=== PATIENT | male | born 1950 | race Caucasian/White ===

== ENCOUNTER 2018-03-05 15:12 | Emergency (ER) | payer OTHER, SELFPAY ==
[2018-03-05 15:22] VITALS: BP 171/103; PULSE 79; RESP 20; TEMP 36.2; O2SAT 98; BMI 29.4
--- NOTE | 2018-03-05 15:27 | DI.RAD.S_ITS ---
PROCEDURE: XR FINGER RT MIN 2V INDICATIONS: injury, pain TECHNIQUE: AP hand, 2 views of the fifth finger(s) acquired. COMPARISON: [facility], , HAND 3V LEFT, 06/24/2017, 11:31. FINDINGS: Bones: No fractures or dislocations. No suspicious bony lesions. Soft tissues: No suspicious soft tissue calcifications. IMPRESSION: No trauma. Dictated by: Quang Jensen M.D. on 03/05/2018 at 15:50 Approved by: Quang Jensen M.D. on 03/05/2018 at 15:51
[2018-03-05 18:36] VITALS: BP 178/109; PULSE 65; RESP 15; O2SAT 100
--- NOTE | 2018-03-05 18:38 | ED.UPPEXIN ---
HPI - Extremity Injury (Upper) <Esther Michelle PA-C - Last Filed: 03/05/18 23:19> General Chief Complaint: Extremity Injury, Upper Stated Complaint: smashed 5th digit right hand at work Time Seen by Provider: 03/05/18 18:37 Source: patient Mode of arrival: ambulatory Limitations: no limitations History of Present Illness HPI narrative: This 67-year-old right-handed gentleman was bringing down a heavy safe from a high shelf at work and his right pinky finger got caught between the safe and a metal beam. He states that this was painful and started bleeding right away. He applied pressure. He denies any other injury. He states that bleeding has improved with pressure. He denies weakness or paresthesia in the finger. He had a tetanus vaccine last summer Related Data Home Medications Medication Instructions Recorded Confirmed ibuprofen [Advil Liqui-Gel] 200 mg PO Q DAY #0 05/03/16 lisinopril 20 mg PO QPM #0 05/17/16 aspirin 81 mg PO QDAY #0 11/09/16 bupropion HCl [Wellbutrin XL] 300 mg PO QAM 08/01/17 08/01/17 Allergies Allergy/AdvReac Type Severity Reaction Status Date / Time penicillin G Allergy Severe ANAPHALATIC Unverified 06/19/17 12:19 SHOCK codeine Allergy Unknown REALLY Unverified 06/19/17 12:19 SICK WITH NAUSEA. Review of Systems <Esther Michelle PA-C - Last Filed: 03/05/18 23:19> Review of Systems All systems reviewed & are unremarkable except as noted in HPI and below Exam <Esther Michelle PA-C - Last Filed: 03/05/18 23:19> Narrative Exam Narrative: GENERAL APPEARANCE: Patient sitting comfortably, in no distress. LUNGS: Clear to auscultation bilaterally. HEART: Rate and rhythm regular without murmur, normal S1 and S2, no S3 or S4. DERMATOLOGIC: Right 5th finger on the lateral border there is a 3 cm partial avulsion angular laceration that is frayed at the edges, not actively bleeding but bleeds freely when manipulated, no foreign body visible. No bone visible. Appears to be 5mm maximal depth Initial Vital Signs Initial Vital Signs: Vital Signs Temperature 97.1 F L 03/05/18 15:22 Pulse Rate 79 03/05/18 15:22 Respiratory Rate 20 03/05/18 15:22 Blood Pressure 171/103 H 03/05/18 15:22 Pulse Oximetry 98 03/05/18 15:22 <DO Nichole Martinez Last Filed: 03/06/18 03:28> Initial Vital Signs Initial Vital Signs: Vital Signs Temperature 97.1 F L 03/05/18 15:22 Pulse Rate 79 03/05/18 15:22 Respiratory Rate 20 03/05/18 15:22 Blood Pressure 171/103 H 03/05/18 15:22 Pulse Oximetry 98 03/05/18 15:22 Procedures <JARRET Viveros Last Filed: 03/05/18 23:19> Laceration Repair Laceration 1: Site: hand (5th finger) Side (If applicable): right Size (cm): 3 Description: linear, flap and clean Depth: simple, single layer Local Anesthetic: lidocaine 1% (digital block) Amount of anesthesia used (mL): 6 Pre-repair: wound explored, irrigated extensively and deep structures intact (bleeding blood vessel cautery attempted, surgifoam and pressure applied with resolution, no deeper structures visible) Size (cm): 5-0 [facility] [place] Procedure Name of Procedure: Finger was dressed and splinted with a foam/metal splint Course <JARRET Viveros Last Filed: 03/05/18 23:19> Orders Ordered: Discontinued Medications Ibuprofen (Advil) 800 mg PO NOW ONE Stop: 03/05/18 19:17 Last Admin: 03/05/18 19:24 Dose: 800 mg Vital Signs - 8 hr 03/05/18 21:11 Pulse Rate 61 Respiratory Rate 20 Blood Pressure 165/97 H Pulse Oximetry 97 <DO Nichole Martinez Last Filed: 03/06/18 03:28> Orders Ordered: Discontinued Medications Ibuprofen (Advil) 800 mg PO NOW ONE Stop: 03/05/18 19:17 Last Admin: 03/05/18 19:24 Dose: 800 mg Vital Signs - 8 hr 03/05/18 21:11 Pulse Rate 61 Respiratory Rate 20 Blood Pressure 165/97 H Pulse Oximetry 97 MDM - Extremity Injury (Upper) <JARRET Viveros Last Filed: 03/05/18 23:19> Imaging Data finger: Radiologist's impression: View Report History Print [address] [address] XRay Report Signed Patient: Jesus Lezama MR#: [id number] : 1950 Acct:[id number] Age/Sex: 67 / M Date of Service: 03/05/18 Loc: ED Accession Number: [id number] Procedure: XR finger RT min 2V Ordering Provider: Myra Barone D.O. PROCEDURE: XR FINGER RT MIN 2V INDICATIONS: injury, pain TECHNIQUE: AP hand, 2 views of the fifth finger(s) acquired. COMPARISON: [facility], CR, HAND 3V LEFT, 06/24/2017, 11:31. FINDINGS: Bones: No fractures or dislocations. No suspicious bony lesions. Soft tissues: No suspicious soft tissue calcifications. IMPRESSION: No trauma. Dictated by: Quang Jensen M.D. on 03/05/2018 at 15:50 Approved by: Quang Jensen M.D. on 03/05/2018 at 15:51 Discharge Plan Departure Patient Disposition: Home Clinical Impression: Laceration of finger Discharge Date/Time: 03/05/18 21:12 Interventions: ED Discharge Assessment Last Done: 03/05/18 21:11 Instructions: DI for Laceration Repair Activity Restrictions/Additional Instructions: Please return or see your PCP right away if you have any signs of infection as we talked about. Your strength seems to be intact on exam today. You did have a lot of bleeding and I could see a blood vessel that was cut in your finger. Since the bleeding has stopped now, please be sure to keep the finger in the splint at all times and avoid pressure on the area so it can heal. The suture should be ready to remove in about 1 week. You can follow up with your PCP or here for this. Prescriptions: No Action ibuprofen [Advil Liqui-Gel] 200 MG capsule 200 mg PO Q DAY Qty: 0 RF: 0 lisinopril 20 MG tablet 20 mg PO QPM Qty: 0 RF: 0 aspirin 81 MG tablet,delayed release (DR/EC) 81 mg PO QDAY Qty: 0 RF: 0 bupropion HCl [Wellbutrin XL] 300 mg Tablet Extended Release 24 Hr 300 mg PO QAM RF: 0 Referrals: Yulissa Woods DO [Primary Care Provider] - <Hardeep Whiting DO - Last Filed: 03/06/18 03:28> Cosign ED Attending Keriature Attestation: I was immediately available in the department for consultation. Documentation has been reviewed. I agree with assessment and plan.
[2018-03-05] MEDS: IBUPROFEN 400 MG TABLET 800 MG PO (19:24)
--- NOTE | 2018-03-05 19:42 | PC.NURSE ---
provider at bedside sutureing pts laceration. pt tolerating provedure.
[2018-03-05 21:11] VITALS: BP 165/97; PULSE 61; RESP 20; O2SAT 97
== END 2018-03-05 21:12 | disposition home or self-care (01) ==
PROVIDERS: Emergency Provider Internal Medicine; Family Provider Family Medicine; PCP Family Medicine
DX: S61.216A Laceration without foreign body of right little finger without damage to nail, initial encounter (principal); W23.0XXA Caught, crushed, jammed, or pinched between moving objects, initial encounter; Y99.0 Civilian activity done for income or pay
CPT/HCPCS: 12002; 29130; 73140; 99282; 99283

== ENCOUNTER 2019-01-28 15:10 | Emergency (ER) | payer MEDICARE, SELFPAY ==
[2019-01-28 15:33] VITALS: BP 159/107; PULSE 90; RESP 20; TEMP 37.1; O2SAT 100; BMI 29.4
[2019-01-28 15:47] LABS: Alanine Aminotransferase 18 IU/L (<50); Albumin 4.4 g/dL (3.5-5.0); Albumin Globulin Ratio 1.5 (1.0-2.8); Alkaline Phosphatase 128 U/L (38-126); Aspartate Aminotransferase 34 IU/L (17-59); Bilirubin Total 0.7 mg/dL (0.2-1.3); Blood Urea Nitrogen 21 mg/dL (9-20); Calcium 9.2 mg/dL (8.4-10.2); Carbon Dioxide 28 mmol/L (22-32); Chloride 103 mmol/L (98-107); Estimated Glomerular Filt Rate 50.5 mL/min (>60); Globulin 2.9 g/dL (1.7-4.1); Glucose 178 mg/dL (80-110); HEMOLYSIS 16 (0-50); Lipase 72 U/L (23-300); Potassium 4.2 mmol/L (3.4-5.1); Sodium 140 mmol/L (137-145); Total Protein 7.3 g/dL (6.3-8.2)
--- NOTE | 2019-01-28 15:48 | ED.ABDPAIN ---
HPI - Abdominal Pain <BEST Reeder - Last Filed: 01/28/19 21:20> General Chief Complaint: Abdominal Pain Stated Complaint: lower abd pain, radiating to back and groin Time Seen by Provider: 01/28/19 15:24 Source: patient Mode of arrival: Ambulatory Limitations: no limitations History of Present Illness HPI narrative: 68-year-old male with a history of prostatitis due few years ago and renal calculi, presents emergency department today complaining of right-sided pain that started today. He states he woke up and noticed a dull aching 8/10 that is worse with movement better with rest. He states the pain radiates down to his right testicle and to his right flank. He states he notes increasing urinary frequency over the past week. He denies any dysuria, fevers, penile discharge, chills nausea, vomiting, diarrhea, or other concerns. Related Data Home Medications Medication Instructions Recorded Confirmed ibuprofen [Advil Liqui-Gel] 200 mg PO Q DAY #0 05/03/16 04/23/18 lisinopril 20 mg PO QPM #0 05/17/16 04/23/18 aspirin 81 mg PO QDAY #0 11/09/16 04/23/18 bupropion HCl [Wellbutrin XL] 300 mg PO QAM 08/01/17 04/23/18 Previous Rx's Medication Instructions Recorded ciprofloxacin HCl 500 mg PO BID 14 Days #28 tab 01/28/19 Allergies Allergy/AdvReac Type Severity Reaction Status Date / Time penicillin G Allergy Severe ANAPHALATIC Verified 01/28/19 15:33 SHOCK codeine Allergy Unknown REALLY Verified 01/28/19 15:33 SICK WITH NAUSEA. Review of Systems <BEST Reeder - Last Filed: 01/28/19 21:20> Review of Systems Narrative: REVIEW OF SYSTEMS: GENERAL: Denies fever, chills, malaise, or wt. loss. HENT: No head trauma, sore throat, or dysphagia. EYES: No loss of vision, double vision, eye pain, or irritation. CARDIOVASCULAR: No chest pain, palpitations, or orthopnea. RESPIRATORY: No shortness of breath or cough. GASTROINTESTINAL: Complains of right lower quadrant pain, see HPI GENITOURINARY: No flank pain, urinary incontinence, hesitancy, frequency, or dysuria. No penile discharge. MUSCULOSKELETAL: No pain, weakness, or trauma. INTEGUMENTARY: No rash, lesions, or pruritus. NEURO: No numbness, tingling, memory loss, confusion, or headaches. PSYCH: No behavior or mood changes. Patient History <BEST Reeder - Last Filed: 01/28/19 21:20> Medical History CLL (chronic lymphocytic leukemia) (Chronic) HTN (hypertension) (Chronic) Social History Smoking Status: Never smoker alcohol intake frequency: a few times a month Substance Use Type: does not use Exam <BEST Reeder - Last Filed: 01/28/19 21:20> Initial Vital Signs Initial Vital Signs: Vital Signs Temperature 98.7 F 01/28/19 15:33 Pulse Rate 90 01/28/19 15:33 Respiratory Rate 20 01/28/19 15:33 Blood Pressure 159/107 H 01/28/19 15:33 Pulse Oximetry 100 01/28/19 15:33 PHYSICAL EXAMINATION: GENERAL: Well groomed, alert, and cooperative. Answers questions promptly and appropriately. Vital signs noted. HENT: Normocephalic, atraumatic. Hearing intact. Oral mucosa is pink and moist. EYES: Conjunctiva pink, sclera white, no periorbital swelling. CARDIOVASCULAR: S1 and S2 sounds normal. Regular rate and rhythm, no murmurs, clicks, or bruits. No pedal edema. RESPIRATORY: Normal respiratory rate, trachea midline, airway patent. No stridor, nasal flaring or accessory muscle use. Lungs are clear in all alba without wheeze, rhonchi, or crackles. GASTROINTESTINAL: Bowel sounds normoactive. Abdomen is soft and mid lower abdominal tenderness. No organomegaly, no palpable masses. Bladder scan shows < 10ml post void. GENITALURINARY/ RECTAL : No flank tenderness. No testicle swelling, tenderness, or redness. Significant tenderness to prostate with digital exam, bogginess with palpation noted. No penile discharge. Nurse present during prostate examination. MUSCULOSKELETAL: Normal gait and coordination. Equal tone and mass bilaterally. EXTREMITIES: CMS intact, no pedal edema. SKIN: Warm, dry, soft, appropriate color for ethnicity. No lesions, rashes, or wounds. NEURO: Alert and Oriented X 3. Good coordination. No ataxia, or sensory deficits, or cognitive issues. PSYCH: Appropriate affect and mood. <Glenroy Joyce DO - Last Filed: 01/29/19 19:42> Initial Vital Signs Initial Vital Signs: Vital Signs Temperature 98.7 F 01/28/19 15:33 Pulse Rate 90 01/28/19 15:33 Respiratory Rate 20 01/28/19 15:33 Blood Pressure 159/107 H 01/28/19 15:33 Pulse Oximetry 100 01/28/19 15:33 Course <BEST Reeder - Last Filed: 01/28/19 21:20> Orders Ordered: ED Orders 01/28/19 15:29 Complete Blood Count AUTO DIFF Stat Comprehensive Metabolic Panel Stat Lipase Stat Consultations Consultation #1: Patient staffed with Dr. Joyce Vital Signs Vital signs: Vital Signs - 8 hr 01/28/19 15:33 01/28/19 16:00 01/28/19 16:47 Temperature 98.7 F Pulse Rate 90 Respiratory Rate 20 Blood Pressure 159/107 H 165/100 H Blood Pressure [Left Arm] 174/95 H Pulse Oximetry 100 <Glenroy Joyce DO - Last Filed: 01/29/19 19:42> Orders Ordered: ED Orders 01/28/19 15:29 Complete Blood Count AUTO DIFF Stat Comprehensive Metabolic Panel Stat Lipase Stat Vital Signs Vital signs: Vital Signs - 8 hr 01/28/19 15:33 01/28/19 16:00 01/28/19 16:47 Temperature 98.7 F Pulse Rate 90 Respiratory Rate 20 Blood Pressure 159/107 H 165/100 H Blood Pressure [Left Arm] 174/95 H Pulse Oximetry 100 MDM - Abdominal Pain <BEST Reeder - Last Filed: 01/28/19 21:20> Medical Records Attestation: I reviewed the patient's medical records. Lab Data Attestation: I reviewed the patient's lab results. Result diagrams: 01/28/19 15:29 01/28/19 15:29 Labs: Lab Results 01/28/19 01/28/19 Range/Units 15:29 15:29 WBC 61.2 H* (4.5-11.0) X10^3/uL RBC 4.86 (4.5-5.9) X10^6/uL Hgb 15.4 (13.5-17.5) g/dL Hct 45.2 (41-53) % MCV 92.9 (80-100) fL MCH 31.6 (26-34) PG MCHC 34.0 (30-36) % RDW 13.7 (11.6-14.8) % Plt Count 233 (150-400) X10^3/uL Neut % (Auto) Not Reportable Lymph % (Auto) Not Reportable [place] % (Auto) Not Reportable Eos % (Auto) Not Reportable Baso % (Auto) Not Reportable Lymph # (Auto) Not Reportable [place] # (Auto) Not Reportable Baso # (Auto) Not Reportable Seg Neutrophils % 15.6 L (38-70) % Band Neutrophils % 1.0 L (3-7) % Lymphocytes % (Manual) 56.0 H (25-45) % Atypical Lymphs % 22.0 H ( - 0) % Monocytes % (Manual) 2.0 (2-11) % Differential Comment Normal morphology Smudge Cells 3+ H RBC Morphology Normal morphology Sodium 140 (137-145) mmol/L Potassium 4.2 (3.4-5.1) mmol/L Chloride 103 (98-107) mmol/L Carbon Dioxide 28 (22-32) mmol/L BUN 21 H (9-20) mg/dL Creatinine 1.40 H (0.66-1.25) mg/dL Estimated GFR 50.5 L (>60) mL/min BUN/Creatinine Ratio 15.0 (6-22) Glucose 178 H (80-110) mg/dL Calcium 9.2 (8.4-10.2) mg/dL Total Bilirubin 0.7 (0.2-1.3) mg/dL AST 34 (17-59) IU/L ALT 18 (<50) IU/L Alkaline Phosphatase 128 H (38-126) U/L Total Protein 7.3 (6.3-8.2) g/dL Albumin 4.4 (3.5-5.0) g/dL Globulin 2.9 (1.7-4.1) g/dL Albumin/Globulin Ratio 1.5 (1.0-2.8) Lipase 72 (23-300) U/L Point of care testing: Urine Dip Bedside Urine Glucose Negative Bedside Urine Bilirubin - Negative Bedside Urine Ketone - Negative Urine Specific [place] 1.015 Bedside Urine Occult Blood - Negative Bedside Urine pH 6.0 Bedside Urine Protein +/- 15 Bedside Urine Urobilinogen - Negative Bedside Urine Nitrite - Negative Bedside Urine Leukocytes - Negative Esterase MDM Narrative Medical decision making narrative: 88-year-old male complaining of right sided abdominal, flank, and groin pain with with a history of prostatitis and renal calculi. Differential includes prostatitis (most likely due to significant pain with prostate examination, description of pain, history of prostatitis), BPH (less likely as patient's bladder scan was negative for urinary tension), less likely epididymitis or testicle torsion (due to lack of pain intensity on palpation or swelling or erythema). Less likely renal calculi due to lack of CVA tenderness and lack of blood in urine. 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 Patient was prescribed ciprofloxacin for prostatitis. He was encouraged to follow up with his primary care provider in the next week for re-evaluation. Extensive counseling was given for new or worsening symptoms and when to return emergency department. Patient understood and agreed with plan of care. <Glenroy Joyce, DO - Last Filed: 01/29/19 19:42> Lab Data Labs: Lab Results 01/28/19 01/28/19 Range/Units 15:29 15:29 WBC 61.2 H* (4.5-11.0) X10^3/uL RBC 4.86 (4.5-5.9) X10^6/uL Hgb 15.4 (13.5-17.5) g/dL Hct 45.2 (41-53) % MCV 92.9 (80-100) fL MCH 31.6 (26-34) PG MCHC 34.0 (30-36) % RDW 13.7 (11.6-14.8) % Plt Count 233 (150-400) X10^3/uL Neut % (Auto) Not Reportable Lymph % (Auto) Not Reportable [place] % (Auto) Not Reportable Eos % (Auto) Not Reportable Baso % (Auto) Not Reportable Lymph # (Auto) Not Reportable [place] # (Auto) Not Reportable Baso # (Auto) Not Reportable Seg Neutrophils % 15.6 L (38-70) % Band Neutrophils % 1.0 L (3-7) % Lymphocytes % (Manual) 56.0 H (25-45) % Atypical Lymphs % 22.0 H ( - 0) % Monocytes % (Manual) 2.0 (2-11) % Differential Comment Normal morphology Smudge Cells 3+ H RBC Morphology Normal morphology Sodium 140 (137-145) mmol/L Potassium 4.2 (3.4-5.1) mmol/L Chloride 103 (98-107) mmol/L Carbon Dioxide 28 (22-32) mmol/L BUN 21 H (9-20) mg/dL Creatinine 1.40 H (0.66-1.25) mg/dL Estimated GFR 50.5 L (>60) mL/min BUN/Creatinine Ratio 15.0 (6-22) Glucose 178 H (80-110) mg/dL Calcium 9.2 (8.4-10.2) mg/dL Total Bilirubin 0.7 (0.2-1.3) mg/dL AST 34 (17-59) IU/L ALT 18 (<50) IU/L Alkaline Phosphatase 128 H (38-126) U/L Total Protein 7.3 (6.3-8.2) g/dL Albumin 4.4 (3.5-5.0) g/dL Globulin 2.9 (1.7-4.1) g/dL Albumin/Globulin Ratio 1.5 (1.0-2.8) Lipase 72 (23-300) U/L Point of care testing: Urine Dip Bedside Urine Glucose Negative Bedside Urine Bilirubin - Negative Bedside Urine Ketone - Negative Urine Specific [place] 1.015 Bedside Urine Occult Blood - Negative Bedside Urine pH 6.0 Bedside Urine Protein +/- 15 Bedside Urine Urobilinogen - Negative Bedside Urine Nitrite - Negative Bedside Urine Leukocytes - Negative Esterase Discharge Plan Departure Patient Disposition: Home Clinical Impression: Acute prostatitis Discharge Date/Time: 01/28/19 16:47 Instructions: DI for Acute Prostatitis Activity Restrictions/Additional Instructions: Thank you for entrusting me with your care today. As discussed, your white count is elevated from last lab dry at 61.2, your renal function is slightly lower creatinine at 1.4 and GFR at 50.5, this may be related to CLL. However, your examination was concerning for prostatitis. I prescribed an antibiotic (sent to [facility] in [place]), please take this as directed. I recommend following up with your primary care provider in the next week for re-evaluation and further discussion of further testing needed. Return emergency department for worsening symptoms such as fevers, difficulty urinating, vomiting, severe abdominal pain, chest pain, shortness of breath, or other concerns. Prescriptions: New ciprofloxacin HCl 500 mg tablet 500 mg PO BID 14 Days Qty: 28 RF: 0 No Action ibuprofen [Advil Liqui-Gel] 200 MG capsule 200 mg PO Q DAY Qty: 0 RF: 0 lisinopril 20 MG tablet 20 mg PO QPM Qty: 0 RF: 0 aspirin 81 MG tablet,delayed release (DR/EC) 81 mg PO QDAY Qty: 0 RF: 0 bupropion HCl [Wellbutrin XL] 300 mg Tablet Extended Release 24 Hr 300 mg PO QAM RF: 0 Referrals: Yulissa Woods DO [Primary Care Provider] - <Glenroy Joyce DO - Last Filed: 01/29/19 19:42> Sign Out Provider Sign Out Attestation: Dr Joyce Co-Sign Statement: I was available for consultation during this patient's emergency department visit. This chart is signed by myself for administrative purposes only. I did not have direct contact with this patient during this visit. They were seen independently by the APC.
[2019-01-28 15:55] LABS: Hematocrit 45.2 % (41-53); Hemoglobin 15.4 g/dL (13.5-17.5); Mean Corpuscular Hemoglobin 31.6 PG (26-34); Mean Corpuscular Volume 92.9 fL (80-100); Platelet Count 233 X10^3/uL (150-400); Red Blood Cell Count 4.86 X10^6/uL (4.5-5.9); Red Cell Distribution Width 13.7 % (11.6-14.8)
[2019-01-28 15:58] LABS: Add Manual Diff / Slide Review YES; White Blood Cell Count 61.2 X10^3/uL (4.5-11.0)
[2019-01-28 16:00] VITALS: BP 174/95
[2019-01-28 16:27] LABS: Morphology Comment Normal Morphology; Segmented Neutrophils Percent 15.6 % (38-70); Smudge Cells 3+
[2019-01-28 16:30] LABS: RBC Morphology Normal Morphology
[2019-01-28 16:47] VITALS: BP 165/100
== END 2019-01-28 16:47 | disposition home or self-care (01) ==
PROVIDERS: Emergency Provider Nurse Practitioner; Family Provider Family Medicine; PCP Family Medicine
DX: R10.31 Right lower quadrant pain (principal); R35.0 Frequency of micturition; D72.829 Elevated white blood cell count, unspecified
CPT/HCPCS: 36415; 51798; 80053; 81003; 83690; 85025; 99283

== ENCOUNTER → 2019-09-17 16:44 | Outpatient (CLI) | payer MEDICARE, SELFPAY ==
[2019-09-17 17:23] LABS: Hematocrit 40.8 % (41-53); Hemoglobin 13.2 g/dL (13.5-17.5); Mean Corpuscular HGB Conc 32.3 % (30-36); Mean Corpuscular Hemoglobin 31.4 PG (26-34); Platelet Count 185 X10^3/uL (150-400)
[2019-09-17 17:26] LABS: Alanine Aminotransferase 30 IU/L (<50); Albumin 4.4 g/dL (3.5-5.0); Albumin Globulin Ratio 1.8 (1.0-2.8); Alkaline Phosphatase 103 U/L (38-126); Aspartate Aminotransferase 44 IU/L (17-59); BUN Creatinine Ratio 16.1 (6-22); Bilirubin Total 0.5 mg/dL (0.2-1.3); Blood Urea Nitrogen 28 mg/dL (9-20); Calcium 9.5 mg/dL (8.4-10.2); Carbon Dioxide 26 mmol/L (22-32); Chloride 107 mmol/L (98-107); Estimated Glomerular Filt Rate 39.2 mL/min (>60); Globulin 2.4 g/dL (1.7-4.1); Glucose 91 mg/dL (80-110); HEMOLYSIS < 15 (0-50); Lactate Dehydrogenase 476 U/L (313-618); Sodium 138 mmol/L (137-145); Total Protein 6.8 g/dL (6.3-8.2)
[2019-09-17 17:39] LABS: Potassium 5.4 mmol/L (3.4-5.1)
[2019-09-17 17:46] LABS: Add Manual Diff / Slide Review YES
[2019-09-17 17:50] LABS: Neutrophils Absolute Manual 3132 /uL (3000-5900); Total Cells Counted 100
[2019-09-17 17:51] LABS: Anisocytosis 1+; Smudge Cells 4+
[2019-09-17 18:04] LABS: White Blood Cell Count 78.3 X10^3/uL (4.5-11.0)
== END ==
PROVIDERS: Family Provider Family Medicine; PCP Family Medicine
DX: C91.90 Lymphoid leukemia, unspecified not having achieved remission (principal)
CPT/HCPCS: 36415; 80053; 83615; 85025

== ENCOUNTER 2020-07-11 17:02 | Observation (INO) | payer MEDICARE, SELFPAY ==
[2020-07-11] VITALS (9 sets, daily range): BP systolic 136–158; BP diastolic 77–93; PULSE 62–72; RESP 18–20; TEMP 36.2–37.4; O2SAT 94–97; BMI 27.9
--- NOTE | 2020-07-11 17:26 | ED.GENADULT ---
HPI - General Adult General Chief complaint: Abdominal Pain Stated complaint: ABD PAIN DIARRHEA Time Seen by Provider: 07/11/20 17:22 Source: patient Mode of arrival: Ambulatory Limitations: no limitations History of Present Illness HPI narrative: Patient is a 70-year-old male. History of CLL. He is followed by oncology but is not currently undergoing any treatment. Here for evaluation approximately 24 hours of suprapubic abdominal discomfort. He states that the night before he did have some episodes of diarrhea so has not had a bowel movement since the episode started. Has been urinating without any problems and he states this has not changed his discomfort. Has had some nausea but no vomiting. No fevers. Has not tried anything for symptoms prior to arrival. Related Data Home Medications Medication Instructions Recorded Confirmed ibuprofen [Advil Liqui-Gel] 200 mg PO Q DAY #0 05/03/16 09/22/19 aspirin 81 mg PO QDAY #0 11/09/16 09/22/19 bupropion HCl [Wellbutrin XL] 300 mg PO QAM 08/01/17 09/22/19 allopurinol 100 mg PO DAILY 04/05/20 04/05/20 Allergies Allergy/AdvReac Type Severity Reaction Status Date / Time penicillin G Allergy Severe ANAPHALATIC Verified 01/28/19 15:33 SHOCK codeine Allergy Unknown REALLY Verified 01/28/19 15:33 SICK WITH NAUSEA. Review of Systems Constitutional Constitutional: Denies chills, Denies fatigue and Denies headache(s) Eyes Eyes: Denies change in vision ENT Ears, Nose, Mouth, and Throat: Denies headache(s) and Denies sore throat Cardiovascular Cardiovascular: Denies chest pain and Denies dyspnea Respiratory Respiratory: Denies dyspnea Gastrointestinal Gastrointestinal: Reports abdominal pain, Denies change in bowel habits, Reports nausea and Denies vomiting Genitourinary Genitourinary: Denies dysuria and Denies testicular pain Genitourinary: Denies dysuria Musculoskeletal Musculoskeletal: Denies arthralgias and Denies myalgias Integumentary/Breasts Skin/Breast: Denies rash Neurologic Neurologic: Denies behavioral changes and Denies headache(s) Psychiatric Psychiatric: Denies behavioral changes Endocrine Endocrine: Denies fatigue Hematologic/Lymphatic On Anticoagulants: No Patient History Medical History CLL (chronic lymphocytic leukemia) HTN (hypertension) Social History Smoking Status: Never smoker Smoking Status: Never smoker alcohol intake frequency: a few times a month Substance Use Type: does not use Exam Initial Vital Signs Initial Vital Signs: Vital Signs Temperature 99.3 F 07/11/20 17:08 Pulse Rate 72 07/11/20 17:08 Respiratory Rate 20 07/11/20 17:08 Blood Pressure 146/84 H 07/11/20 17:08 Pulse Oximetry 97 07/11/20 17:08 Const General: cooperative and comfortable Limitations: mental status not altered HENMT Head: normal to inspection and normocephalic Resp Effort & Inspection: normal respiratory effort Auscultation: clear to auscultation bilaterally Cardio Rate: regular rate Rhythm: regular rhythm GI Inspection: non-distended Palpation: soft and tender (Suprapubic region) Skin Lesions: no lesions Rashes: no rashes Neuro General: patient alert, patient awake and patient oriented x3 Cognition: normal cognition Speech: speech normal Extrem General: normal to inspection and capillary refill normal Psych Appearance: grossly normal and well kempt Course Orders Ordered: ED Orders 07/11/20 17:28 CT abdomen pelvis w con Stat 07/11/20 17:33 Blood Culture Stat Complete Blood Count AUTO DIFF Stat Comprehensive Metabolic Panel Stat Lactate (Lactic Acid) Stat Lipase Stat Partial Thromboplastin Time Stat Procalcitonin Stat Prothrombin Time INR Stat 07/11/20 17:41 EKG-12 Lead Stat 07/11/20 19:15 COVID19 - ADMIT ([employer]ESSOR swab/PCR) Stat 07/11/20 19:26 Consult to General Surgery Stat 07/11/20 19:27 Blood Culture Stat Ciprofloxacin (Cipro) 400 mg in 200 mls @ 200 mls/hr IV NOW BIANCA Metronidazole (Flagyl) 500 mg in 100 mls @ 100 mls/hr IV NOW ONE Stop: 07/11/20 20:07 Last Admin: 07/11/20 19:25 Dose: 100 mls/hr Documented by: EDDY Sodium Chloride (Normal Saline 0.9%) 1,000 mls @ 125 mls/hr IV CONT BIANCA Last Admin: 07/11/20 19:24 Dose: 125 mls/hr Documented by: EDDY Discontinued Medications Sodium Chloride (Normal Saline 0.9%) 1,000 mls @ 1,000 mls/hr IV BOLUS ONE Stop: 07/11/20 18:21 Last Admin: 07/11/20 17:38 Dose: 1,000 mls/hr Documented by: DAVID Vital Signs Vital signs: Vital Signs - 8 hr 07/11/20 17:08 07/11/20 17:23 07/11/20 17:30 Temperature 99.3 F Pulse Rate 72 69 67 Respiratory Rate 20 Blood Pressure 146/84 H 149/93 H Pulse Oximetry 97 96 94 07/11/20 18:00 07/11/20 18:24 07/11/20 18:30 Temperature Pulse Rate 68 65 64 Respiratory Rate 18 Blood Pressure 148/83 H 158/90 H 156/85 H Pulse Oximetry 97 95 94 Medical Decision Making Lab Data Lab results reviewed: Yes I reviewed the patient's lab results. Result diagrams: 07/11/20 17:33 07/11/20 17:33 Labs: Lab Results 07/11/20 07/11/20 07/11/20 Range/Units 17:33 17:33 17:33 WBC 176.0 H* (4.5-11.0) X10^3/uL RBC 4.03 L (4.5-5.9) X10^6/uL Hgb 13.4 L (13.5-17.5) g/dL Hct 39.7 L (41-53) % MCV 98.7 (80-100) fL MCH 33.3 (26-34) PG MCHC 33.8 (30-36) % RDW 14.6 (11.6-14.8) % Plt Count 195 (150-400) X10^3/uL Neut % (Auto) Not Reportable Lymph % (Auto) Not Reportable [place] % (Auto) Not Reportable Eos % (Auto) Not Reportable Baso % (Auto) Not Reportable Lymph # (Auto) Not Reportable [place] # (Auto) Not Reportable Baso # (Auto) Not Reportable Total Counted 100 Seg Neutrophils % 5.0 L (38-70) % Lymphocytes % (Manual) 82.0 H (25-45) % Atypical Lymphs % 11.0 H ( - 0) % Monocytes % (Manual) 2.0 (2-11) % Neutrophils # (Manual) 8800 H (6932-3973) /uL Smudge Cells 3+ H Platelet Estimate Adequate on smear RBC Morphology Normal morphology PT 12.8 H (10.1-12.7) SECONDS INR 1.1 (0.9-1.3) APTT 43 H (26.4-36.2) SECONDS Sodium 136 L (137-145) mmol/L Potassium 4.3 (3.4-5.1) mmol/L Chloride 105 (98-107) mmol/L Carbon Dioxide 23 (22-32) mmol/L BUN 19 (9-20) mg/dL Creatinine 1.51 H (0.66-1.25) mg/dL Estimated GFR 46.0 L (>60) mL/min BUN/Creatinine Ratio 12.6 (6-22) Glucose 98 (80-110) mg/dL Lactate (0.7-2.1) mmol/L Calcium 8.9 (8.4-10.2) mg/dL Total Bilirubin 1.0 (0.2-1.3) mg/dL AST 29 (17-59) IU/L ALT 16 (<50) IU/L Alkaline Phosphatase 129 H (38-126) U/L Total Protein 6.8 (6.3-8.2) g/dL Albumin 4.1 (3.5-5.0) g/dL Globulin 2.7 (1.7-4.1) g/dL Albumin/Globulin Ratio 1.5 (1.0-2.8) Lipase 29 (23-300) U/L Procalcitonin (<0.5) ng/mL 07/11/20 07/11/20 Range/Units 17:33 17:33 WBC (4.5-11.0) X10^3/uL RBC (4.5-5.9) X10^6/uL Hgb (13.5-17.5) g/dL Hct (41-53) % MCV (80-100) fL MCH (26-34) PG MCHC (30-36) % RDW (11.6-14.8) % Plt Count (150-400) X10^3/uL Neut % (Auto) Lymph % (Auto) [place] % (Auto) Eos % (Auto) Baso % (Auto) Lymph # (Auto) [place] # (Auto) Baso # (Auto) Total Counted Seg Neutrophils % (38-70) % Lymphocytes % (Manual) (25-45) % Atypical Lymphs % ( - 0) % Monocytes % (Manual) (2-11) % Neutrophils # (Manual) (7149-8234) /uL Smudge Cells Platelet Estimate RBC Morphology PT (10.1-12.7) SECONDS INR (0.9-1.3) APTT (26.4-36.2) SECONDS Sodium (137-145) mmol/L Potassium (3.4-5.1) mmol/L Chloride (98-107) mmol/L Carbon Dioxide (22-32) mmol/L BUN (9-20) mg/dL Creatinine (0.66-1.25) mg/dL Estimated GFR (>60) mL/min BUN/Creatinine Ratio (6-22) Glucose (80-110) mg/dL Lactate 0.7 (0.7-2.1) mmol/L Calcium (8.4-10.2) mg/dL Total Bilirubin (0.2-1.3) mg/dL AST (17-59) IU/L ALT (<50) IU/L Alkaline Phosphatase (38-126) U/L Total Protein (6.3-8.2) g/dL Albumin (3.5-5.0) g/dL Globulin (1.7-4.1) g/dL Albumin/Globulin Ratio (1.0-2.8) Lipase (23-300) U/L Procalcitonin 0.18 (<0.5) ng/mL Urine Dip Bedside Urine Glucose Negative Bedside Urine Bilirubin - Negative Bedside Urine Ketone - Negative Urine Specific [place] 1.020 Bedside Urine Occult Blood - Negative Bedside Urine pH 6.0 Bedside Urine Protein +/- 15 Bedside Urine Urobilinogen - Negative Bedside Urine Nitrite - Negative Bedside Urine Leukocytes - Negative Esterase Point of care testing: Urine Dip Bedside Urine Glucose Negative Bedside Urine Bilirubin - Negative Bedside Urine Ketone - Negative Urine Specific [place] 1.020 Bedside Urine Occult Blood - Negative Bedside Urine pH 6.0 Bedside Urine Protein +/- 15 Bedside Urine Urobilinogen - Negative Bedside Urine Nitrite - Negative Bedside Urine Leukocytes - Negative Esterase Imaging Data CT scan - abdomen/pelvis: Radiologist's Impression: [address] [id number] Scan ReportSigned Patient: Jesus Lezama DMR#: [id number]: 2Acct:[id number]/Sex: 70 / MDate of Service: 07/11/20Loc: EDAccession Number: [id number] Procedure: CT abdomen pelvis w con Ordering Provider: Glenroy Joyce D.O. PROCEDURE: CT ABDOMEN PELVIS W CON INDICATIONS: Suprapubic, left lower quadrant abdominal pain TECHNIQUE: After the administration of intravenous contrast, 5 mm thick sections acquired from the diaphragm to the symphysis. 5 mm coronal and sagittal reformats were acquired. For radiation dose reduction, the following was used: automated exposure control, adjustment of mA and/or kV according to patient size. COMPARISON: [facility], CT, ABDOMEN/PELVIS WITH CONTRAST, 05/24/2016, 16:54. FINDINGS: Image quality: Excellent. ABDOMEN: Lung bases: Dependent changes are present within the lung bases bilaterally. Heart size is mildly enlarged. Solid organs: Liver is mildly prominent with steatosis. Gallbladder is unremarkable. Biliary system is non dilated. Pancreas enhances normally. Spleen is enlarged. No adrenal nodules. Kidneys demonstrate normal size and enhancement, without hydronephrosis. Peritoneum and bowel: Bowel loops are nonobstructive. There is significant thickening with pericolonic inflammatory change within the sigmoid colon. Colonic diverticula are present. There are several areas of heterogeneous low attenuation with in the colon wall the largest measuring 6 mm. Multiple mesenteric soft tissue densities are noted Nodes and vessels: There are multiple enlarged lymph nodes within the mesentery in the pericolonic region adjacent to the inflammation, as well as screw extending superiorly into the peripancreatic, periportal, aortic caval and periaortic regions. Lymph nodes are also noted extending to the presacral region. They range in size from 2 mm to 20 mm. Aorta and inferior vena cava are normal in size. Miscellaneous: No ventral hernias. PELVIS: Genitourinary: Bladder wall thickness is normal. Miscellaneous: No inguinal hernias or adenopathy. Bones: No suspicious bony lesions. No vertebral body compression fractures. IMPRESSION: 1. Significant sigmoid inflammatory change and wall thickening with diverticula. Overall appearance is suggestive of colitis secondary to diverticulitis. Areas of low attenuation identified within the wall may represent areas of self contained abscess. In addition, there are numerous enlarged lymph nodes within the mesenteric fat and retroperitoneal region as described above. While these could be reactive in nature secondary to colitis, they can also be seen with neoplasm. It is recommended given numerous lymph nodes, there is interval imaging follow-up and/or colonoscopy to document complete resolution of colitis and exclude presence of underlying mass lesion which could represent malignancy. 2. Hepatosplenomegaly with steatosis. Dictated by: Andie Mishra M.D. on 07/11/2020 at 18:43 Approved by: Andie Mishra M.D. on 07/11/2020 at 18:49 [facility] Narrative Medical decision making narrative: Has a significant leukocytosis today but I suspect that this is secondary to diverticulitis on top of his CLL. He does have a relatively benign abdominal exam however CT scan does show colitis concerning for diverticulitis and also areas of small abscesses. I did discuss the case with Dr. Plasencia on-call for General surgery who recommended the patient be admitted for observation and IV antibiotics. He is allergic to penicillin so he was given Cipro and Flagyl. She has that the medicine team admit the patient because of his history of CLL. I did discuss the case with PAOLA Sweeney the [facility] provider who will admit for further evaluation. I did discuss the admission with the patient and he expressed understanding and agreement. Discharge Plan Departure Patient Disposition: Admitted as Observation Clinical Impression: Diverticulitis, Chronic lymphocytic leukemia Admit Date/Time: 07/11/20 19:27 Admit Provider: Charo Sweeney
[2020-07-11] MEDS: SODIUM CHLORIDE 0.9% 1,000 ML 1000 ML IV (17:38)
[2020-07-11 17:51] LABS: INR 1.1 (0.9-1.3); Prothrombin Time 12.8 SECONDS (10.1-12.7)
[2020-07-11 17:54] LABS: PTT Partial Thromboplastin Tim 43 SECONDS (26.4-36.2)
[2020-07-11 17:57] LABS: Hematocrit 39.7 % (41-53); Hemoglobin 13.4 g/dL (13.5-17.5); Mean Corpuscular HGB Conc 33.8 % (30-36); Mean Corpuscular Hemoglobin 33.3 PG (26-34); Mean Corpuscular Volume 98.7 fL (80-100); Platelet Count 195 X10^3/uL (150-400); Red Blood Cell Count 4.03 X10^6/uL (4.5-5.9); Red Cell Distribution Width 14.6 % (11.6-14.8)
[2020-07-11 17:59] LABS: Add Manual Diff / Slide Review YES
[2020-07-11 18:01] LABS: Lactate (Lactic Acid) 0.7 mmol/L (0.7-2.1)
[2020-07-11 18:02] LABS: Alanine Aminotransferase 16 IU/L (<50); Albumin 4.1 g/dL (3.5-5.0); Albumin Globulin Ratio 1.5 (1.0-2.8); Alkaline Phosphatase 129 U/L (38-126); Aspartate Aminotransferase 29 IU/L (17-59); BUN Creatinine Ratio 12.6 (6-22); Blood Urea Nitrogen 19 mg/dL (9-20); Calcium 8.9 mg/dL (8.4-10.2); Carbon Dioxide 23 mmol/L (22-32); Chloride 105 mmol/L (98-107); Globulin 2.7 g/dL (1.7-4.1); Glucose 98 mg/dL (80-110); HEMOLYSIS < 15 (0-50); Lipase 29 U/L (23-300); Potassium 4.3 mmol/L (3.4-5.1); Sodium 136 mmol/L (137-145); Total Protein 6.8 g/dL (6.3-8.2)
[2020-07-11 18:20] LABS: Procalcitonin 0.18 ng/mL (<0.5)
[2020-07-11 18:52] LABS: Neutrophils Absolute Manual 8800 /uL (3000-5900); Smudge Cells 3+; Total Cells Counted 100
[2020-07-11 18:53] LABS: Platelet Estimate Adequate on smear; RBC Morphology Normal Morphology
[2020-07-11] MEDS: SODIUM CHLORIDE 0.9% 1,000 ML 125 ML IV (19:24)
[2020-07-11] MEDS: metroNIDAZOLE 500 MG/100 ML PIGGYBACK 100 MG IV (19:25)
--- NOTE | 2020-07-11 19:25 | PC.NURSE ---
pt noted to be hypertensive. Denies headache, neuro changes, visual changes, chest pain, shortness of breath. States it's always high discussed hypertensive s/s and return precautions. states she feels well.
--- NOTE | 2020-07-11 19:56 | PM.HP.1 ---
History of Present Illness History of Present Illness Date Patient Seen: 07/11/20 Time Patient Seen: 21:23 Chief complaint: ABD PAIN DIARRHEA Narrative: Jesus Lezama is a 70-year-old male with a history of chronic lymphocytic leukemia currently under monitoring, gout, essential hypertension, and anxiety presented with suprapubic abdominal pain. Patient has a history of having kidney stones removed as early as in his late teens but has not had any episodes for a number of years. He did spike a fever of 102 yesterday but stated it it broke on its own. He denies headaches, difficulty swallowing, shortness of breath, chest pain, nausea or vomiting, dysuria, diarrhea or constipation. He states he uses both ibuprofen for any kind of pain that he has. CT scan ordered by the ED indicated ?1) Significant sigmoid inflammatory change and wall thickening with diverticula. Overall appearance is suggestive of colitis secondary to diverticulitis. Areas of low attenuation identified within the wall may represent areas of self contained abscess. In addition, there are numerous enlarged lymph nodes within the mesenteric fat and retroperitoneal region as described above. While these could be reactive in nature secondary to colitis, they can also be seen with neoplasm. It is recommended given numerous lymph nodes, there is interval imaging follow-up and/or colonoscopy to document complete resolution of colitis and exclude presence of underlying mass lesion which could represent malignancy and 2) Hepatosplenomegaly with steatosis.Patient has a low-grade fever of 99.3, blood pressure 145/77, his heart rate is 66, respiratory rate 18, oxygen saturation 94% on room air, he weighs 88.4 kg with a BMI of 28. His WBC is 176, an increase of almost 25,000 over his WBC drawn a month ago. RBC is 4.03, hemoglobin 13.4, hematocrit 39.7 and a platelet count of a 195. His INR is 1.1 and PT is 12.8. Sodium 136, potassium 4.3, chloride 105, bicarb 23, BUN 19, creatinine is 1.51 with a GFR 46, lactate and procalcitonin are negative, and COVID-19 PCR is negative. Patient History Medical History (Updated 07/11/20 @ 21:41 by BEST Hernandez) CKD (chronic kidney disease) stage 3, GFR 30-59 ml/min CLL (chronic lymphocytic leukemia) Gout History of kidney stones HTN (hypertension) Surgical History History of appendectomy History of colonoscopy History of extraction of renal calculus History of inguinal hernia repair History of umbilical hernia repair Family & Social History Family History Mother Myocardial infarct Son Myocardial infarct Father Dementia Tobacco & Substance use: Smoking Status Never smoker alcohol intake frequency a few times a month Substance Use Type does not use Meds Home Medications and Allergies Home Medications Medication Instructions Recorded Confirmed Type ibuprofen [Advil Liqui-Gel] 200 mg PO Q DAY PRN #0 05/03/16 07/11/20 History aspirin 81 mg PO QDAY #0 11/09/16 07/11/20 History bupropion HCl [Wellbutrin XL] 300 mg PO QPM 08/01/17 07/11/20 History allopurinol 100 mg PO DAILY 04/05/20 07/11/20 History Allergies Allergy/AdvReac Type Severity Reaction Status Date / Time penicillin G Allergy Severe ANAPHALATIC Verified 01/28/19 15:33 SHOCK codeine Allergy Unknown REALLY Verified 01/28/19 15:33 SICK WITH NAUSEA. Review of Systems Review of Systems ROS: Yes All systems reviewed with the patient and are negative except as otherwise documented Exam Vital Signs (past 8 hours): - 07/11/20 17:08 07/11/20 17:23 07/11/20 17:30 Temperature 99.3 F Pulse Rate 72 69 67 Respiratory Rate 20 Blood Pressure 146/84 H 149/93 H Pulse Oximetry 97 96 94 07/11/20 18:00 07/11/20 18:24 07/11/20 18:30 Temperature Pulse Rate 68 65 64 Respiratory Rate 18 Blood Pressure 148/83 H 158/90 H 156/85 H Pulse Oximetry 97 95 94 07/11/20 19:00 Temperature Pulse Rate 66 Respiratory Rate 18 Blood Pressure 145/77 H Pulse Oximetry 94 Oxygen Delivery Method Room Air Narrative Exam Narrative: Gen: Alert, oriented, well-developed 70 y.o. male, NAD HEENT: normocephalic, atraumatic, conjunctiva clear, sclera non-icteric, oral mucosa pink and moist Neck: supple, full ROM, no JVD, trachea is midline Resp: Lungs CTA, non-labored breathing CV: RRR, no murmur or rubs Abd: soft, non-tender, normoactive BTs Skin: no lesions or rashes, dry and intact Neuro: Alert and oriented X 4 w/no focal deficits. Speech clear and coherent. Extremities: moves all 4 extremities, is ambulatory, negative Krystian?s sign Psyche: normal mood and affect. Objective Labs Result Diagrams: 07/11/20 17:33 07/11/20 17:33 Labs: Laboratory Results - last 24 hr 07/11/20 07/11/20 07/11/20 17:33 17:33 17:33 WBC 176.0 H* RBC 4.03 L Hgb 13.4 L Hct 39.7 L MCV 98.7 MCH 33.3 MCHC 33.8 RDW 14.6 Plt Count 195 Neut % (Auto) Not Reportable Lymph % (Auto) Not Reportable [place] % (Auto) Not Reportable Eos % (Auto) Not Reportable Baso % (Auto) Not Reportable Lymph # (Auto) Not Reportable [place] # (Auto) Not Reportable Baso # (Auto) Not Reportable Total Counted 100 Seg Neutrophils % 5.0 L Lymphocytes % (Manual) 82.0 H Atypical Lymphs % 11.0 H Monocytes % (Manual) 2.0 Neutrophils # (Manual) 8800 H Smudge Cells 3+ H Platelet Estimate Adequate on smear RBC Morphology Normal morphology PT 12.8 H INR 1.1 APTT 43 H Sodium 136 L Potassium 4.3 Chloride 105 Carbon Dioxide 23 BUN 19 Creatinine 1.51 H Estimated GFR 46.0 L BUN/Creatinine Ratio 12.6 Glucose 98 Lactate Calcium 8.9 Total Bilirubin 1.0 AST 29 ALT 16 Alkaline Phosphatase 129 H Total Protein 6.8 Albumin 4.1 Globulin 2.7 Albumin/Globulin Ratio 1.5 Lipase 29 Procalcitonin 07/11/20 07/11/20 17:33 17:33 WBC RBC Hgb Hct MCV MCH MCHC RDW Plt Count Neut % (Auto) Lymph % (Auto) [place] % (Auto) Eos % (Auto) Baso % (Auto) Lymph # (Auto) [place] # (Auto) Baso # (Auto) Total Counted Seg Neutrophils % Lymphocytes % (Manual) Atypical Lymphs % Monocytes % (Manual) Neutrophils # (Manual) Smudge Cells Platelet Estimate RBC Morphology PT INR APTT Sodium Potassium Chloride Carbon Dioxide BUN Creatinine Estimated GFR BUN/Creatinine Ratio Glucose Lactate 0.7 Calcium Total Bilirubin AST ALT Alkaline Phosphatase Total Protein Albumin Globulin Albumin/Globulin Ratio Lipase Procalcitonin 0.18 Assessment & Plan Assessment & Plan narrative: Jesus Lezama will be observed overnight for further evaluation and treatment for a suspected diverticulitis flareup. General Surgery was consulted by the ED provider who will see the patient in the am. Suspected acute diverticulitis flareup, present on admission - Indicated by abdomen/pelvic CT - He was given a dose of IV Cipro 400 mg and metronidiazole 500 mg. This will be continued BID and QID respectively - Clears tonight and tomorrow with intention to progress diet - Will likely need follow-up colonoscopy outpatient Chronic kidney disease stage 2, likely not an exacerbation - Creatinine is 1.51 with GFR of 46, appears to be at baseline - U/A is negative for a UTI. Chronic lymphocytic leukemia, with a WBC of 176k - His previous WBC was 154 in mid-June of this year - Unknown if rise is due to bacterial infection or worsening course of CLL - He is followed by Dr. 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 Due to current renal impairment, am holding VTE prophylaxis: Wells risk score: 1 Enoxaparin 40 mg subQ daily Consults: Dr. Zuñiga consult and involvement is appreciated. Patient is observation status as stay is not likely to exceed 2 midnights. FEN: IV ns at 100 ml/hour, clears, BMP and magnesium in the am. Dispo: Probable discharge to home on oral antibiotics when he can tolerate an oral diet Code Status: Full code as discussed with patient Scores Wells' Criteria for PE Clinical signs and symptoms of DVT: No PE is #1 Dx or equally likely: No Heart rate > 100: No Immobilization at least 3 days or surg in previous 4 weeks: No History of PE or DVT: No Hemoptysis: No Malignancy w/Treatment within 6 months or palliative: Yes Wells' PE Score total: 1 Quality VTE Deep Vein Thrombosis/Pulmonary Embolism Present on Admission: No MIPS - Admit I confirm the patient?s Advance Care Plan is present, Code status is documented, Surrogate decision maker is in patient?s record [If Yes, STOP here]: Yes
[2020-07-11 20:25] LABS: COVID19 - ADMIT (NP swab/PCR) Negative (Negative)
[2020-07-11 20:47] LABS: Magnesium 2.2 mg/dL (1.6-2.3)
[2020-07-11] MEDS: SODIUM CHLORIDE 0.9% 1,000 ML 100 ML IV (21:56)
[2020-07-11] MEDS: ASPIRIN EC 81 MG TABLET PO (21:57)
[2020-07-11] MEDS: buPROPion XL 150 MG TAB 300 MG PO (22:00)
--- NOTE | 2020-07-11 22:22 | PC.ADMIT ---
[id number] [facility] [address] Admission Note: The patient,Jesus Lezama,70 y/o, was given written information regarding hospital policies, unit procedures and contact persons. Patient's smoking status: Never smoker. Vital Signs - 8 hr 07/11/20 17:08 07/11/20 17:23 07/11/20 17:30 Temperature 99.3 F Pulse Rate 72 69 67 Respiratory Rate 20 Blood Pressure 146/84 H 149/93 H Pulse Oximetry 97 96 94 07/11/20 18:00 07/11/20 18:24 07/11/20 18:30 Temperature Pulse Rate 68 65 64 Respiratory Rate 18 Blood Pressure 148/83 H 158/90 H 156/85 H Pulse Oximetry 97 95 94 07/11/20 19:00 07/11/20 20:20 Temperature 99.0 F Pulse Rate 66 66 Respiratory Rate 18 20 Blood Pressure 145/77 H 141/87 H Pulse Oximetry 94 95 Patient admitted from ER to under hospitalist care at 2049. Patient A/Ox4, on RA, ambulatory. Patient says he's had abdominal pain and some diarrhea. Current pain was tolerable and only when moving. Patient had NS and Flagyl running from ED. Patient was oriented to room and call light system, able to make needs known.
[2020-07-12] MEDS: metroNIDAZOLE 500 MG/100 ML PIGGYBACK 100 MG IV ×2 (02:07→08:27)
[2020-07-12 03:13] LABS: RBC Urine None Seen (0-5/HPF); WBC Urine None Seen (0-5/HPF)
[2020-07-12 03:26] LABS: Squamous Epithelial Cell Urine 0-1 /HPF (0-5/HPF)
[2020-07-12 03:27] LABS: Bacteria Urine Few (2-10); Culture Indicated Urine Cult Not Indicated
[2020-07-12 05:54] LABS: BUN Creatinine Ratio 12.7 (6-22); Blood Urea Nitrogen 17 mg/dL (9-20); Calcium 8.2 mg/dL (8.4-10.2); Carbon Dioxide 23 mmol/L (22-32); Chloride 108 mmol/L (98-107); Estimated Glomerular Filt Rate 52.9 mL/min (>60); Glucose 83 mg/dL (80-110); HEMOLYSIS < 15 (0-50); Magnesium 2.3 mg/dL (1.6-2.3); Sodium 136 mmol/L (137-145)
[2020-07-12 05:55] LABS: Hematocrit 38.4 % (41-53); Hemoglobin 12.1 g/dL (13.5-17.5); Mean Corpuscular HGB Conc 31.7 % (30-36); Mean Corpuscular Hemoglobin 31.9 PG (26-34); Mean Corpuscular Volume 100.6 fL (80-100); Platelet Count 173 X10^3/uL (150-400); Red Blood Cell Count 3.81 X10^6/uL (4.5-5.9); Red Cell Distribution Width 14.4 % (11.6-14.8)
[2020-07-12 06:00] LABS: Add Manual Diff / Slide Review YES
[2020-07-12 06:01] LABS: White Blood Cell Count 135.7 X10^3/uL (4.5-11.0)
[2020-07-12 06:02] LABS: Potassium 5.1 mmol/L (3.4-5.1)
[2020-07-12 06:37] LABS: Neutrophils Absolute Manual 9499 /uL (3000-5900); Total Cells Counted 100
[2020-07-12 06:38] LABS: Platelet Estimate Adequate on smear; Smudge Cells 3+
[2020-07-12 06:40] LABS: Macrocytosis 1+
[2020-07-12] MEDS: CIPROFLOXACIN 400 MG/200 ML PIGGYBACK 200 MG IV (06:41)
[2020-07-12 07:15] VITALS: BP 141/92; PULSE 63; RESP 17; TEMP 36.6; O2SAT 94
[2020-07-12] MEDS: ENOXAPARIN 40 MG/0.4 ML SYRINGE SUBCUT (08:28)
[2020-07-12 08:37] VITALS: O2SAT 97
[2020-07-12] MEDS: SODIUM CHLORIDE 0.9% 1,000 ML 100 ML IV (09:09)
--- NOTE | 2020-07-12 09:45 | PM.CN ---
History of Present Illness Consult details Date Patient Seen: 07/12/20 Time Patient Seen: 09:45 Chief complaint: ABD PAIN DIARRHEA Reason for consult: Diverticulitis Requesting provider: Charo Sweeney Narrative: This is a 70 yo man with history of CLL (WBC>150,000) not on active treatment, h/o multiple abdominal surgeries for hernia repairs, diverticulosis, and last colonoscopy 2-3 years ago. The patient came into the ER last evening with c/o suprapubic pain. CT scan showed colitis/diverticulitis with possible small abscesses. His WBC was 176 in the ER last night, and this morning was 135. He says his pain is slightly better today. He is passing gas but no stool. He had some diarrhea yesterday, but has not passed any stool since then. He denies any melena, hematochezia, nausea, vomiting. ROS: Constitutional: Denies chills, Denies fatigue and Denies headache(s) Eyes: Denies change in vision Ears, Nose, Mouth, and Throat: Denies headache(s) and Denies sore throat Cardiovascular: Denies chest pain and Denies dyspnea Respiratory: Denies dyspnea Gastrointestinal: As per HPI Genitourinary: Denies dysuria and Denies testicular pain Musculoskeletal: Denies arthralgias and Denies myalgias Skin/Breast: Denies rash Neurologic: Denies behavioral changes and Denies headache(s) Endocrine: Denies fatigue PE: GENERAL: Alert, comfortable. In no distress. Well groomed and cooperative. Appears stated age. Answers questions promptly and appropriately. Vital signs noted. HENT: Normocephalic, atraumatic. Hearing intact. EYES: Conjunctiva pink, sclera white, no periorbital swelling. CARDIOVASCULAR: Regular rate. No pedal edema. RESPIRATORY: Non-tachypneic, breathing comfortably on room air. GASTROINTESTINAL: Abdomen soft and non-distended, no generalized peritonitis. Focal tenderness to palpation in the lower abdomen, right greater than left. Area of greatest tenderness is centralized over the suprapubic region. GENITALURINARY: No flank tenderness. MUSCULOSKELETAL: Equal tone and mass bilaterally. SKIN: Warm, dry, soft, appropriate color for ethnicity. No other lesions, rashes, or wounds. NEURO: Alert and Oriented X 3. No gross sensory deficits, or cognitive issues. PSYCH: Appropriate affect and mood. Meds Home Medications and Allergies Home Medications Medication Instructions Recorded Confirmed Type ibuprofen [Advil Liqui-Gel] 200 mg PO Q DAY PRN #0 05/03/16 07/11/20 History aspirin 81 mg PO QDAY #0 11/09/16 07/11/20 History bupropion HCl [Wellbutrin XL] 300 mg PO QPM 08/01/17 07/11/20 History allopurinol 100 mg PO DAILY 04/05/20 07/11/20 History ciprofloxacin HCl [Cipro] 500 mg PO BID #26 tab 07/12/20 Rx metronidazole [Flagyl] 500 mg PO TID 13 Days #39 tab 07/12/20 Rx Allergies Allergy/AdvReac Type Severity Reaction Status Date / Time penicillin G Allergy Severe ANAPHALATIC Verified 01/28/19 15:33 SHOCK codeine Allergy Unknown REALLY Verified 01/28/19 15:33 SICK WITH NAUSEA. Exam Vital Signs (past 8 hours): - 07/12/20 07:15 07/12/20 08:37 Temperature 97.9 F Pulse Rate 63 Respiratory Rate 17 Blood Pressure 141/92 H Pulse Oximetry 94 97 Oxygen Delivery Method Room Air Oxygen Flow Rate [address] scan - abdomen: Radiologist's impression: [address] [id number] Scan ReportSigned Patient: Jesus Lezama [facility]#: [id number]: 2Acct:[id number]/Sex: 70 / MDate of Service: 07/11/20Loc: EDAccession Number: [id number] Procedure: CT abdomen pelvis w con Ordering Provider: Glenroy Joyce D.O. PROCEDURE: CT ABDOMEN PELVIS W CON INDICATIONS: Suprapubic, left lower quadrant abdominal pain TECHNIQUE: After the administration of intravenous contrast, 5 mm thick sections acquired from the diaphragm to the symphysis. 5 mm coronal and sagittal reformats were acquired. For radiation dose reduction, the following was used: automated exposure control, adjustment of mA and/or kV according to patient size. COMPARISON: [facility], CT, ABDOMEN/PELVIS WITH CONTRAST, 05/24/2016, 16:54. FINDINGS: Image quality: Excellent. ABDOMEN: Lung bases: Dependent changes are present within the lung bases bilaterally. Heart size is mildly enlarged. Solid organs: Liver is mildly prominent with steatosis. Gallbladder is unremarkable. Biliary system is non dilated. Pancreas enhances normally. Spleen is enlarged. No adrenal nodules. Kidneys demonstrate normal size and enhancement, without hydronephrosis. Peritoneum and bowel: Bowel loops are nonobstructive. There is significant thickening with pericolonic inflammatory change within the sigmoid colon. Colonic diverticula are present. There are several areas of heterogeneous low attenuation with in the colon wall the largest measuring 6 mm. Multiple mesenteric soft tissue densities are noted Nodes and vessels: There are multiple enlarged lymph nodes within the mesentery in the pericolonic region adjacent to the inflammation, as well as screw extending superiorly into the peripancreatic, periportal, aortic caval and periaortic regions. Lymph nodes are also noted extending to the presacral region. They range in size from 2 mm to 20 mm. Aorta and inferior vena cava are normal in size. Miscellaneous: No ventral hernias. PELVIS: Genitourinary: Bladder wall thickness is normal. Miscellaneous: No inguinal hernias or adenopathy. Bones: No suspicious bony lesions. No vertebral body compression fractures. IMPRESSION: 1. Significant sigmoid inflammatory change and wall thickening with diverticula. Overall appearance is suggestive of colitis secondary to diverticulitis. Areas of low attenuation identified within the wall may represent areas of self contained abscess. In addition, there are numerous enlarged lymph nodes within the mesenteric fat and retroperitoneal region as described above. While these could be reactive in nature secondary to colitis, they can also be seen with neoplasm. It is recommended given numerous lymph nodes, there is interval imaging follow-up and/or colonoscopy to document complete resolution of colitis and exclude presence of underlying mass lesion which could represent malignancy. 2. Hepatosplenomegaly with steatosis. Dictated by: Andie Mishra M.D. on 07/11/2020 at 18:43 Labs Result Diagrams: 07/12/20 05:10 07/12/20 05:10 Labs: Laboratory Results - last 24 hr 07/11/20 07/11/20 07/11/20 17:33 17:33 17:33 WBC 176.0 H* RBC 4.03 L Hgb 13.4 L Hct 39.7 L MCV 98.7 MCH 33.3 MCHC 33.8 RDW 14.6 Plt Count 195 Neut % (Auto) Not Reportable Lymph % (Auto) Not Reportable [place] % (Auto) Not Reportable Eos % (Auto) Not Reportable Baso % (Auto) Not Reportable Lymph # (Auto) Not Reportable [place] # (Auto) Not Reportable Baso # (Auto) Not Reportable Total Counted 100 Seg Neutrophils % 5.0 L Lymphocytes % (Manual) 82.0 H Atypical Lymphs % 11.0 H Monocytes % (Manual) 2.0 Neutrophils # (Manual) 8800 H Smudge Cells 3+ H Platelet Estimate Adequate on smear RBC Morphology Normal morphology Macrocytosis PT 12.8 H INR 1.1 APTT 43 H Sodium 136 L Potassium 4.3 Chloride 105 Carbon Dioxide 23 BUN 19 Creatinine 1.51 H Estimated GFR 46.0 L BUN/Creatinine Ratio 12.6 Glucose 98 Lactate Calcium 8.9 Magnesium Total Bilirubin 1.0 AST 29 ALT 16 Alkaline Phosphatase 129 H Total Protein 6.8 Albumin 4.1 Globulin 2.7 Albumin/Globulin Ratio 1.5 Lipase 29 Procalcitonin Urine RBC Urine WBC Ur Squamous Epith Cells Urine Bacteria Ur Culture Indicated? SARS-CoV-2 (PCR) 07/11/20 07/11/20 07/11/20 17:33 17:33 17:33 WBC RBC Hgb Hct MCV MCH MCHC RDW Plt Count Neut % (Auto) Lymph % (Auto) [place] % (Auto) Eos % (Auto) Baso % (Auto) Lymph # (Auto) [place] # (Auto) Baso # (Auto) Total Counted Seg Neutrophils % Lymphocytes % (Manual) Atypical Lymphs % Monocytes % (Manual) Neutrophils # (Manual) Smudge Cells Platelet Estimate RBC Morphology Macrocytosis PT INR APTT Sodium Potassium Chloride Carbon Dioxide BUN Creatinine Estimated GFR BUN/Creatinine Ratio Glucose Lactate 0.7 Calcium Magnesium 2.2 Total Bilirubin AST ALT Alkaline Phosphatase Total Protein Albumin Globulin Albumin/Globulin Ratio Lipase Procalcitonin 0.18 Urine RBC Urine WBC Ur Squamous Epith Cells Urine Bacteria Ur Culture Indicated? SARS-CoV-2 (PCR) 07/11/20 07/11/20 07/12/20 17:33 19:25 01:15 WBC RBC Hgb Hct MCV MCH MCHC RDW Plt Count Neut % (Auto) Lymph % (Auto) [place] % (Auto) Eos % (Auto) Baso % (Auto) Lymph # (Auto) [place] # (Auto) Baso # (Auto) Total Counted Seg Neutrophils % Lymphocytes % (Manual) Atypical Lymphs % Monocytes % (Manual) Neutrophils # (Manual) Smudge Cells Platelet Estimate RBC Morphology Macrocytosis PT INR APTT Sodium Potassium Chloride Carbon Dioxide BUN Creatinine Estimated GFR BUN/Creatinine Ratio Glucose Lactate Calcium Magnesium Total Bilirubin AST ALT Alkaline Phosphatase Total Protein Albumin Globulin Albumin/Globulin Ratio Lipase Procalcitonin 0.20 Urine RBC None seen Urine WBC None seen Ur Squamous Epith Cells 0-1 /hpf Urine Bacteria Few (2-10) H Ur Culture Indicated? Cult not indicated SARS-CoV-2 (PCR) Negative 07/12/20 07/12/20 05:10 05:10 WBC 135.7 H* RBC 3.81 L Hgb 12.1 L Hct 38.4 L MCV 100.6 H MCH 31.9 MCHC 31.7 RDW 14.4 Plt Count 173 Neut % (Auto) Not Reportable Lymph % (Auto) Not Reportable [place] % (Auto) Not Reportable Eos % (Auto) Not Reportable Baso % (Auto) Not Reportable Lymph # (Auto) Not Reportable [place] # (Auto) Not Reportable Baso # (Auto) Not Reportable Total Counted 100 Seg Neutrophils % 7.0 L Lymphocytes % (Manual) 86.0 H Atypical Lymphs % 7.0 H Monocytes % (Manual) Neutrophils # (Manual) 9499 H Smudge Cells 3+ H Platelet Estimate Adequate on smear RBC Morphology See below Macrocytosis 1+ H PT INR APTT Sodium 136 L Potassium 5.1 Chloride 108 H Carbon Dioxide 23 BUN 17 Creatinine 1.34 H Estimated GFR 52.9 L BUN/Creatinine Ratio 12.7 Glucose 83 Lactate Calcium 8.2 L Magnesium 2.3 Total Bilirubin AST ALT Alkaline Phosphatase Total Protein Albumin Globulin Albumin/Globulin Ratio Lipase Procalcitonin Urine RBC Urine WBC Ur Squamous Epith Cells Urine Bacteria Ur Culture Indicated? SARS-CoV-2 (PCR) Assessment & Plan Assessment and plan (1) Diverticulitis: Status: Acute (2) CKD (chronic kidney disease) stage 3, GFR 30-59 ml/min: Status: Suspected (3) Chronic lymphocytic leukemia: Status: Acute (4) Gout: Status: Chronic (5) History of hernia repair: Status: Acute (6) History of abdominal surgery: Status: Acute Assessment & Plan narrative: This is a 70-year-old man with acute diverticulitis in the setting of CLL with an extremely high white count. His white count is down a bit this morning, and he feels his pain is improving somewhat. On review of his CT scan I do not find he has any significant evidence of complicated diverticulitis. Given his overall picture, I think he is likely safe to go home on oral antibiotics. I spoke with Dr. Alexander of the hospitalist service this morning, and she plans to speak with Dr. Rendon, which I think is a good idea before letting the patient go home. When he does go home, I would recommend that he take 2 weeks of oral antibiotics, along with a probiotic, and follow-up with his primary care doctor. He is not completely sure when his last colonoscopy was, but I recommended that he have a repeat colonoscopy if it has been more than 5 years. He thinks it may have been 2-3 years, and that the colonoscopy was normal other than diverticulosis. I told him is welcome to follow up with me in my office if he has any further episodes of diverticulitis, or like to consider surgery for removing that part of the colon. Given that this is the 1st episode of diverticulitis, and is relatively mild, I do not think surgery is indicated at this time. If his colonoscopy has been greater than 5 years, or he continues to have symptoms, I will be happy to schedule him for colonoscopy with myself or 1 of my partners. He will need about 6-8 weeks to recover from this diverticulitis episode before we would scope him. COVID-19 COVID-19 status: Negative Result date/Date tested (Pos, Neg/Pending): 07/11/20 Time Spent With Patient Time with patient: Greater than 35 minutes
--- NOTE | 2020-07-12 10:46 | CM.DANOTE ---
DCP: Case received, EMR reviewed and met with patient. Introduced self and role. Was able to obtain information from patient regarding his baseline activity status prior to hospitalization, as well as his current living situation. DCP assessment completed with information currently available. Patient is a 70 year old male who admitted yesterday evening to the care of the hospitalist team. PCP: Dr. Woods. Payer: confirmed: [employer] Medicare. Patient came to the hospital via private vehicle secondary to having abdominal discomfort and diarrhea. Patient holds current diagnosis of colitis secondary to diverticulitis. He is currently getting IV antibiotics. Patient has history of chronic lymphocytic leukemia, and is under treatment. Met with patient in his room, as well as during bedside rounds. Patient was sitting up in his chair, alert and oriented, pleasant. Patient resides in [place] with his spouse, Sanjuana. He is independent at his baseline, and is employed at [employer] in [place]. P: DCP to continue to follow. Plan is for home, could potentially discharge this pm as long as he is able to tolerate diet. Tina Naik RN/[employer] Cutting Machine Operator
[2020-07-12] MEDS: metroNIDAZOLE 500 MG TABLET PO (12:13)
--- NOTE | 2020-07-12 14:02 | PC.NURSE ---
Day shift: Paperwork singed and all questions answered. Pt has all personal belongings. MD scripts sent to Pt's pharmacy by MD willy. Taken to car driven by his spouse by student RN in . Encouraged to contact his PCP for f/u soon. Also encouraged to contact his oncology MD about this hospital admit. Pt happy to be going home today.
--- NOTE | 2020-07-12 17:45 | P.DS_ITS ---
History of Present Illness History of Present Illness Date Patient Seen: 07/12/20 Chief complaint: ABD PAIN DIARRHEA Narrative: Jesus Lezama is a 70-year-old male with a history of chronic l ymphocytic leukemia currently under monitoring, gout, essential hypertension, and anxiety presented with suprapubic abdominal pain. Patient has a history of having kidney stones removed as early as in his late teens but has not had any episodes for a number of years. He did spike a fever of 102 yesterday but stated it it broke on its own. He denies headaches, difficulty swallowing, shortness of breath, chest pain, nausea or vomiting, dysuria, diarrhea or constipation. He states he uses both ibuprofen for any kind of pain that he has. CT scan ordered by the ED indicated ?1) Significant sigmoid inflammatory change and wall thickening with diverticula. Overall appearance is suggestive of colitis secondary to diverticulitis. Areas of low attenuation identified within the wall may represent areas of self contained abscess. In addition, there are numerous enlarged lymph nodes within the mesenteric fat and retroperitoneal region as described above. While these could be reactive in nature secondary to colitis, they can also be seen with neoplasm. It is recommended given numerous lymph nodes, there is interval imaging follow-up and/or colonoscopy to document complete resolution of colitis and exclude presence of underlying mass lesion which could represent malignancy and 2) Hepatosplenomegaly with steatosis.Patient has a low-grade fever of 99.3, blood pressure 145/77, his hea rt rate is 66, respiratory rate 18, oxygen saturation 94% on room air, he weighs 88.4 kg with a BMI of 28. His WBC is 176, an increase of almost 25,000 over his WBC drawn a month ago. RBC is 4.03, hemoglobin 13.4, hematocrit 39.7 and a platelet count of a 195. His INR is 1.1 and PT is 12.8. Sodium 136, potassium 4.3, chloride 105, bicarb 23, BUN 19, creatinine is 1.51 with a GFR 46, lactate and procalcitonin are negative, and COVID-19 PCR is negative. Discharge Providers Provider Date of admission: 07/11/20 19:27 Discharge Date: 07/12/20 Primary care physician: Yulissa Woods DO Consults: 07/11/20 19:26 Consult to General Surgery Stat Comment: Consulting Provider: Alix Zuñiga Reason for consultation: Diverticulitis with abscess Has provider been notified: Yes 07/11/20 19:54 Consult to Physician Routine Comment: Consulting Provider: Alix Zuñiga Reason for consultation: Acute diverticulitis Has provider been notified: Yes Discharge provider: Saida Alexander MD Summary Hospital Course Discharge Diagnosis: Acute diverticulitis Chronic lymphocytic leukemia Gout Hypertension Chronic kidney disease stage 3 Hospital Course: Patient was admitted to the hospital for abdominal pain. CT scan confirmed acute diverticulitis. The patient does have known CLL. His initial white count was [id number]. It subsequently improved to 130,000 hundred and thirty thousand. Patient had improvement of his abdominal pain. His diet was advanced from clear to full liquid which he tolerated. He was deemed appropriate for discharge and arrangements were made for him to discharge home. The patient will be prescribed 2 weeks of antibiotics. He will follow-up with his PCP Dr. Christianson in 1-2 weeks. He will follow-up with Dr. Rendon as previously scheduled. Status at Discharge Cognitive/behavioral status at discharge: oriented Functional status at discharge: independent ambulation Overall status at discharge: patient is back to baseline Time Spent with Patient Time spent: Less than 30 minutes Exam Vital Signs (past 8 hours): Oxygen Delivery Method Room Air Oxygen Flow Rate 0 Narrative Exam Narrative: Pleasant gentleman in no acute distress Lungs: Clear to auscultation Cardiac exam: Regular rate and rhythm normal S1-S2 Abdomen: Mild tenderness in the right lower quadrant, no rebound tenderness, no board-like rigidity Extremities: No edema Objective Labs Result Diagrams: 07/12/20 05:10 07/12/20 05:10 Labs: Laboratory Results - last 24 hr 07/11/20 07/11/20 07/11/20 17:33 17:33 17:33 WBC 176.0 H* RBC 4.03 L Hgb 13.4 L Hct 39.7 L MCV 98.7 MCH 33.3 MCHC 33.8 RDW 14.6 Plt Count 195 Neut % (Auto) Not Reportable Lymph % (Auto) Not Reportable [place] % (Auto) Not Reportable Eos % (Auto) Not Reportable Baso % (Auto) Not Reportable Lymph # (Auto) Not Reportable [place] # (Auto) Not Reportable Baso # (Auto) Not Reportable Total Counted 100 Seg Neutrophils % 5.0 L Lymphocytes % (Manual) 82.0 H Atypical Lymphs % 11.0 H Monocytes % (Manual) 2.0 Neutrophils # (Manual) 8800 H Smudge Cells 3+ H Platelet Estimate Adequate on smear RBC Morphology Normal morphology Macrocytosis PT 12.8 H INR 1.1 APTT 43 H Sodium 136 L Potassium 4.3 Chloride 105 Carbon Dioxide 23 BUN 19 Creatinine 1.51 H Estimated GFR 46.0 L BUN/Creatinine Ratio 12.6 Glucose 98 Lactate Calcium 8.9 Magnesium Total Bilirubin 1.0 AST 29 ALT 16 Alkaline Phosphatase 129 H Total Protein 6.8 Albumin 4.1 Globulin 2.7 Albumin/Globulin Ratio 1.5 Lipase 29 Procalcitonin Urine RBC Urine WBC Ur Squamous Epith Cells Urine Bacteria Ur Culture Indicated? SARS-CoV-2 (PCR) 07/11/20 07/11/20 07/11/20 17:33 17:33 17:33 WBC RBC Hgb Hct MCV MCH MCHC RDW Plt Count Neut % (Auto) Lymph % (Auto) [place] % (Auto) Eos % (Auto) Baso % (Auto) Lymph # (Auto) [place] # (Auto) Baso # (Auto) Total Counted Seg Neutrophils % Lymphocytes % (Manual) Atypical Lymphs % Monocytes % (Manual) Neutrophils # (Manual) Smudge Cells Platelet Estimate RBC Morphology Macrocytosis PT INR APTT Sodium Potassium Chloride Carbon Dioxide BUN Creatinine Estimated GFR BUN/Creatinine Ratio Glucose Lactate 0.7 Calcium Magnesium 2.2 Total Bilirubin AST ALT Alkaline Phosphatase Total Protein Albumin Globulin Albumin/Globulin Ratio Lipase Procalcitonin 0.18 Urine RBC Urine WBC Ur Squamous Epith Cells Urine Bacteria Ur Culture Indicated? SARS-CoV-2 (PCR) 07/11/20 07/11/20 07/12/20 17:33 19:25 01:15 WBC RBC Hgb Hct MCV MCH MCHC RDW Plt Count Neut % (Auto) Lymph % (Auto) [place] % (Auto) Eos % (Auto) Baso % (Auto) Lymph # (Auto) [place] # (Auto) Baso # (Auto) Total Counted Seg Neutrophils % Lymphocytes % (Manual) Atypical Lymphs % Monocytes % (Manual) Neutrophils # (Manual) Smudge Cells Platelet Estimate RBC Morphology Macrocytosis PT INR APTT Sodium Potassium Chloride Carbon Dioxide BUN Creatinine Estimated GFR BUN/Creatinine Ratio Glucose Lactate Calcium Magnesium Total Bilirubin AST ALT Alkaline Phosphatase Total Protein Albumin Globulin Albumin/Globulin Ratio Lipase Procalcitonin 0.20 Urine RBC None seen Urine WBC None seen Ur Squamous Epith Cells 0-1 /hpf Urine Bacteria Few (2-10) H Ur Culture Indicated? Cult not indicated SARS-CoV-2 (PCR) Negative 07/12/20 07/12/20 05:10 05:10 WBC 135.7 H* RBC 3.81 L Hgb 12.1 L Hct 38.4 L MCV 100.6 H MCH 31.9 MCHC 31.7 RDW 14.4 Plt Count 173 Neut % (Auto) Not Reportable Lymph % (Auto) Not Reportable [place] % (Auto) Not Reportable Eos % (Auto) Not Reportable Baso % (Auto) Not Reportable Lymph # (Auto) Not Reportable [place] # (Auto) Not Reportable Baso # (Auto) Not Reportable Total Counted 100 Seg Neutrophils % 7.0 L Lymphocytes % (Manual) 86.0 H Atypical Lymphs % 7.0 H Monocytes % (Manual) Neutrophils # (Manual) 9499 H Smudge Cells 3+ H Platelet Estimate Adequate on smear RBC Morphology See below Macrocytosis 1+ H PT INR APTT Sodium 136 L Potassium 5.1 Chloride 108 H Carbon Dioxide 23 BUN 17 Creatinine 1.34 H Estimated GFR 52.9 L BUN/Creatinine Ratio 12.7 Glucose 83 Lactate Calcium 8.2 L Magnesium 2.3 Total Bilirubin AST ALT Alkaline Phosphatase Total Protein Albumin Globulin Albumin/Globulin Ratio Lipase Procalcitonin Urine RBC Urine WBC Ur Squamous Epith Cells Urine Bacteria Ur Culture Indicated? SARS-CoV-2 (PCR) [facility] Medical History CKD (chronic kidney disease) stage 3, GFR 30-59 ml/min CLL (chronic lymphocytic leukemia) Gout History of kidney stones HTN (hypertension) Surgical History History of appendectomy History of colonoscopy History of extraction of renal calculus History of inguinal hernia repair History of umbilical hernia repair Family History Mother Myocardial infarct Son Myocardial infarct Father Dementia Social History household members: spouse Smoking Status: Never smoker Discharge Assessment & Plan Assessment and Plan Assessment: 1. Acute diverticulitis 2. CLL 3. Hypertension 4. Chronic kidney disease stage 3 Plan of Treatment: Antibiotics as prescribed Follow-up with Dr. Painting in 1-2 weeks Follow-up with Dr. Rendon as scheduled Discharge Plan Discharge Plan Patient Disposition: Home Discharge orders & Medications Prescriptions: New ciprofloxacin HCl [Cipro] 500 mg tablet 500 mg PO BID Qty: 26 RF: 0 metronidazole [Flagyl] 500 mg tablet 500 mg PO TID 13 Days Qty: 39 RF: 0 Continued ibuprofen [Advil Liqui-Gel] 200 MG capsule 200 mg PO Q DAY PRN (Reason: Pain (Scale Score 1-3)) Qty: 0 RF: 0 aspirin 81 MG tablet,delayed release (DR/EC) 81 mg PO QDAY Qty: 0 RF: 0 bupropion HCl [Wellbutrin XL] 300 mg Tablet Extended Release 24 Hr 300 mg PO QPM RF: 0 allopurinol 100 mg Tablet 100 mg PO DAILY RF: 0 Follow up/Referrals: Yulissa Woods DO [Primary Care Provider] - Discharge Health Status Multidrug resistant organism: No MDRO Diet/Activity/Treatments Diet: Diet as Tolerated Skin/Wound/Dressing Care Report to your healthcare provider any signs of infection, such as:: chills, fever Visit Report/Discharge Packet Instructions: Diverticulitis, DI for Diverticulitis, How to Prevent Falls, Ciprofloxacin, Metronidazole Discharge Data Primary Care Provider: Yulissa Woods Attending Provider: Charo Sweeney VTE Deep Vein Thrombosis/Pulmonary Embolism Present on Admission: No
[2020-07-14 01:34] LABS: Acinetobacter baumannii Not Detected (Not Detect); Candida albicans Not Detected (Not Detect); Candida glabrata Not Detected (Not Detect); Candida krusei Not Detected (Not Detect); Candida parapsilosis Not Detected (Not Detect); Candida tropicalis Not Detected (Not Detect); E. coli Not Detected (Not Detect); Enterobacter cloacae complex Not Detected (Not Detect); Enterobacteriaceae species Not Detected (Not Detect); Enterococcus species Not Detected (Not Detect); Haemophilus influenzae Not Detected (Not Detect); KPC (carbapenem-resist gene) Not Detected (Not Detect); Listeria monocytogenes Not Detected (Not Detect); Methicillin-resistant gene Not Detected (Not Detect); Neisseria meningitidis Not Detected (Not Detect); Proteus species Not Detected (Not Detect); Pseudomonas aeruginosa Not Detected (Not Detect); Serratia marcescens Not Detected (Not Detect); Staphylococcus species Not Detected (Not Detect); Streptococcus agalactiae (Gr B Not Detected (Not Detect); Streptococcus pneumonia Not Detected (Not Detect); Streptococcus pyogenes (Gr A) Not Detected (Not Detect); Streptococcus species Not Detected (Not Detect); Vancomycin-rest genes A/B Not Detected (Not Detect)
== END 2020-07-12 14:05 | disposition home or self-care (01) ==
LOC: ED 19:15 → AC 19:28
PROVIDERS: Admitting Provider Nurse Practitioner Family; Emergency Provider Emergency Medicine; Family Provider Family Medicine; PCP Family Medicine; Visit Provider Nurse Practitioner Family
DX: K57.92 Diverticulitis of intestine, part unspecified, without perforation or abscess without bleeding (principal); N18.30 Chronic kidney disease, stage 3 unspecified; C91.90 Lymphoid leukemia, unspecified not having achieved remission; M10.9 Gout, unspecified; I10 Essential (primary) hypertension; F41.9 Anxiety disorder, unspecified; Z20.822 Contact with and (suspected) exposure to COVID-19
CPT/HCPCS: 36415; 74177; 80048; 80053; 81003; 81015; 83605; 83690; 83735; 84145; 85007; 85025; 85610; 85730; 87040; 87150; 87205; 87635; 93005; 96361; 96365; 96366; 96367; 96372; 99225; 99285; C9803; G0378; J0744; J1650

== ENCOUNTER 2021-01-25 14:26 | Emergency (ER) | payer MEDICARE, SELFPAY ==
[2020-07-11 21:31] VITALS: BMI 27.9
[2021-01-25 14:58] VITALS: BP 152/80; PULSE 86; RESP 16; TEMP 37.2; O2SAT 97; BMI 27.2
--- NOTE | 2021-01-25 15:11 | DI.US.S_ITS ---
PROCEDURE: US PERIPH VENOUS LOW EXTREM RT INDICATIONS: RLL swelling, painful, red TECHNIQUE: Real-time imaging, as well as color and pulse Doppler interrogation, were performed of the lower extremity deep veins from the inguinal ligament to the popliteal fossa. COMPARISON: None. FINDINGS: Within the popliteal vein and continuing into the posterior tibial/peroneal trunk, there is occlusive thrombus seen. This continues into 1 posterior tibial vein and both peroneal veins. No more proximal thrombus can be seen. IMPRESSION: Distal deep venous thrombosis can be seen involving the popliteal vein as well as portions of the calf veins. Note: Concordant preliminary findings given by the general supervisor upon the completion of the examination to Dr. Joyce at 4:30 p.m. on January 25, 2021. Dictated by: Christopher Nick M.D. on 01/25/2021 at 15:36 Approved by: Christopher Nick M.D. on 01/25/2021 at 15:38
--- NOTE | 2021-01-25 15:23 | ED.EXTPRO ---
HPI - Extremity Problem <Elliot Donald PA-C - Last Filed: 01/25/21 19:43> General Chief complaint: Extremity Problem,Nontraumatic Stated complaint: calf is hurting swollen t-5 Time Seen by Provider: 01/25/21 14:47 Source: patient and family Mode of arrival: Wheelchair Limitations: no limitations History of Present Illness HPI Narrative: Patient is a 70-year-old male presenting to the emergency department today for evaluation right calf swelling that began 2 days ago. Patient states that he 1st felt an intermittent ?tight knot? in his right calf approximately week and half ago. He said that swelling began 2 days ago with associated chills, and he notes that he experienced increased warmth in the right lower extremity yesterday. Additionally, patient has experienced redness and swelling at the base of the left great toe the last 2 days. Patient notes that he has a history of pseudogout for which he takes allopurinol daily. Patient reports that he completed courses of ciprofloxacin and Flagyl Saturday for a flare of diverticulitis. Patient denies fever, chest pain, shortness of breath, cough, abdominal pain, nausea, vomiting, diarrhea, dysuria, hematuria, numbness, tingling. No other concerns voiced at this time. Related Data Home Medications Medication Instructions Recorded Confirmed ibuprofen 200 mg capsule (Advil 200 mg PO Q DAY PRN #0 05/03/16 07/11/20 Liqui-Gel) aspirin 81 mg tablet,delayed 81 mg PO QDAY #0 11/09/16 07/11/20 release bupropion HCl 300 mg 24 hr tablet, 300 mg PO QPM 08/01/17 07/11/20 extended release (Wellbutrin XL) allopurinol 100 mg tablet 100 mg PO DAILY 04/05/20 07/11/20 Previous Rx's Medication Instructions Recorded ciprofloxacin HCl 500 mg tablet 500 mg PO BID #26 tab 07/12/20 (Cipro) apixaban 5 mg tablet (Eliquis) 5 mg PO BID #60 tab 01/25/21 Allergies Allergy/AdvReac Type Severity Reaction Status Date / Time penicillin G Allergy Severe ANAPHALATIC Verified 01/28/19 15:33 SHOCK codeine Allergy Unknown REALLY Verified 01/28/19 15:33 SICK WITH NAUSEA. Review of Systems <Elliot Donald PA-C - Last Filed: 01/25/21 19:43> Constitutional Constitutional: Denies chills, Denies fatigue, Denies fever(s), Denies frequent falls, Denies lethargy and Denies weakness Eyes Eyes: Denies loss of vision ENT Ears, Nose, Mouth, and Throat: Denies dizziness and Denies neck pain Cardiovascular Cardiovascular: Denies chest pain, Denies irregular heart rhythm, Denies lightheadedness, Denies palpitations, Denies dyspnea, Denies dyspnea on exertion and Denies orthopnea Respiratory Respiratory: Denies cough, Denies dyspnea, Denies dyspnea on exertion and Denies wheezing Gastrointestinal Gastrointestinal: Denies abdominal pain, Denies change in bowel habits, Denies diarrhea, Denies nausea and Denies vomiting Genitourinary Genitourinary: Denies hematuria, Denies flank pain, Denies urinary incontinence and Denies urinary urgency Musculoskeletal Musculoskeletal: Denies back pain, Reports arthralgias (Base of left great toe), Denies muscle weakness, Denies neck pain, Denies numbness, Denies tingling and Reports other (Right calf pain, warmth, swelling) Neurologic Neurologic: Denies behavioral changes, Denies confusion, Denies dizziness, Denies frequent falls, Denies loss of vision, Denies numbness, Denies tingling and Denies weakness Psychiatric Psychiatric: Denies behavioral changes and Denies confusion Endocrine Endocrine: Denies fatigue and Denies palpitations Allergic/Immunologic Allergic/Immunologic: Denies wheezing Patient History <Elliot Donald PA-C - Last Filed: 01/25/21 19:43> Medical History CKD (chronic kidney disease) stage 3, GFR 30-59 ml/min CLL (chronic lymphocytic leukemia) Gout History of kidney stones HTN (hypertension) Surgical History History of appendectomy History of colonoscopy History of extraction of renal calculus History of inguinal hernia repair History of umbilical hernia repair Family History Mother Myocardial infarct Son Myocardial infarct Father Dementia Social History household members: spouse Smoking Status: Never smoker Smoking Status: Never smoker alcohol intake frequency: a few times a month Substance Use Type: does not use Exam <JARRET Menard Last Filed: 01/25/21 19:43> Narrative Exam Narrative: GENERAL: 70 year old patient appears stated age. Well-developed patient, in no acute distress. HEAD: Atraumatic. Normocephalic. EYES: Pupils equal round and reactive. Extraocular motions intact. No scleral icterus. No injection or drainage. ENT: Nose without bleeding, purulent drainage. Throat without erythema, tonsillar hypertrophy or exudate. Airway patent. NECK: Trachea midline. Non tender CARDIOVASCULAR: Regular rate and rhythm without murmurs, gallops, or rubs. RESPIRATORY: Clear to auscultation. Breath sounds equal bilaterally. No wheezes, rales, or rhonchi. GASTROINTESTINAL: Abdomen soft, non-tender, nondistended. EXTREMITIES: Erythema, swelling, and tenderness to palpation at the base the left great toe. Pitting edema noted over the calf right lower extremity without noticeable erythema. Mild tenderness to palpation appreciated along the medial aspect of the right leg. BACK: Nontender without deformity or crepitance. No flank tenderness. NEURO: AOx3. SKIN: No rash or erythema of visible areas Initial Vital Signs Initial Vital Signs: Vital Signs Temperature 99 F 01/25/21 14:58 Pulse Rate 86 01/25/21 14:58 Respiratory Rate 16 01/25/21 14:58 Blood Pressure 152/80 H 01/25/21 14:58 Pulse Oximetry 97 01/25/21 14:58 Cardio Pulses: dorsalis pedis present bilaterally <Glenroy Joyce DO - Last Filed: 01/29/21 07:08> Initial Vital Signs Initial Vital Signs: Vital Signs Temperature 99 F 01/25/21 14:58 Pulse Rate 86 01/25/21 14:58 Respiratory Rate 16 01/25/21 14:58 Blood Pressure 152/80 H 01/25/21 14:58 Pulse Oximetry 97 01/25/21 14:58 Course <JARRET Menard Last Filed: 01/25/21 19:43> Course Course Narrative: Ultrasound of the right lower extremity ordered. Orders Ordered: Discontinued Medications Apixaban (Apixaban 5 Mg Tablet) 5 mg PO NOW ONE Stop: 01/25/21 18:03 Last Admin: 01/25/21 18:20 Dose: 5 mg Documented by: FARHAT Vital Signs Vital signs: Vital Signs - 8 hr 01/25/21 14:58 Temperature 99 F Pulse Rate 86 Respiratory Rate 16 Blood Pressure 152/80 H Pulse Oximetry 97 <Glenroy Joyce DO - Last Filed: 01/29/21 07:08> Orders Ordered: Discontinued Medications Apixaban (Apixaban 5 Mg Tablet) 5 mg PO NOW ONE Stop: 01/25/21 18:03 Last Admin: 01/25/21 18:20 Dose: 5 mg Documented by: FARHAT Vital Signs Vital signs: Vital Signs - 8 hr 01/25/21 14:58 Temperature 99 F Pulse Rate 86 Respiratory Rate 16 Blood Pressure 152/80 H Pulse Oximetry 97 MDM - Extremity (Nontraumatic) <Elliot Donald PA-C - Last Filed: 01/25/21 19:43> Lab Data Result diagrams: 01/25/21 17:19 01/25/21 17:19 Labs: Lab Results 01/25/21 01/25/21 01/25/21 Range/Units 17:19 17:19 17:19 WBC 181.3 H* (4.5-11.0) X10^3/uL RBC 3.40 L (4.5-5.9) X10^6/uL Hgb 11.0 L (13.5-17.5) g/dL Hct 33.4 L (41-53) % MCV 98.3 (80-100) fL MCH 32.5 (26-34) PG MCHC 33.0 (30-36) % RDW 15.0 H (11.6-14.8) % Plt Count 192 (150-400) X10^3/uL Neut % (Auto) Not Reportable Lymph % (Auto) Not Reportable Door % (Auto) Not Reportable Eos % (Auto) Not Reportable Baso % (Auto) Not Reportable Lymph # (Auto) Not Reportable Door # (Auto) Not Reportable Baso # (Auto) Not Reportable Total Counted 100 Seg Neutrophils % 4.0 L (38-70) % Lymphocytes % (Manual) 19.0 L (25-45) % Atypical Lymphs % 75.0 H ( - 0) % Monocytes % (Manual) 2.0 (2-11) % Neutrophils # (Manual) 7252 H (9664-7156) /uL Smudge Cells 4+ H RBC Morphology See below Anisocytosis 1+ H PT 11.9 (10.1-12.7) SECONDS INR 1.1 (0.9-1.3) APTT 38 H (26.4-36.2) SECONDS Sodium 142 (137-145) mmol/L Potassium 4.8 (3.4-5.1) mmol/L Chloride 111 H (98-107) mmol/L Carbon Dioxide 26 (22-32) mmol/L BUN 26 H (9-20) mg/dL Creatinine 1.77 H (0.66-1.25) mg/dL Estimated GFR 38.3 L (>60) mL/min BUN/Creatinine Ratio 14.7 (6-22) Glucose 93 (80-110) mg/dL Calcium 9.0 (8.4-10.2) mg/dL Total Bilirubin 0.3 (0.2-1.3) mg/dL AST 33 (17-59) IU/L ALT 13 (<50) IU/L Alkaline Phosphatase 99 (38-126) U/L Total Protein 6.4 (6.3-8.2) g/dL Albumin 3.7 (3.5-5.0) g/dL Globulin 2.7 (1.7-4.1) g/dL Albumin/Globulin Ratio 1.4 (1.0-2.8) Imaging Data US - DVT: Radiologist's Impression: PROCEDURE:? US PERIPH VENOUS LOW EXTREM RT ? INDICATIONS:? RLL swelling, painful, red ? TECHNIQUE:? Real-time imaging, as well as color and pulse Doppler interrogation, were performed of the lower extremity deep veins from the inguinal ligament to the popliteal fossa.? ? COMPARISON:? None. ? FINDINGS:? Within the popliteal vein and continuing into the posterior tibial/peroneal trunk, there is occlusive thrombus seen.? This continues into 1 posterior tibial vein and both peroneal veins. ? No more proximal thrombus can be seen. ? ? ? IMPRESSION:? Distal deep venous thrombosis can be seen involving the popliteal vein as well as portions of the calf veins. ? Note: Concordant preliminary findings given by the electronic typesetting machine operator upon the completion of the examination to Dr. Joyce at 4:30 p.m. on January 25, 2021. ? ? ? Dictated by: Christopher Nick M.D. on 01/25/2021 at 15:36 ? ? Approved by: Christopher Nick M.D. on 01/25/2021 at 15:38 ? MDM Narrative Medical decision making narrative: Patient is a 70-year-old male presenting to the emergency department today for evaluation right calf swelling that began 2 days ago. To consider DVT versus cellulitis versus CHF versus calf strain. Ultrasound did confirm a distal deep vein thrombosis seen involving the popliteal vein as well as portions of the calf veins. Discussed with the patient the findings of the ultrasound and begin the patient on Eliquis in the emergency department today. Discussed strict return precautions with the patient prior to discharge. At this time he had his feel comfortable being discharged home. <Glenroy Joyce, - Last Filed: 01/29/21 07:08> Lab Data Labs: Lab Results 01/25/21 01/25/21 01/25/21 Range/Units 17:19 17:19 17:19 WBC 181.3 H* (4.5-11.0) X10^3/uL RBC 3.40 L (4.5-5.9) X10^6/uL Hgb 11.0 L (13.5-17.5) g/dL Hct 33.4 L (41-53) % MCV 98.3 (80-100) fL MCH 32.5 (26-34) PG MCHC 33.0 (30-36) % RDW 15.0 H (11.6-14.8) % Plt Count 192 (150-400) X10^3/uL Neut % (Auto) Not Reportable Lymph % (Auto) Not Reportable Door % (Auto) Not Reportable Eos % (Auto) Not Reportable Baso % (Auto) Not Reportable Lymph # (Auto) Not Reportable Door # (Auto) Not Reportable Baso # (Auto) Not Reportable Total Counted 100 Seg Neutrophils % 4.0 L (38-70) % Lymphocytes % (Manual) 19.0 L (25-45) % Atypical Lymphs % 75.0 H ( - 0) % Monocytes % (Manual) 2.0 (2-11) % Neutrophils # (Manual) 7252 H (6732-9113) /uL Smudge Cells 4+ H RBC Morphology See below Anisocytosis 1+ H PT 11.9 (10.1-12.7) SECONDS INR 1.1 (0.9-1.3) APTT 38 H (26.4-36.2) SECONDS Sodium 142 (137-145) mmol/L Potassium 4.8 (3.4-5.1) mmol/L Chloride 111 H (98-107) mmol/L Carbon Dioxide 26 (22-32) mmol/L BUN 26 H (9-20) mg/dL Creatinine 1.77 H (0.66-1.25) mg/dL Estimated GFR 38.3 L (>60) mL/min BUN/Creatinine Ratio 14.7 (6-22) Glucose 93 (80-110) mg/dL Calcium 9.0 (8.4-10.2) mg/dL Total Bilirubin 0.3 (0.2-1.3) mg/dL AST 33 (17-59) IU/L ALT 13 (<50) IU/L Alkaline Phosphatase 99 (38-126) U/L Total Protein 6.4 (6.3-8.2) g/dL Albumin 3.7 (3.5-5.0) g/dL Globulin 2.7 (1.7-4.1) g/dL Albumin/Globulin Ratio 1.4 (1.0-2.8) Discharge Plan Departure Patient Disposition: Home Clinical Impression: Deep vein thrombophlebitis of right leg, Chronic lymphocytic leukemia Instructions: Chronic Lymphocytic Leukemia, DI for Deep Vein Thrombosis Activity Restrictions/Additional Instructions: *You have been diagnosed with deep vein thrombosis of right lower extremity, chronic lymphocytic leukemia *What to do: *Please continue to take your regular medications as directed. [X] New medication prescriptions sent to your pharmacy: [facility] N[facility] [ ] New medication written as a paper prescription [ ] No new medications given *Please follow up with your primary care provider in the next 24-48 hours call for an appointment. Let them know you were seen in the Emergency Department and that we ask that you be seen in follow up. We will electronically transmit a record of today's note if your PCP is in our system. Have repeat labs drawn. *If you do not have a primary care provider please contact the [facility] Resource line at [phone]. They will ask some questions about your medical history and help get you set up with a doctor in the community. *Return to Emergency Department if you should have any new, worsening or concerning symptoms, such as fever greater than 101 F, shaking chills, shortness of breath, pain with deep inspiration, chest pain, persistent vomiting or other bothersome symptoms. Prescriptions: New Eliquis 5 mg tablet 5 mg PO BID Qty: 60 0RF No Action ibuprofen [Advil Liqui-Gel] 200 MG capsule 200 mg PO Q DAY PRN (Reason: Pain (Scale Score 1-3)) Qty: 0 0RF aspirin 81 MG tablet,delayed release (DR/EC) 81 mg PO QDAY Qty: 0 0RF bupropion HCl [Wellbutrin XL] 300 mg Tablet Extended Release 24 Hr 300 mg PO QPM 0RF allopurinol 100 mg Tablet 100 mg PO DAILY 0RF ciprofloxacin HCl [Cipro] 500 mg tablet 500 mg PO BID Qty: 26 0RF Referrals: Yulissa Woods DO [Primary Care Provider] - <Glenroy Joyce DO - Last Filed: 01/29/21 07:08> Cosign ED Attending Cosignature Attestation: Dr Joyce Co-Sign Statement: I was available for consultation during this patient's emergency department visit. This chart is signed by myself for administrative purposes only. I did not have direct contact with this patient during this visit. They were seen independently by the APC.
--- NOTE | 2021-01-25 17:31 | PC.NURSE ---
pt refused iv access.
[2021-01-25 17:36] LABS: Hematocrit 33.4 % (41-53); INR 1.1 (0.9-1.3); Mean Corpuscular Hemoglobin 32.5 PG (26-34); Mean Corpuscular Volume 98.3 fL (80-100); Platelet Count 192 X10^3/uL (150-400); Prothrombin Time 11.9 SECONDS (10.1-12.7)
[2021-01-25 17:38] LABS: PTT Partial Thromboplastin Tim 38 SECONDS (26.4-36.2)
[2021-01-25 17:39] LABS: Add Manual Diff / Slide Review YES
[2021-01-25 17:40] LABS: Alanine Aminotransferase 13 IU/L (<50); Albumin 3.7 g/dL (3.5-5.0); Albumin Globulin Ratio 1.4 (1.0-2.8); Alkaline Phosphatase 99 U/L (38-126); Aspartate Aminotransferase 33 IU/L (17-59); BUN Creatinine Ratio 14.7 (6-22); Bilirubin Total 0.3 mg/dL (0.2-1.3); Blood Urea Nitrogen 26 mg/dL (9-20); Carbon Dioxide 26 mmol/L (22-32); Chloride 111 mmol/L (98-107); Estimated Glomerular Filt Rate 38.3 mL/min (>60); Globulin 2.7 g/dL (1.7-4.1); Glucose 93 mg/dL (80-110); HEMOLYSIS < 15 (0-50); Potassium 4.8 mmol/L (3.4-5.1); Sodium 142 mmol/L (137-145); Total Protein 6.4 g/dL (6.3-8.2); White Blood Cell Count 181.3 X10^3/uL (4.5-11.0)
[2021-01-25 17:56] LABS: Neutrophils Absolute Manual 7252 /uL (3000-5900); Total Cells Counted 100
[2021-01-25 17:57] LABS: Anisocytosis 1+; Smudge Cells 4+
[2021-01-25] MEDS: APIXABAN 5 MG TABLET PO (18:20)
== END 2021-01-25 18:28 | disposition home or self-care (01) ==
PROVIDERS: Emergency Provider Physician Assistant; Family Provider Family Medicine; PCP Family Medicine
DX: I82.431 Acute embolism and thrombosis of right popliteal vein (principal); C91.10 Chronic lymphocytic leukemia of B-cell type not having achieved remission
CPT/HCPCS: 36415; 80053; 85007; 85025; 85610; 85730; 93971; 99283; 99284

== ENCOUNTER → 2021-05-15 15:30 | Outpatient (CLI) | payer MEDICARE, SELFPAY ==
[2020-07-11 21:31] VITALS: BMI 27.9
[2021-05-15 17:33] LABS: COVID19 -Nasal RAPID Negative (Negative)
== END ==
PROVIDERS: Family Provider Family Medicine; PCP Family Medicine; Visit Provider Surgery
DX: Z20.822 Contact with and (suspected) exposure to COVID-19 (principal)
CPT/HCPCS: 87635

== ENCOUNTER 2021-05-16 06:39 | Day surgery (SDC) | payer MEDICARE, SELFPAY ==
[2020-07-11 21:31] VITALS: BMI 27.9
[2021-05-16] VITALS (9 sets, daily range): BP systolic 124–160; BP diastolic 76–101; PULSE 61–70; RESP 11–20; TEMP 36.2–36.8; O2SAT 92–97; BMI 27.2
--- NOTE | 2021-05-16 | PATH_ITS ---
[facility] Accession Number: [id number] . 01 Material submitted: . rectum - RECTAL BIOPSY . 02 Diagnosis: Rectal Biopsy: Mildly hyperplastic rectal mucosa with mild active inflammation. Negative for dysplasia. Please see comment. Extravasated red cells within the lamina propria, suggestive of procedural effect. MRV 05/18/2021 1506 Local . 02 Comment: There is a scattering of small, mature lymphocytes within the colorectal wall; this patient's previous history of CLL/SLL is noted. . . . . 02 Electronically signed: . Maryann Ross MD, Pathologist NPI- [id number] . 01 Gross description: . RECTAL BIOPSY: Received in formalin is 1 fragment(s) of rivera, soft tissue measuring 0.4 x 0.3 x 0.3 cm submitted entirely in 1 cassette(s) /SONALI 05/17/20212010 Local . 02 Pathologist provided ICD-10: Z87.19 . 02 CPT . 355231 Specimen Comment: A courtesy copy of this report has been sent to [phone] Performed at: 01 [facility] Cyt[facility] [address], [place], [place] [id number] MD Luiz Restrepo MD Phone: [phone] Performed at: 02 [facility] [address] [place], [place] [id number] MD Delmi Isaac MD Phone: [phone]
[2021-05-16] MEDS: LACTATED RINGERS 1,000 ML 200 ML IV (07:00)
[2021-05-16] MEDS: MIDAZOLAM 5 MG/5 ML VIAL IV (07:38)
[2021-05-16] MEDS: fentaNYL 250 MCG/5 ML INJ IV (07:39)
--- NOTE | 2021-05-16 07:42 | PM.HP.1 ---
History of Present Illness History of Present Illness Date Patient Seen: 05/16/21 Time Patient Seen: 07:42 Chief complaint: SDC Narrative: The patient presents for colorectal screening secondary to a recent history diverticulitis. No personal or family history of colon cancer. On further history denies any recent gastrointestinal symptoms. Patient History Medical History CKD (chronic kidney disease) stage 3, GFR 30-59 ml/min CLL (chronic lymphocytic leukemia) Gout History of kidney stones HTN (hypertension) Surgical History History of appendectomy History of colonoscopy History of extraction of renal calculus History of inguinal hernia repair History of umbilical hernia repair Family & Social History Family History Mother Myocardial infarct Son Myocardial infarct Father Dementia Social History: household members spouse Tobacco & Substance use: Smoking Status Never smoker alcohol intake frequency a few times a month Substance Use Type does not use Meds Home Medications and Allergies Home Medications Medication Instructions Recorded Confirmed Type ibuprofen 200 mg capsule (Advil 200 mg PO Q DAY PRN #0 05/03/16 05/16/21 History Liqui-Gel) bupropion HCl 300 mg 24 hr tablet, 300 mg PO QPM 08/01/17 05/16/21 History extended release (Wellbutrin XL) allopurinol 100 mg tablet 100 mg PO DAILY 04/05/20 05/16/21 History sodium sul 1.479 gram-potas ch See Rx Instructions PO PER PKG DIR 03/15/21 05/16/21 Rx 0.188 gram-magnes sul 0.225 gram #24 tab tablet (Sutab) apixaban 5 mg tablet (Eliquis) 5 mg PO DAILY 05/16/21 05/16/21 History Allergies Allergy/AdvReac Type Severity Reaction Status Date / Time penicillin G Allergy Severe ANAPHALATIC Verified 02/15/21 15:37 SHOCK codeine Allergy Unknown REALLY Verified 02/15/21 15:37 SICK WITH NAUSEA. Exam Vital Signs (past 8 hours): - 05/16/21 07:20 Temperature 98.2 F Pulse Rate 70 Respiratory Rate 18 Blood Pressure 140/93 H Pulse Oximetry 97 Oxygen Delivery Method Room Air Narrative Exam Narrative: GENERAL: Obese male in no apparent distress HEENT: No scleral icterus CV: Regular rate, no peripheral edema LUNGS: No increased work of breathing. Patient speaks in full sentences without oxygen support. ABDOMEN: Soft, non-tender, non-distended NEURO: Nonfocal, normal strength throughout SKIN: Warm and dry Assessment & Plan Assessment & Plan narrative: The patient requires colorectal screening and colonoscopy is recommended secondary to recent diverticulitis. Technical details were discussed. Risks, benefits, alternatives explained. Risks including but not limited to myocardial infarction, aspiration, bleeding, pain, missed lesion, incomplete examination, need for further radiographic studies, colonic perforation, and need for major abdominal surgery were discussed. All questions were answered to their satisfaction, and they are in agreement with this plan. Time Spent With Patient Critical Care time: I spent a total of [] minutes of critical care time on this patient's care today; this time is exclusive of procedural time.
--- NOTE | 2021-05-16 08:04 | PM.OP.COLON ---
Operative Date/Time/Diagnoses Date of procedure: 05/16/21 Time of procedure: 08:04 Pre-op diagnosis: History of diverticulitis Post-op diagnosis: same Procedure & Clinicians Study performed: Colonoscopy Same procedure as scheduled: Yes Indications: Recent diverticulitis Surgeon: Burak Arambula Procedure Notes Procedure in detail: Medications: Conscious sedation using 5mg IV midazolam and 150mcg IV of fentanyl The history and physical was performed/updated and the patient is ASA class is 2. The procedure was discussed in detail with the patient. Potential risks complications including infection, bleeding, missed diagnosis, perforation, need for surgery, and were explained. Their questions were answered and informed consent was obtained. Patient was brought to the procedure room and placed standard monitoring equipment. The patient's vital signs were monitored continuously throughout the entire procedure. Prior to starting time-out was performed. The patient was placed in the left lateral recumbent position. Procedural sedation was administered. Examination began with a thorough inspection of the perianal area there was no evidence of fissures, fistulae, external hemorrhoids or cutaneous malignancy. The colonoscopy scope was then placed into the anal canal and was advanced to the cecum, which was identified by the ileocecal valve, the appendiceal orifice and the confluence of the taenia. The scope was then slowly withdrawn examining colon thoroughly in all directions, irrigating it of any residual stool. FINDINGS 1. No masses or polyps 2. Proctitis without ulceration. Biopsy performed with Jumbo forceps 3. Grade 2 internal hemorrhoids 4. Sigmoid diverticulosis The patient tolerated the procedure well. They will be discharged once criteria are met. The prep was of good/excellent quality. The withdrawl time was 6 minutes. The sedation time was 16 minutes. Specimen(s): other (Rectal biopsy) Complications: none Impression: Diverticulosis Post-procedure Recommendations: Colonoscopy in 10 years Disposition: same day surgery
--- NOTE | 2021-05-16 08:48 | SUR.PHASEII ---
Addendum entered by Rea Mejias R.N. 05/16/21 08:52: blood sugar 108; notified of status and call will her when patient is ready to be discharged. V/U. Patient states that the nausea is better lying down. Original Note: Patient diaphoretic and nauseated after sitting up and getting dressed; denies any pain at this time. VSS. Placed patient back in stretcher supine; cool cloth given; Blood sugat 1
== END 2021-05-16 09:20 | disposition home or self-care (01) ==
PROVIDERS: Family Provider Family Medicine; PCP Family Medicine; Referring Provider Surgery; Visit Provider Surgery
PROC: 0DJD8ZZ Inspection of Lower Intestinal Tract, Via Natural or Artificial Opening Endoscopic (ICD-10-PCS; CPT 45378; principal; 2021-05-16 07:45)
DX: K62.89 Other specified diseases of anus and rectum (principal); Z87.19 Personal history of other diseases of the digestive system; I12.9 Hypertensive chronic kidney disease with stage 1 through stage 4 chronic kidney disease, or unspecified chronic kidney disease; N18.30 Chronic kidney disease, stage 3 unspecified; K64.1 Second degree hemorrhoids; K57.30 Diverticulosis of large intestine without perforation or abscess without bleeding
CPT/HCPCS: 45380; 99152; J2250; J3010

== ENCOUNTER 2022-04-18 10:05 | Emergency (ER) | payer MEDICARE, SELFPAY ==
[2020-07-11 21:31] VITALS: BMI 27.9
[2022-04-18 10:08] VITALS: BP 165/98; PULSE 88; RESP 16; TEMP 36.7; O2SAT 98; BMI 29.4
[2022-04-18 10:10] VITALS: BP 165/98; PULSE 83; O2SAT 97
[2022-04-18 10:23] LABS: Hematocrit 40.4 % (41-53); Mean Corpuscular HGB Conc 32.2 % (30-36); Mean Corpuscular Hemoglobin 32.1 PG (26-34); Mean Corpuscular Volume 99.7 fL (80-100); Platelet Count 216 X10^3/uL (150-400); Red Blood Cell Count 4.05 X10^6/uL (4.5-5.9); Red Cell Distribution Width 15.1 % (11.6-14.8)
[2022-04-18 10:24] LABS: Add Manual Diff / Slide Review YES; White Blood Cell Count 170.5 X10^3/uL (4.5-11.0)
--- NOTE | 2022-04-18 10:26 | DI.CT.S_ITS ---
PROCEDURE: CT ABDOMEN PELVIS W CON INDICATIONS: eval diverticulitis TECHNIQUE: After the administration of intravenous contrast, axial sections acquired from the lung bases to the pubic symphysis. Coronal and sagittal reformats were performed. For radiation dose reduction, the following was used: automated exposure control, adjustment of mA and/or kV according to patient size. COMPARISON: [facility], CT, CT ABDOMEN PELVIS W CON, 07/11/2020, 18:10. FINDINGS: Image quality: Excellent. Lung bases: Unremarkable. Heart: No significant findings. ABDOMEN: Liver: Unremarkable. Gallbladder: Unremarkable. Biliary ducts: Unremarkable. Pancreas: Unremarkable. Spleen: Continued moderate to marked splenomegaly. The craniocaudal dimension of the spleen is currently 18.4 cm. Previously, it measured approximately 17.3 cm. . Adrenal Glands: Unremarkable. Kidneys and Ureters: Unremarkable. Stomach and Bowel: There is acute diverticulitis involving the proximal sigmoid with inflammatory change in the adjacent fat. No free air or abscess cavity. Peritoneum: No abnormal intraperitoneal fluid. No free air. Ventral Wall: No hernias. Abdominal Nodes: Multiple enlarged lymph nodes are again noted. The largest single lymph node is at the junction between the left common femoral and left external iliac, not significantly changed in size, measuring approximately 3.2 x 2.6 cm. There are innumerable prominent lymph nodes in the mesenteric fat, which are much greater in number and more prominent than typically seen. There is shotty periaortic adenopathy. Prominent peripancreatic and periportal adenopathy, greater than reactive adenopathy is again noted. Findings are consistent with a chronic lymphoproliferative disorder of some type. Vessels: Aorta and inferior vena cava are normal in size. PELVIS: Pelvic Organs: Unremarkable. Bladder: Unremarkable. Pelvic Nodes: No enlarged lymph nodes. Miscellaneous: No hernias are seen. Bones: Interval development of an L4 compression fracture. It has a chronic appearance. It is moderate. No lytic or blastic bony lesions identified. IMPRESSION: 1. Acute non complicated diverticulitis of the proximal sigmoid. 2. Splenomegaly and extensive adenopathy as described above. Findings are highly suspicious for some sort of chronic lymphoma or lymphoproliferative disorder. 3. Interval development of a moderate L4 compression fracture, now old period in the setting of splenomegaly and lymphadenopathy, cannot exclude a pathologic compression. Consider lumbar spine MRI with without contrast on a nonemergent basis. Dictated by: Pasha Glaser M.D. on 04/18/2022 at 10:43 Approved by: Pasha Glaser M.D. on 04/18/2022 at 10:52
[2022-04-18 10:27] LABS: RBC Morphology Normal Morphology
[2022-04-18 10:28] LABS: Smudge Cells 2+
[2022-04-18 10:29] LABS: Neutrophils Absolute Manual 6820 /uL (3000-5900); Total Cells Counted 100
[2022-04-18 10:33] LABS: Alanine Aminotransferase 18 IU/L (<50); Albumin 4.2 g/dL (3.5-5.0); Albumin Globulin Ratio 1.5 (1.0-2.8); Alkaline Phosphatase 141 U/L (38-126); Aspartate Aminotransferase 30 IU/L (17-59); BUN Creatinine Ratio 12.2 (6-22); Bilirubin Total 0.4 mg/dL (0.2-1.3); Blood Urea Nitrogen 23 mg/dL (9-20); Calcium 8.7 mg/dL (8.4-10.2); Carbon Dioxide 25 mmol/L (22-32); Chloride 106 mmol/L (98-107); Estimated Glomerular Filt Rate 38 mL/min (>60); Globulin 2.8 g/dL (1.7-4.1); Glucose 70 mg/dL (80-110); HEMOLYSIS 17 (0-50); Lipase 72 U/L (23-300); Potassium 4.9 mmol/L (3.4-5.1); Sodium 143 mmol/L (137-145)
[2022-04-18 10:36] VITALS: PULSE 88
[2022-04-18 10:37] VITALS: BP 163/96; PULSE 78; O2SAT 98
[2022-04-18 11:00] VITALS: BP 148/86; PULSE 72; O2SAT 96
[2022-04-18 11:20] LABS: Bacteria Urine None Seen; Hyaline Casts Urine 5-10/LPF; RBC Urine None Seen (0-5/HPF); Squamous Epithelial Cell Urine 1-5 /HPF (0-5/HPF); WBC Urine None Seen (0-5/HPF)
[2022-04-18 11:21] LABS: Culture Indicated Urine Cult Not Indicated; Mucus Urine 2+ (Negative)
[2022-04-18] MEDS: metroNIDAZOLE 500 MG TABLET 250 MG PO (11:24)
[2022-04-18] MEDS: CIPROFLOXACIN 250 MG TABLET 500 MG PO (11:24)
--- NOTE | 2022-04-18 22:02 | ED_ITS ---
HPI - Abdominal Pain General Chief Complaint: Abdominal Pain Stated Complaint: lower abd pain x 3 days Time Seen by Provider: 04/18/22 10:14 Source: patient Mode of arrival: Ambulatory History of Present Illness HPI narrative: 71-year-old male presenting with 3 days of left lower quadrant abdominal pain worsening over the last 24 hours. Patient does have a history of prior diverticulitis. Concern for recurrence. No measured fevers. No changes in bowel movements. Patient continues to be ambulatory without difficulty. Related Data Home Medications Medication Instructions Recorded Confirmed ibuprofen 200 mg capsule (Advil 200 mg PO Q DAY PRN Pain (Scale 05/03/16 05/24/21 Liqui-Gel) Score 1-3) ##0 bupropion HCl 300 mg 24 hr tablet, 300 mg PO QPM 08/01/17 05/24/21 extended release (Wellbutrin XL) allopurinol 100 mg tablet 100 mg PO DAILY 04/05/20 05/24/21 apixaban 5 mg tablet (Eliquis) 5 mg PO DAILY 05/16/21 05/24/21 Previous Rx's Medication Instructions Recorded sodium sul 1.479 gram-potas ch See Rx Instructions PO PER PKG DIR 03/15/21 0.188 gram-magnes sul 0.225 gram #24 tabs tablet (Sutab) ciprofloxacin HCl 500 mg tablet 500 mg PO BID #14 tabs 04/18/22 ciprofloxacin HCl 500 mg tablet 500 mg PO Q12H #14 tabs 04/18/22 metronidazole 500 mg tablet 500 mg PO Q12H #14 tabs 04/18/22 metronidazole 500 mg tablet 500 mg PO Q12H #14 tabs 04/18/22 Allergies Allergy/AdvReac Type Severity Reaction Status Date / Time penicillin G Allergy Severe ANAPHALATIC Verified 04/18/22 10:12 SHOCK codeine Allergy Unknown REALLY Verified 04/18/22 10:12 SICK WITH NAUSEA. Patient History Medical History CKD (chronic kidney disease) stage 3, GFR 30-59 ml/min CLL (chronic lymphocytic leukemia) Gout History of kidney stones HTN (hypertension) Surgical History History of appendectomy History of colonoscopy History of extraction of renal calculus History of inguinal hernia repair History of umbilical hernia repair Family History Mother Myocardial infarct Son Myocardial infarct Father Dementia Social History household members: spouse Smoking Status: Never smoker Smoking Status: Never smoker alcohol intake frequency: holidays/special occasions only Substance Use Type: does not use Exam Narrative Exam Narrative: Vitals reviewed. Nursing note reviewed Constitutional: interactive HENT: Moist mucous membranes EYES: No scleral icterus NECK: no masses CV: Well perfused peripherally, no cyanosis present PULM: Unlabored respirations, symmetric chest rise ABD: Non-distended, tender over the left lower quadrant MS: No gross deformities, no asymmetric edema noted SKIN: Warm and dry. PSYCH: Appropriate affect NEURO: Follows simple commands, moves extremities, interactive with exam Initial Vital Signs Initial Vital Signs: Vital Signs Temperature 98.1 F 04/18/22 10:08 Pulse Rate 88 04/18/22 10:08 Respiratory Rate 16 04/18/22 10:08 Blood Pressure 165/98 H 04/18/22 10:08 Pulse Oximetry 98 04/18/22 10:08 Oxygen Delivery Method 04/18/22 10:08 Course Orders Ordered: Discontinued Medications Ciprofloxacin (Ciprofloxacin 250 Mg Tablet) 500 mg PO NOW ONE Stop: 04/18/22 11:12 Last Admin: 04/18/22 11:24 Dose: 500 mg Documented By: JOAN Metronidazole (Metronidazole 500 Mg Tablet) 250 mg PO NOW ONE Stop: 04/18/22 11:12 Last Admin: 04/18/22 11:24 Dose: 250 mg Documented By: JOAN MDM - Abdominal Pain Lab Data 04/18/22 10:15 04/18/22 10:15 Labs: Lab Results 04/18/22 04/18/22 04/18/22 Range/Units 10:15 10:15 10:37 WBC 170.5 H* (4.5-11.0) X10^3/uL RBC 4.05 L (4.5-5.9) X10^6/uL Hgb 13.0 L (13.5-17.5) g/dL Hct 40.4 L (41-53) % MCV 99.7 (80-100) fL MCH 32.1 (26-34) PG MCHC 32.2 (30-36) % RDW 15.1 H (11.6-14.8) % Plt Count 216 (150-400) X10^3/uL Neut % (Auto) Not Reportable Lymph % (Auto) Not Reportable [place] % (Auto) Not Reportable Eos % (Auto) Not Reportable Baso % (Auto) Not Reportable Lymph # (Auto) Not Reportable [place] # (Auto) Not Reportable Baso # (Auto) Not Reportable Total Counted 100 Seg Neutrophils % 3.0 L (38-70) % Band Neutrophils % 1.0 L (3-7) % Lymphocytes % (Manual) 50.0 H (25-45) % Atypical Lymphs % 46.0 H ( - 0) % Neutrophils # (Manual) 6820 H (1296-5870) /uL [place] Cells 2+ H RBC Morphology Normal morphology Sodium 143 (137-145) mmol/L Potassium 4.9 (3.4-5.1) mmol/L Chloride 106 (98-107) mmol/L Carbon Dioxide 25 (22-32) mmol/L BUN 23 H (9-20) mg/dL Creatinine 1.89 H (0.66-1.25) mg/dL Estimated GFR 38 L (>60) mL/min BUN/Creatinine Ratio 12.2 (6-22) Glucose 70 L (80-110) mg/dL Calcium 8.7 (8.4-10.2) mg/dL Total Bilirubin 0.4 (0.2-1.3) mg/dL AST 30 (17-59) IU/L ALT 18 (<50) IU/L Alkaline Phosphatase 141 H (38-126) U/L Total Protein 7.0 (6.3-8.2) g/dL Albumin 4.2 (3.5-5.0) g/dL Globulin 2.8 (1.7-4.1) g/dL Albumin/Globulin Ratio 1.5 (1.0-2.8) Lipase 72 (23-300) U/L Urine RBC None seen (0-5/HPF) Urine WBC None seen (0-5/HPF) Ur Squamous Epith Cells 1-5 /hpf (0-5/HPF) Urine Bacteria None seen (None) Hyaline Casts 5-10/lpf (None) Urine Mucus 2+ H (Negative) Ur Culture Indicated? Cult not indicated Point of care testing: Urine Dip Bedside Urine Glucose Negative Bedside Urine Bilirubin - Negative Bedside Urine Ketone - Negative Urine Specific [place] 1.025 Bedside Urine Occult Blood - Negative Bedside Urine pH 6.0 Bedside Urine Protein + 30 Bedside Urine Urobilinogen - Negative Bedside Urine Nitrite - Negative Bedside Urine Leukocytes - Negative Esterase MDM Narrative Medical decision making narrative: 71-year-old male presenting with left lower quadrant abdominal pain. On presentation, vital signs notable for hypertension otherwise reassuring. Physical exam notable for interactive 71-year-old male who is in no acute distress, reassuring cardiopulmonary exam, focal left lower quadrant abdominal pain. Initial concern for recurrent diverticulitis, complicated diverticulitis with abscess, colitis, vascular pathology, hernia, obstruction. Broad screening labs obtained and notable for leukocytosis to 170,000, this is consistent with the patient's CLL, however, this is elevated above his recent baseline. CMP reassuring as above. Discussed findings with the patient including plan for close outpatient follow up with the patient's primary oncologist. CT imaging obtained and notable for acute uncomplicated diverticulitis as above. Discussed findings with the patient. Patient was administered antibiotics in the emergency department and prescribed antibiotics with outpatient setting. Return precautions were discussed. Discharge Plan Departure Patient Disposition: Home Clinical Impression: Diverticulitis Instructions: DI for Diverticulitis Prescriptions: New ciprofloxacin HCl 500 mg tablet 500 mg PO BID Qty: 14 0RF metronidazole 500 mg tablet 500 mg PO Q12H Qty: 14 0RF ciprofloxacin HCl 500 mg tablet 500 mg PO Q12H Qty: 14 0RF metronidazole 500 mg tablet 500 mg PO Q12H Qty: 14 0RF No Action ibuprofen [Advil Liqui-Gel] 200 MG capsule 200 mg PO Q DAY PRN (Reason: Pain (Scale Score 1-3)) Qty: 0 Sutab 1.479-0.188- 0.225 gram tablet See Rx Instructions PO PER PKG DIR Qty: 24 0RF Rx Instructions: Per Dr. Arambula's instructions bupropion HCl [Wellbutrin XL] 300 mg Tablet Extended Release 24 Hr 300 mg PO QPM allopurinol 100 mg Tablet 100 mg PO DAILY Eliquis 5 mg tablet 5 mg PO DAILY Label Comments: take 1 tablet by mouth twice a day Referrals: Yulissa Woods DO [Primary Care Provider] - Stand Alone Forms: Patient Portal/API
== END 2022-04-18 11:37 | disposition home or self-care (01) ==
PROVIDERS: Emergency Provider Emergency Medicine; Family Provider Family Medicine; PCP Family Medicine
DX: K57.92 Diverticulitis of intestine, part unspecified, without perforation or abscess without bleeding (principal); R10.32 Left lower quadrant pain; Z79.01 Long term (current) use of anticoagulants; Z79.899 Other long term (current) drug therapy; C91.10 Chronic lymphocytic leukemia of B-cell type not having achieved remission
CPT/HCPCS: 36415; 74177; 80053; 81003; 81015; 83615; 83690; 85007; 85025; 93005; 93010; 99284

== ENCOUNTER 2022-06-04 16:03 | Emergency (ER) | payer MEDICARE, SELFPAY ==
[2020-07-11 21:31] VITALS: BMI 27.9
[2022-06-04] VITALS (9 sets, daily range): BP systolic 145–161; BP diastolic 78–82; PULSE 50–84; RESP 16–29; TEMP 37.1; O2SAT 95–99; BMI 28.7
--- NOTE | 2022-06-04 16:09 | DI.RAD.S_ITS ---
PROCEDURE: XR CHEST 1V INDICATIONS: chest pain TECHNIQUE: One view of the chest was acquired. COMPARISON: [facility], , CHEST 1 VIEW, 01/24/2017, 10:45. FINDINGS: Surgical changes and devices: None. Lungs and pleura: Patchy left basilar airspace opacity. Mediastinum: Mediastinal contours appear normal. Heart size is normal. Bones and chest wall: No suspicious bony lesions. Overlying soft tissues appear unremarkable. IMPRESSION: Patchy left basilar airspace opacity, either atelectasis or infection. Dictated by: Andres Fay M.D. on 06/04/2022 at 16:47 Approved by: Andres Fay M.D. on 06/04/2022 at 16:48
[2022-06-04] MEDS: ASPIRIN 81 MG CHEW TAB 324 MG PO (17:08)
[2022-06-04 17:09] LABS: Hematocrit 35.3 % (41-53); Hemoglobin 11.8 g/dL (13.5-17.5); Mean Corpuscular HGB Conc 33.4 % (30-36); Mean Corpuscular Hemoglobin 32.7 PG (26-34); Mean Corpuscular Volume 97.9 fL (80-100); Platelet Count 203 X10^3/uL (150-400); Red Blood Cell Count 3.61 X10^6/uL (4.5-5.9); Red Cell Distribution Width 14.9 % (11.6-14.8)
[2022-06-04 17:14] LABS: Add Manual Diff / Slide Review YES; White Blood Cell Count 273.7 X10^3/uL (4.5-11.0)
[2022-06-04 17:26] LABS: Prothrombin Time 11.7 SECONDS (10.1-12.7)
[2022-06-04 17:28] LABS: Alanine Aminotransferase 21 IU/L (<50); Albumin Globulin Ratio 1.6 (1.0-2.8); Alkaline Phosphatase 95 U/L (38-126); Aspartate Aminotransferase 58 IU/L (17-59); BUN Creatinine Ratio 20.2 (6-22); Bilirubin Total 0.3 mg/dL (0.2-1.3); Blood Urea Nitrogen 35 mg/dL (9-20); Carbon Dioxide 19 mmol/L (22-32); Chloride 114 mmol/L (98-107); Creatine Kinase 53 U/L (55-170); Estimated Glomerular Filt Rate 42 mL/min (>60); Globulin 2.5 g/dL (1.7-4.1); Glucose 93 mg/dL (80-110); HEMOLYSIS 25 (0-50); Lipase 85 U/L (23-300); Magnesium 2.2 mg/dL (1.6-2.3); Sodium 138 mmol/L (137-145); Total Protein 6.5 g/dL (6.3-8.2)
[2022-06-04 17:29] LABS: PTT Partial Thromboplastin Tim 35 SECONDS (26-36)
[2022-06-04 17:30] LABS: COVID19 -Nasal RAPID Negative (Negative)
[2022-06-04 17:32] LABS: Potassium 5.6 mmol/L (3.4-5.1)
[2022-06-04 17:40] LABS: Troponin I < 0.012 ng/mL (0.01-0.034)
[2022-06-04 17:46] LABS: Neutrophils Absolute Manual 8211 /uL (3000-5900); RBC Morphology Normal Morphology; Total Cells Counted 100
--- NOTE | 2022-06-04 18:18 | DI.CT.S_ITS ---
PROCEDURE: CT ANGIO CHEST PE PROTOCOL INDICATIONS: hx of CLL and DVT with chest pain TECHNIQUE: After the administration of intravenous contrast, 2 mm thick sections acquired from the pulmonary apices to the posterior costophrenic angles. 3-dimensional maximum intensity projection (MIP) coronal and sagittal reformats were then acquired through the thorax. For radiation dose reduction, the following was used: automated exposure control, adjustment of mA and/or kV according to patient size. COMPARISON: None. FINDINGS: Image quality: Excellent. Pulmonary arteries: Pulmonary arteries are normal in size, and demonstrate no intraluminal filling defects to suggest central pulmonary embolism. Lungs and pleura: Minor atelectatic changes are present at both lung bases. Lungs are otherwise clear. There is a prominent juxta fissural lymph node associated with the right minor fissure. No pleural effusions or pneumothorax. Central and peripheral airways are patent. Mediastinum: Heart size is normal, without pericardial effusion. Mild bilateral hilar adenopathy. Moderate mediastinal adenopathy. Thoracic aorta is normal in caliber and enhancement. Esophagus is normal in caliber, without hiatal hernia. Bones and chest wall: Prominent bilateral axillary adenopathy, left more so than right. There are few bilateral supraclavicular lymph nodes. The thyroid gland is normal. Chest wall and osseous structures are without suspicious bone lesion. There is a healed transverse sternal fracture. Abdomen: The visible upper abdomen demonstrates mildly prominent epigastric retroperitoneal and shan hepatis lymph nodes. Spleen is partially imaged and probably enlarged. IMPRESSION: 1. No pulmonary embolus. 2. No acute cardiopulmonary disease. 3. Diffuse adenopathy consistent with known CLL, most evident in the axillary regions. Splenomegaly is also consistent with this history. Dictated by: Deanna Zaidi M.D. on 06/04/2022 at 20:24 Approved by: Deanna Zaidi M.D. on 06/04/2022 at 20:38
--- NOTE | 2022-06-04 18:18 | ED.CHESTPAIN ---
HPI - Chest Pain General Chief Complaint: Chest Pain Stated Complaint: CHEST PAIN Time Seen by Provider: 06/04/22 16:45 Source: patient and family Mode of arrival: Wheelchair Limitations: no limitations History of Present Illness HPI narrative: Patient is a 71-year-old male. Does have a history of CLL. Is currently being followed by Oncology for this. Does have a history of a left lower extremity DVT. No history of pulmonary embolisms. Is not on anticoagulation. No cardiac history. Did have a stress test many years ago but nothing recent. Is here for evaluation of left-sided chest discomfort. He states that it started earlier this morning. Has been consistent since the onset but there have been times when his worsen others. Not worse with palpation or movement. Does get somewhat worse with taking a deep breath. He states that now his symptoms have greatly improved after taking the aspirin. Been no skin changes over the area. Has never had anything like this before. Related Data Home Medications Medication Instructions Recorded Confirmed ibuprofen 200 mg capsule (Advil 200 mg PO Q DAY PRN Pain (Scale 05/03/16 05/23/22 Liqui-Gel) Score 1-3) ##0 bupropion HCl 300 mg 24 hr tablet, 300 mg PO QPM 08/01/17 05/23/22 extended release (Wellbutrin XL) allopurinol 100 mg tablet 100 mg PO DAILY 04/05/20 05/23/22 losartan 100 mg tablet 100 mg PO DAILY 05/23/22 05/23/22 tamsulosin 0.4 mg capsule (Flomax) 0.4 mg PO DAILY 05/23/22 05/23/22 Previous Rx's Medication Instructions Recorded zanubrutinib 80 mg capsule 160 mg PO BID #120 caps 05/23/22 zanubrutinib 80 mg capsule 160 mg PO BID #60 caps 05/23/22 (Brukinsa) zanubrutinib 80 mg capsule 160 mg PO BID #60 caps 05/23/22 (Brukinsa) Allergies Allergy/AdvReac Type Severity Reaction Status Date / Time penicillin G Allergy Severe ANAPHALATIC Verified 06/04/22 16:08 SHOCK codeine Allergy Unknown REALLY Verified 06/04/22 16:08 SICK WITH NAUSEA. Review of Systems Review of Systems ROS Unobtainable: All systems reviewed & are unremarkable except as noted in HPI and below Patient History Medical History CKD (chronic kidney disease) stage 3, GFR 30-59 ml/min CLL (chronic lymphocytic leukemia) Gout History of kidney stones HTN (hypertension) Surgical History History of appendectomy History of colonoscopy History of extraction of renal calculus History of inguinal hernia repair History of umbilical hernia repair Family History Mother Myocardial infarct Son Myocardial infarct Father Dementia Social History household members: spouse Smoking Status: Never smoker Smoking Status: Never smoker alcohol intake frequency: a few times a month Substance Use Type: does not use Exam Initial Vital Signs Initial Vital Signs: Vital Signs Temperature 98.8 F 06/04/22 16:05 Pulse Rate 84 06/04/22 16:05 Respiratory Rate 20 06/04/22 16:05 Blood Pressure 148/82 H 06/04/22 16:05 Pulse Oximetry 96 06/04/22 16:05 Oxygen Delivery Method Room Air 06/04/22 16:05 Const General: cooperative, comfortable and No ill appearing HENMT Head: normal to inspection and normocephalic Chest Chest: No crepitus and No tenderness Resp Effort & Inspection: normal respiratory effort Auscultation: clear to auscultation bilaterally Cardio Rate: regular rate Rhythm: regular rhythm GI Inspection: normal to inspection Skin General: no rashes or lesions noted Neuro General: patient alert, patient awake, patient oriented x3 and moves all extremities Extrem General: normal to inspection and capillary refill normal Scores HEART Score Heart Score history: Slightly Suspicious Heart Score EKG: Normal Heart Score Age: > or = 65 years old Heart Score risk factors: 1-2 risk factors Heart Score troponin: < or = to normal limit Heart Score Total: 3 Course Orders Ordered: ED Orders 06/04/22 16:18 EKG-12 Lead Stat 06/04/22 16:25 BNP [NT-proBNP (BNP-Adult 18+)] Stat 06/04/22 16:50 COVID19 -Nasal RAPID Stat 06/04/22 16:54 Complete Blood Count AUTO DIFF Stat Comprehensive Metabolic Panel Stat Lipase Stat Magnesium Stat PTT Partial Thromboplastin Sanjiv Stat Prothrombin Time INR Stat Troponin & CK Cardiac Panel Stat 06/04/22 18:18 CT angio chest PE protocol Stat Discontinued Medications Aspirin (Aspirin 81 Mg Chew Tab) 324 mg PO NOW ONE Stop: 06/04/22 16:10 Last Admin: 06/04/22 17:08 Dose: 324 mg Documented By: AMOS Vital Signs Vital signs: Vital Signs - 8 hr 06/04/22 17:30 06/04/22 18:00 06/04/22 18:30 Pulse Rate 59 L 57 L 66 Respiratory Rate 28 H 29 H 22 Blood Pressure Pulse Oximetry 95 96 95 Oxygen Delivery Method 06/04/22 19:00 06/04/22 20:52 Pulse Rate 50 L 52 L Respiratory Rate 17 19 Blood Pressure 161/79 H Pulse Oximetry 95 96 Oxygen Delivery Method Room Air MDM - Chest Pain Medical Records Data Attestation: I reviewed the patient's medical records. Lab Data Attestation: I reviewed the patient's lab results. 06/04/22 16:54 06/04/22 16:54 Labs: Lab Results 06/04/22 06/04/22 06/04/22 Range/Units 16:50 16:54 16:54 WBC 273.7 H* (4.5-11.0) X10^3/uL RBC 3.61 L (4.5-5.9) X10^6/uL Hgb 11.8 L (13.5-17.5) g/dL Hct 35.3 L (41-53) % MCV 97.9 (80-100) fL MCH 32.7 (26-34) PG MCHC 33.4 (30-36) % RDW 14.9 H (11.6-14.8) % Plt Count 203 (150-400) X10^3/uL Neut % (Auto) Not Reportable Lymph % (Auto) Not Reportable [place] % (Auto) Not Reportable Eos % (Auto) Not Reportable Baso % (Auto) Not Reportable Lymph # (Auto) Not Reportable [place] # (Auto) Not Reportable Baso # (Auto) Not Reportable Total Counted 100 Seg Neutrophils % 3.0 L (38-70) % Lymphocytes % (Manual) 97.0 H (25-45) % Neutrophils # (Manual) 8211 H (0718-3592) /uL RBC Morphology Normal morphology PT 11.7 (10.1-12.7) SECONDS INR 1.0 (0.9-1.3) APTT 35 (26-36) SECONDS Sodium (137-145) mmol/L Potassium (3.4-5.1) mmol/L Chloride (98-107) mmol/L Carbon Dioxide (22-32) mmol/L BUN (9-20) mg/dL Creatinine (0.66-1.25) mg/dL Estimated GFR (>60) mL/min BUN/Creatinine Ratio (6-22) Glucose (80-110) mg/dL Calcium (8.4-10.2) mg/dL Magnesium (1.6-2.3) mg/dL Total Bilirubin (0.2-1.3) mg/dL AST (17-59) IU/L ALT (<50) IU/L Alkaline Phosphatase (38-126) U/L Total Creatine Kinase (55-170) U/L CK-MB (CK-2) CK-MB (CK-2) Rel Index Troponin I (0.01-0.034) ng/mL Total Protein (6.3-8.2) g/dL Albumin (3.5-5.0) g/dL Globulin (1.7-4.1) g/dL Albumin/Globulin Ratio (1.0-2.8) Lipase (23-300) U/L SARS-CoV-2 (PCR) Negative (Negative) 06/04/22 Range/Units 16:54 WBC (4.5-11.0) X10^3/uL RBC (4.5-5.9) X10^6/uL Hgb (13.5-17.5) g/dL Hct (41-53) % MCV (80-100) fL MCH (26-34) PG MCHC (30-36) % RDW (11.6-14.8) % Plt Count (150-400) X10^3/uL Neut % (Auto) Lymph % (Auto) [place] % (Auto) Eos % (Auto) Baso % (Auto) Lymph # (Auto) [place] # (Auto) Baso # (Auto) Total Counted Seg Neutrophils % (38-70) % Lymphocytes % (Manual) (25-45) % Neutrophils # (Manual) (5835-3683) /uL RBC Morphology PT (10.1-12.7) SECONDS INR (0.9-1.3) APTT (26-36) SECONDS Sodium 138 (137-145) mmol/L Potassium 5.6 H (3.4-5.1) mmol/L Chloride 114 H (98-107) mmol/L Carbon Dioxide 19 L (22-32) mmol/L BUN 35 H (9-20) mg/dL Creatinine 1.73 H (0.66-1.25) mg/dL Estimated GFR 42 L (>60) mL/min BUN/Creatinine Ratio 20.2 (6-22) Glucose 93 (80-110) mg/dL Calcium 8.6 (8.4-10.2) mg/dL Magnesium 2.2 (1.6-2.3) mg/dL Total Bilirubin 0.3 (0.2-1.3) mg/dL AST 58 (17-59) IU/L ALT 21 (<50) IU/L Alkaline Phosphatase 95 (38-126) U/L Total Creatine Kinase 53 L (55-170) U/L CK-MB (CK-2) TNP CK-MB (CK-2) Rel Index TNP Troponin I < 0.012 (0.01-0.034) ng/mL Total Protein 6.5 (6.3-8.2) g/dL Albumin 4.0 (3.5-5.0) g/dL Globulin 2.5 (1.7-4.1) g/dL Albumin/Globulin Ratio 1.6 (1.0-2.8) Lipase 85 (23-300) U/L SARS-CoV-2 (PCR) (Negative) Imaging Data Chest x-ray: Radiologist's Impression: PROCEDURE:? XR CHEST 1V ? INDICATIONS:? chest pain ? TECHNIQUE:? One view of the chest was acquired.? ? COMPARISON:? [facility], , CHEST 1 VIEW, 01/24/2017, 10:45. ? FINDINGS:? ? Surgical changes and devices:? None.? ? Lungs and pleura:? Patchy left basilar airspace opacity. ? Mediastinum:? Mediastinal contours appear normal.? Heart size is normal.? ? Bones and chest wall:? No suspicious bony lesions.? Overlying soft tissues appear unremarkable.? ? IMPRESSION:? Patchy left basilar airspace opacity, either atelectasis or infection. CT scan - chest: Radiologist's Impression: PROCEDURE:? CT ANGIO CHEST PE PROTOCOL ? INDICATIONS:? hx of CLL and DVT with chest pain ? TECHNIQUE:? After the administration of intravenous contrast, 2 mm thick sections acquired from the pulmonary apices to the posterior costophrenic angles.? 3-dimensional maximum intensity projection (MIP) coronal and sagittal reformats were then acquired through the thorax.? For radiation dose reduction, the following was used:? automated exposure control, adjustment of mA and/or kV according to patient size.? ? COMPARISON:? None. ? FINDINGS:? Image quality:? Excellent.? ? Pulmonary arteries:? Pulmonary arteries are normal in size, and demonstrate no intraluminal filling defects to suggest central pulmonary embolism.? ? Lungs and pleura:? Minor atelectatic changes are present at both lung bases.? Lungs are otherwise clear.? There is a prominent juxta fissural lymph node associated with the right minor fissure.? No pleural effusions or pneumothorax.? Central and peripheral airways are patent.? ? Mediastinum:? Heart size is normal, without pericardial effusion.? Mild bilateral hilar adenopathy.? Moderate mediastinal adenopathy.? Thoracic aorta is normal in caliber and enhancement.? Esophagus is normal in caliber, without hiatal hernia.? ? Bones and chest wall:? Prominent bilateral axillary adenopathy, left more so than right.? There are few bilateral supraclavicular lymph nodes.? The thyroid gland is normal.? Chest wall and osseous structures are without suspicious bone lesion.? There is a healed transverse sternal fracture. ? Abdomen:? The visible upper abdomen demonstrates mildly prominent epigastric retroperitoneal and shan hepatis lymph nodes.? Spleen is partially imaged and probably enlarged. ? IMPRESSION:? ? 1. No pulmonary embolus. ? 2. No acute cardiopulmonary disease. ? 3. Diffuse adenopathy consistent with known CLL, most evident in the axillary regions.? Splenomegaly is also consistent with this history. ECG Data Attestation: I personally reviewed and interpreted this ECG as follows: Interpretation: Sinus rhythm Ventricular rate is 73 Normal axis Occasional PAC No ST T wave changes MDM Narrative Medical decision making narrative: Patient is a low risk heart score. Troponin is negative greater than 6 hours after the onset of consistent symptoms. His EKG is unremarkable. Patient clinically does not have pneumonia. CTA does not show any signs of a pulmonary embolism. Patient's workup here in the emergency department is very reassuring. His leukocytosis is baseline for him with his known CLL. He is scheduled to see Oncology later this week to discuss starting new medications. There are no skin changes over the area concerning for infection. Discomfort is clearly in the thoracic region I have low suspicion for intra-abdominal pathology. Will hold on any radiologic studies of his abdomen. I did discuss the lack of a definitive diagnosis with the patient. Will discharge home follow-up primary provider. He was given return precautions. He expressed understanding and agreement. Discharge Plan Departure Patient Disposition: Home Clinical Impression: Atypical chest pain Instructions: DI for Atypical Chest Pain Activity Restrictions/Additional Instructions: Recommend that you continue to take all of your medications as directed. Keep all of your scheduled medical appointments. Talk with your primary doctor about further workup. Return to the emergency department for any new symptoms. Prescriptions: No Action ibuprofen [Advil Liqui-Gel] 200 MG capsule 200 mg PO Q DAY PRN (Reason: Pain (Scale Score 1-3)) Qty: 0 bupropion HCl [Wellbutrin XL] 300 mg Tablet Extended Release 24 Hr 300 mg PO QPM allopurinol 100 mg Tablet 100 mg PO DAILY tamsulosin [Flomax] 0.4 mg Capsule 0.4 mg PO DAILY losartan 100 mg Tablet 100 mg PO DAILY Brukinsa 80 mg Capsule 160 mg PO BID Qty: 60 3RF [place] 80 mg Capsule 160 mg PO BID Qty: 60 3RF zanubrutinib 80 mg Capsule 160 mg PO BID Qty: 120 3RF Rx Instructions: Take 2 tablets in the morning and 2 tablets in evening Referrals: Edi Conte MD [Primary Care Provider] - Stand Alone Forms: Patient Portal/API
[2022-06-04 22:45] LABS: Calcium 8.6 mg/dL (8.4-10.2)
[2022-06-05 10:19] LABS: NT-proBNP (BNP-Adult 18+) 228 pg/mL (<125)
== END 2022-06-04 21:02 | disposition home or self-care (01) ==
PROVIDERS: Emergency Medicine; Emergency Provider Emergency Medicine; Family Provider Family Medicine; PCP Internal Medicine
DX: R07.89 Other chest pain (principal); Z20.822 Contact with and (suspected) exposure to COVID-19
CPT/HCPCS: 36415; 71045; 71275; 80053; 82550; 83690; 83735; 83880; 84484; 85007; 85025; 85610; 85730; 87635; 93005; 99284; C9803; Q9967

== ENCOUNTER → 2022-08-10 08:06 | Outpatient (CLI) | payer MEDICARE, SELFPAY ==
[2022-07-30 09:44] VITALS: BMI 27.9
[2022-08-10 10:01] LABS: Cholesterol 195 mg/dL (140-199); HDL Cholesterol 40 mg/dL (40-60); LDL Cholesterol Calculated 122 mg/dL (<100); Triglycerides 163 mg/dL (35-150)
== END ==
PROVIDERS: Family Provider Family Medicine; PCP Internal Medicine; Referring Provider Internal Medicine; Visit Provider Internal Medicine
DX: R07.9 Chest pain, unspecified (principal)
CPT/HCPCS: 36415; 80061

== ENCOUNTER 2022-08-23 18:51 | Emergency (ER) | payer MEDICARE, SELFPAY ==
[2022-07-30 09:44] VITALS: BMI 27.9
[2022-08-23] VITALS (7 sets, daily range): BP systolic 119–158; BP diastolic 71–91; PULSE 81–100; RESP 18; TEMP 36.9–37.2; O2SAT 92–97; BMI 30.1
--- NOTE | 2022-08-23 19:07 | DI.RAD.S_ITS ---
PROCEDURE: XR CHEST 1V INDICATIONS: eval for PNA TECHNIQUE: One view of the chest was acquired. COMPARISON: [facility], CR, XR CHEST 1V, 06/04/2022, 16:27. FINDINGS: Surgical changes and devices: None. Lungs and pleura: Lungs are clear. No pleural effusions or pneumothorax. Mediastinum: Mediastinal contours appear normal. Heart size is normal. Bones and chest wall: No suspicious bony lesions. Overlying soft tissues appear unremarkable. IMPRESSION: No acute process. Dictated by: Lisseth Martins M.D. on 08/23/2022 at 19:32 Approved by: Lisseth Martins M.D. on 08/23/2022 at 19:32
--- NOTE | 2022-08-23 19:20 | ED_ITS ---
HPI - General Adult General Chief complaint: Upper Respiratory Symptoms Stated complaint: Cough, Fever Time Seen by Provider: 08/23/22 19:07 Source: patient Mode of arrival: Ambulatory History of Present Illness HPI narrative: Patient is a 72-year-old male. Is scheduled to have a sigmoidectomy next Saturday for diverticulitis. He had an appointment with his surgeon today. He was told that if he develops any sort of fever that he needs to come to the emergency department. He states this afternoon he started to have fever he also has cough and sinus congestion. He is no abdominal pain. No skin rashes. No vomiting. No neck pain. No headache. He did take some antipyretics prior to arrival. Related Data Home Medications Medication Instructions Recorded Confirmed ibuprofen 200 mg capsule (Advil 200 mg PO Q DAY PRN Pain (Scale 05/03/16 08/23/22 Liqui-Gel) Score 1-3) ##0 bupropion HCl 300 mg 24 hr tablet, 300 mg PO QPM 08/01/17 08/23/22 extended release (Wellbutrin XL) allopurinol 100 mg tablet 200 mg PO BEDTIME 04/05/20 08/23/22 losartan 100 mg tablet 100 mg PO BEDTIME 05/23/22 08/23/22 tamsulosin 0.4 mg capsule (Flomax) 0.4 mg PO BEDTIME 05/23/22 08/23/22 Previous Rx's Medication Instructions Recorded zanubrutinib 80 mg capsule 160 mg PO BID #120 caps 06/19/22 metronidazole 500 mg tablet 500 mg PO TID #3 tabs 08/10/22 neomycin 500 mg tablet 1 g PO TID 3 doses #6 tabs 08/10/22 sodium sul 1.479 gram-potas ch See Rx Instructions PO PER PKG DIR 08/10/22 0.188 gram-magnes sul 0.225 gram #24 tabs tablet (Sutab) psyllium husk (with sugar) 3.4 1 tbsp PO BID #822 grams 08/11/22 gram/7 gram oral powder (Fiber (psyllium husk-sugar)) azithromycin 250 mg tablet See Rx Instructions PO .COMPLEX #6 08/23/22 tabs Allergies Allergy/AdvReac Type Severity Reaction Status Date / Time penicillin G Allergy Severe ANAPHALATIC Verified 08/23/22 10:36 SHOCK codeine Allergy Unknown REALLY Verified 08/23/22 10:36 SICK WITH NAUSEA. lisinopril AdvReac Intermediate Cough Verified 08/23/22 10:36 Review of Systems Constitutional Constitutional: Reports system reviewed and no additional complaints, except as documented ENT Ears, Nose, Mouth, and Throat: Reports system reviewed and no additional complaints, except as documented Respiratory Respiratory: Reports system reviewed and no additional complaints, except as documented Integumentary/Breasts Skin/Breast: Reports system reviewed and no additional complaints, except as documented Neurologic Neurologic: Reports system reviewed and no additional complaints, except as documented Hematologic/Lymphatic On Anticoagulants: No Patient History Medical History CKD (chronic kidney disease) stage 3, GFR 30-59 ml/min CLL (chronic lymphocytic leukemia) Gout History of kidney stones HTN (hypertension) Surgical History History of appendectomy History of carpal tunnel surgery of right wrist History of colonoscopy History of extraction of renal calculus History of inguinal hernia repair History of umbilical hernia repair Hx of arthroscopy of left knee Hx of arthroscopy of right knee Family History Mother Myocardial infarct Son Myocardial infarct Father Dementia Social History marital status: household members: spouse lives independently: Yes occupational status: employed Smoking Status: Never smoker alcohol intake: current substance use type: does not use Smoking Status: Never smoker alcohol intake frequency: a few times a month Substance Use Type: does not use Exam Initial Vital Signs Initial Vital Signs: Vital Signs Temperature 98.5 F 08/23/22 18:53 Pulse Rate 100 H 08/23/22 18:53 Respiratory Rate 18 08/23/22 18:53 Blood Pressure 158/91 H 08/23/22 18:53 Pulse Oximetry 97 08/23/22 18:53 Oxygen Delivery Method Room Air 08/23/22 18:53 HENMT Head: normal to inspection and normocephalic Resp Effort & Inspection: normal respiratory effort Auscultation: clear to auscultation bilaterally Cardio Rate: regular rate Rhythm: regular rhythm GI Inspection: normal to inspection Skin General: no rashes or lesions noted Neuro General: patient alert and moves all extremities Extrem General: normal to inspection and capillary refill normal Course Orders Ordered: ED Orders 08/23/22 18:58 Covid-19 + FLU A/B + RSV - PCR Stat 08/23/22 19:07 XR chest 1V Stat Vital Signs Vital signs: Vital Signs - 8 hr 08/23/22 18:53 08/23/22 19:07 08/23/22 19:30 Temperature 98.5 F Pulse Rate 100 H 95 H Respiratory Rate 18 Blood Pressure 158/91 H 147/80 H 137/71 Pulse Oximetry 97 95 Oxygen Delivery Method Room Air Room Air 08/23/22 19:30 08/23/22 20:00 08/23/22 20:01 Temperature Pulse Rate 98 H 91 H Respiratory Rate Blood Pressure 126/76 Pulse Oximetry 93 94 Oxygen Delivery Method 08/23/22 20:30 08/23/22 20:30 08/23/22 20:54 Temperature 98.9 F Pulse Rate 81 Respiratory Rate Blood Pressure 119/71 Pulse Oximetry 92 Oxygen Delivery Method Medical Decision Making Lab Data Lab results reviewed: Yes I reviewed the patient's lab results. Labs: Lab Results 08/23/22 Range/Units 18:58 SARS-CoV-2 (PCR) Negative (Negative) Influenza A (RT-PCR) Flu a negative (NEGATIVE) Influenza B (RT-PCR) Flu b negative (NEGATIVE) RSV (PCR) Negative (Negative) Imaging Data Chest x-ray: Radiologist's Impression: PROCEDURE:? XR CHEST 1V ? INDICATIONS:? eval for PNA ? TECHNIQUE:? One view of the chest was acquired.? ? COMPARISON:? [facility], , XR CHEST 1V, 06/04/2022, 16:27. ? FINDINGS:? ? Surgical changes and devices:? None.? ? Lungs and pleura:? Lungs are clear.? No pleural effusions or pneumothorax.? ? Mediastinum:? Mediastinal contours appear normal.? Heart size is normal.? ? Bones and chest wall:? No suspicious bony lesions.? Overlying soft tissues appear unremarkable.? ? IMPRESSION:? No acute process. MDM Narrative Medical decision making narrative: Patient did arrive tachycardic but this improved. He is not in respiratory distress. His chest x-ray is unremarkable. His COVID and flu and RSV are negative. The only potential source of an infection that can be found based on his history and physical is respiratory in nature. It is important for him to get this surgery next week because of his issues that he has been having with diverticulitis. I will send the patient home with a written prescription for antibiotics. He is going to hold on filling this do see how he feels over the next 24-48 hours. If his symptoms start to worsen that he will fill the prescriptions start taking it as directed. If he starts to feel better then he will not fill the prescription. He was given return precautions and follow-up instructions. He expressed understanding and agreement. Discharge Plan Departure Patient Disposition: Home Clinical Impression: Cough, Fever Instructions: Cough, DI for Fever (Symptom) -- Adult Activity Restrictions/Additional Instructions: You can take Tylenol and/or ibuprofen for any fevers. Recommend that you hold on filling the prescription for antibiotics for the next 24-48 hours. If your symptoms worsen then fill this prescription and start taking it as directed. If your symptoms are improving then just discard this prescription. Continue to keep all of your scheduled medical appointments. Return to the emergency department for new or worsening symptoms. Prescriptions: New azithromycin 250 mg tablet See Rx Instructions .ROUTE .COMPLEX Qty: 6 0RF Rx Instructions: For 250 mg dose pack: take 500 mg today (day 1), then 250 mg for 4 days (days 2-5) No Action ibuprofen [Advil Liqui-Gel] 200 MG capsule 200 mg PO Q DAY PRN (Reason: Pain (Scale Score 1-3)) Qty: 0 Fiber (psyllium husk-sugar) 3.4 gram/7 gram powder 1 tbsp PO BID Qty: 822 0RF Rx Instructions: take daily to prevent diverticulitis. Sutab 1.479-0.188- 0.225 gram tablet See Rx Instructions PO PER PKG DIR Qty: 24 0RF Rx Instructions: Take as directed by Physician neomycin 500 mg tablet 1 g PO TID Qty: 6 0RF Rx Instructions: administer at 1 PM, 2 PM, and 10 PM the day prior to surgery metronidazole 500 mg tablet 500 mg PO TID Qty: 3 0RF Rx Instructions: administer at 1 PM, 2 PM, and 10 PM the day prior to surgery bupropion HCl [Wellbutrin XL] 300 mg Tablet Extended Release 24 Hr 300 mg PO QPM allopurinol 100 mg Tablet 200 mg PO BEDTIME tamsulosin [Flomax] 0.4 mg Capsule 0.4 mg PO BEDTIME losartan 100 mg Tablet 100 mg PO BEDTIME zanubrutinib 80 mg Capsule 160 mg PO BID Qty: 120 3RF Rx Instructions: Take 2 tablets in the morning and 2 tablets in evening Referrals: Edi Conte MD [Primary Care Provider] - Stand Alone Forms: Patient Portal/API
[2022-08-23 19:43] LABS: Influenza A - CEPHEID Flu A NEGATIVE (NEGATIVE); Influenza B - CEPHEID Flu B NEGATIVE (NEGATIVE); Respiratory Syncytial Virus Negative (Negative)
[2022-08-23 20:34] LABS: COVID-19 CEPHEID 4-PLEX PCR Negative (Negative)
== END 2022-08-23 20:54 | disposition home or self-care (01) ==
PROVIDERS: Emergency Provider Emergency Medicine; Family Provider Family Medicine; PCP Internal Medicine
DX: R05.9 Cough, unspecified (principal); R50.9 Fever, unspecified; R00.0 Tachycardia, unspecified; K57.32 Diverticulitis of large intestine without perforation or abscess without bleeding; Z20.822 Contact with and (suspected) exposure to COVID-19
CPT/HCPCS: 0241U; 71045; 99212; 99283

== ENCOUNTER 2022-08-29 09:10 | Inpatient (IN) | payer MEDICARE, SELFPAY ==
[2022-07-30 09:44] VITALS: BMI 27.9
[2022-08-21 08:42] VITALS: BMI 30.1
[2022-08-29] VITALS (15 sets, daily range): BP systolic 127–147; BP diastolic 66–98; PULSE 67–91; RESP 14–18; TEMP 36.3–36.7; O2SAT 93–97; BMI 28.7
--- NOTE | 2022-08-29 | PATH_ITS ---
[facility] Accession Number: [id number] No. of containers..02 Tissue . 01 Material submitted: . PART A: colon - SIGMOID COLON PART B: colon - ANASTAMOTIC RINGS . 01 Diagnosis: A. Sigmoid Colon, Sigmoidectomy: Segment of colon with diverticulosis and focal active inflammation, consistent with diverticulitis. Eleven pericolonic lymph nodes with histomorphologic features of involvement by known history of chronic lymphocytic leukemia/small lymphocytic lymphoma; please see comment. Negative for cytologic dysplasia. . B. Colon, Anastomotic Rings: Colonic tissue with no diagnostic abnormality. No evidence of neoplasm. [facility] 09/04/2022 1347 Local . 01 Comment: Sections from the sampled pericolonic lymph nodes show a diffusely effaced architecture and montonous population of small lymphocytes. The morphologic features are consistent with involvement by the known history of chronic lymphocytic leukemia/small lymphocytic lymphoma. Given the known history, an immunohistochemical workup is deferred. If clinically indicated, additional studies can be performed upon request. . As part of routine software quality specialist, Dr. Parikh has reviewed the lymph nodes from this case (blocks A6-A8), and agrees that the features are consistent with CLL/SLL. The preliminary findings in this case were reported to Dr. Arambula via TONIA Alejandra by Dr. De La Torre on 09/04/2022. . 01 Electronically signed: . Aime De La Torre MD, PhD, Pathologist NPI- [id number] . 01 Gross description: . A. Received in formalin labeled with the patient's name, , and sigmoid colon, and consists of an unoriented portion of colon measuring 19.5 cm in length by 2.0 cm in average diameter. The serosa is rivera and wrinkled with a moderate amount of adhered adipose. One staple line is inked blue, the opposite end is grossly patent and is inked black, while the mesenteric margin is inked green. The lumen contains a small amount of yellow-green mucoid bile, and the mucosa is pink-rivera and velvety with normal-appearing folds and no polyps or lesions identified. The ornelas average 0.3 cm thick with multiple diverticula measuring up to 0.8 cm in maximum depth with no perforations grossly identified. Palpation reveals 13 rivera lymph node candidates ranging from 0.2 to 0.6 cm in greatest dimension. Spectrographer sections are submitted as follows: A1: Spectrographer black, blue, and green margins en face. A2-A3: Spectrographer diverticula. A4-A5: Normal mucosa. A6: Four intact lymph node candidates. A7: Four intact lymph node candidates. A8: Five intact lymph node candidates. B. Received in formalin labeled with the patient's name, , and anastomotic rings, and consists of two unoriented, circular fragments of bowel. The first measures 2.7 x 2.5 x 1.5 cm, has a purple suture, and is inked blue. The second fragment measures 2.5 x 1.5 x 1.5 cm and is inked green. The mucosa is pink-rivera and velvety with no lesions identified. Spectrographer sections are submitted in cassettes B1-B2. ([id number]) /KAILEY 08/30/2022 0853 Local . 01 Pathologist provided ICD-10: K57.92, Z85.6 . 01 CPT . 654010, [id number] Performed at: 01 [facility] [address] [place] [address], [place], [place] [id number] MD Luiz Restrepo MD Phone: [phone]
[2022-08-29] MEDS: LACTATED RINGERS 1,000 ML 100 ML IV ×2 (09:52→21:24)
--- NOTE | 2022-08-29 10:11 | SUR.OPER ---
Addendum entered by Ailyn Vo R.N. 08/29/22 11:41: PINK PAD UNDER PATIENT. Original Note: Supine on padded OR bed, head on pillow, arms padded and tucked at sides, legs uncrossed, safety belt at thigh, tape over blanket over lower legs .
--- NOTE | 2022-08-29 10:55 | PM.PREOP ---
Pre-operative Note Interval Note History & Physical reviewed/Exam performed by Physician: Yes Changes to H&P: No
--- NOTE | 2022-08-29 11:42 | SUR.OPER ---
Lithotomy on padded OR bed. [place] Pad Positioner under torso. Head on pillow, arms padded and tucked at sides. Legs secured in padded yellow fins stirrups.
[2022-08-29] MEDS: levoFLOXacin 500 MG/100 ML PIGGYBACK 100 MG IV (11:57)
[2022-08-29] MEDS: fentaNYL 100 MCG/2 ML INJ IV (14:40)
[2022-08-29] MEDS: IBUPROFEN 600 MG TABLET PO ×2 (15:33→21:13)
[2022-08-29] MEDS: ACETAMINOPHEN 325 MG TABLET 650 MG PO ×2 (15:33→21:13)
[2022-08-29] MEDS: HYDROMORPHONE 0.5 MG INJ IV (15:34)
--- NOTE | 2022-08-29 16:15 | PM.OP.1 ---
Operative Date/Time/Diagnoses Date of procedure: 08/29/22 Time of procedure: 16:15 Pre-op diagnosis: Diverticulitis Post-op diagnosis: same Procedure & Clinicians Procedure: Laparoscopic-assisted sigmoid colectomy Same procedure as scheduled: Yes Indications: 72-year-old man history of chronic lymphocytic leukemia who has recurrent episodes of uncomplicated diverticulitis. 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 Surgeon: Burak Arambula Personnel Analyst: Kev Espinal Operative Notes Findings: Negative intraoperative leak test. Left ureter clearly identified. Anastomosis is well perfused and tension-free. Intra-abdominal adhesions prominent in the right lower quadrant consistent with a history of ruptured appendicitis exploratory laparotomy. Specimen(s): other (Sigmoid colon) Estimated Blood Loss (mL): 50 Procedure in detail: Patient was brought to the operating room placed supine on the table. Bilateral lower extremity compression devices were applied. General anesthesia was induced and he was intubated with an endotracheal tube. He received levofloxacin prior to skin incision. He was placed into lithotomy position appropriately padded. Wood catheter was sterilely placed and then he was prepped and draped in sterile fashion. Time-out was performed. An infraumbilical incision was made the abdomen was entered and pneumoperitoneum was established. General inspection of the abdomen was made. There were adhesions within the right lower quadrant consistent with his history of ruptured appendicitis and exploratory laparotomy. Additional working ports were placed a 5 mm in the left lower quadrant suprapubic and an 11 mm in the right lower quadrant. Adhesions to the midline were taken down using electrocautery. The sigmoid colon was adherent to the left pelvic sidewall few places consistent with a history of diverticulitis. We began by mobilizing the sigmoid colon off of its lateral attachments. Dissection was continued superiorly to the level of the spleen following the white line of Toldt. Left ureter was identified, its identification verified by its for vermiculation. Intraoperative photo was taken. The sigmoid colon was elevated and the TRISTAN pedicle was identified. The mesentery was skeletonized and then the vessels were divided after the left colonic takeoff with the LigaSure. Prior to taking the vessels the position of the ureter was again checked. Window within the mesentery was then formed. This marked our point of proximal colonic transection. We continued to take the mesentery of the sigmoid colon staying close to the wall of the colon because this is for benign disease. At this point his previous lower midline incision was opened and a wound protector was placed. Bowel was exteriorized. The descending colon/sigmoid colon junction was divided using the YANNICK stapler blue load. The sigmoid colon was then mobilized to the point where the tenia converged at the upper rectum and this area was soft and pliable free of disease. The TA stapler was used to transect the sigmoid/rectum junction. Therectum accommodated a 33 mm Sizer. A 31 mm EEA stapler was selected. Pursestring was created after resecting the staple line from the descending colon with PDS. The anvil was placed inside of the colon. Stapler was then advanced forward within the rectum its point was deployed under direct visualization. The anvil and stapler were then mated under direct visualization. We ensured that it was tension-free and without twisting of the mesentery. Stapler was fired and returned 2 intact anastomotic donuts sent as specimen. The colonoscope was then inserted into the rectum and advanced forward. The anastomosis was observed and appeared to be intact and hemostatic. The colon was insufflated and the leak test was negative. The abdomen was then irrigated hemostasis was checked. The fascia was then closed with a running 1. PDS suture. The subcutaneous tissue and skin were closed followed by the application of Dermabond. The sponge and instrument count was correct. Patient tolerated the procedure well and was transferred to recovery in stable condition. Complications: none Post-operative Condition: stable Disposition: Acute Care
--- NOTE | 2022-08-29 16:19 | PT-IP ANOTE ---
Patient drowsy and still in a lot of pain, so was not appropriate to mobilize yet with PT. Visited with patient and to obtain history and home setup. Will plan to eval tomorrow morning. asked about HH services; explained to her that PT will need to do a functional assessment before making any recommendations.
[2022-08-29] MEDS: OXYCODONE IR 5 MG TABLET PO ×2 (17:37→21:13)
[2022-08-29] MEDS: buPROPion XL 150 MG TAB 300 MG PO (17:38)
[2022-08-29] MEDS: TAMSULOSIN 0.4 MG CAPSULE PO (21:12)
[2022-08-29] MEDS: allopurinoL 100 MG TABLET 200 MG PO (21:13)
[2022-08-29] MEDS: LOSARTAN 50 MG TABLET 100 MG PO (21:13)
[2022-08-30] VITALS (7 sets, daily range): BP systolic 106–117; BP diastolic 53–72; PULSE 56–77; RESP 18–20; TEMP 36.2–37.6; O2SAT 94–98
[2022-08-30] MEDS: IBUPROFEN 600 MG TABLET PO ×4 (02:58→20:54)
[2022-08-30] MEDS: ACETAMINOPHEN 325 MG TABLET 650 MG PO ×4 (02:58→20:53)
[2022-08-30 06:26] LABS: BUN Creatinine Ratio 14.9 (6-22); Blood Urea Nitrogen 26 mg/dL (9-20); Calcium 7.9 mg/dL (8.4-10.2); Carbon Dioxide 21 mmol/L (22-32); Chloride 107 mmol/L (98-107); Estimated Glomerular Filt Rate 41 mL/min (>60); Glucose 101 mg/dL (80-110); HEMOLYSIS 15 (0-50); Potassium 5.2 mmol/L (3.4-5.1); Sodium 135 mmol/L (137-145)
[2022-08-30] MEDS: LACTATED RINGERS 1,000 ML 100 ML IV (07:02)
[2022-08-30] MEDS: OXYCODONE IR 5 MG TABLET PO ×2 (07:05→11:43)
[2022-08-30 07:46] LABS: Hematocrit 35.1 % (41-53); Hemoglobin 11.7 g/dL (13.5-17.5); Mean Corpuscular HGB Conc 33.2 % (30-36); Mean Corpuscular Hemoglobin 32.8 PG (26-34); Mean Corpuscular Volume 98.6 fL (80-100); Platelet Count 202 X10^3/uL (150-400); Red Blood Cell Count 3.56 X10^6/uL (4.5-5.9)
[2022-08-30 07:55] LABS: Add Manual Diff / Slide Review YES
[2022-08-30 08:23] LABS: Neutrophils Absolute Manual 12960 /uL (3000-5900); Total Cells Counted 100
[2022-08-30 08:25] LABS: Platelet Estimate Adequate on smear; RBC Morphology Normal Morphology
[2022-08-30 08:26] LABS: Smudge Cells 2+
--- NOTE | 2022-08-30 08:35 | PC.NURSE ---
Patient is alert and oriented x4, [id number], will notify his surgeon. just notified of patients increased wbc, Juice has hx of CLL. His previous wbc in July was 254. He does have a small midline incision with 3 small lap sites that are all glued together. They are all cdi and patients bowel tones are hypoactive. He complains of pain at 6/10, will medicated patient when it is time. He has been getting oxycodone and this has been helpful for discomfort.
[2022-08-30] MEDS: ENOXAPARIN 40 MG/0.4 ML SYRINGE SUBCUT (08:53)
--- NOTE | 2022-08-30 09:22 | P.PN_ITS ---
Subjective Subjective Date Patient Seen: 08/30/22 Time Patient Seen: 09:23 Interval history: No major overnight events. Pain well controlled. Afebrile, VSWNL Exam Vital Signs (past 8 hours): - 08/30/22 03:00 08/30/22 03:00 08/30/22 08:30 Temperature 97.1 F L Pulse Rate 70 Respiratory Rate 20 Blood Pressure 111/57 L Pulse Oximetry 94 94 Oxygen Delivery Method Room Air Room Air Oxygen Flow Rate 0 08/30/22 08:00 Temperature 99.6 F Pulse Rate 68 Respiratory Rate 18 Blood Pressure 106/56 L Pulse Oximetry 95 Oxygen Delivery Method Oxygen Flow Rate 0 Oxygen Delivery Method Room Air Oxygen Flow Rate 0 Narrative Exam Narrative: General adult man alert oriented no acute distress Abdomen soft appropriately tender to palpation. Incisions are clean dry intact. Objective Labs 08/30/22 05:56 08/30/22 05:56 Labs: Laboratory Results - last 24 hr 08/30/22 08/30/22 05:56 05:56 WBC 162.0 H* RBC 3.56 L Hgb 11.7 L Hct 35.1 L MCV 98.6 MCH 32.8 MCHC 33.2 RDW 14.0 Plt Count 202 Neut % (Auto) Not Reportable Lymph % (Auto) Not Reportable [place] % (Auto) Not Reportable Eos % (Auto) Not Reportable Baso % (Auto) Not Reportable Lymph # (Auto) Not Reportable [place] # (Auto) Not Reportable Baso # (Auto) Not Reportable Total Counted 100 Seg Neutrophils % 8.0 L Lymphocytes % (Manual) 92.0 H Neutrophils # (Manual) 82897 H Smudge Cells 2+ H Platelet Estimate Adequate on smear RBC Morphology Normal morphology Sodium 135 L Potassium 5.2 H Chloride 107 Carbon Dioxide 21 L BUN 26 H Creatinine 1.75 H Estimated GFR 41 L BUN/Creatinine Ratio 14.9 Glucose 101 Calcium 7.9 L PFSH Medical History CKD (chronic kidney disease) stage 3, GFR 30-59 ml/min CLL (chronic lymphocytic leukemia) Gout History of kidney stones HTN (hypertension) Surgical History History of appendectomy History of carpal tunnel surgery of right wrist History of colonoscopy History of extraction of renal calculus History of inguinal hernia repair History of umbilical hernia repair Hx of arthroscopy of left knee Hx of arthroscopy of right knee Family History Mother Myocardial infarct Son Myocardial infarct Father Dementia Social History marital status: household members: spouse lives independently: Yes occupational status: employed Smoking Status: Never smoker alcohol intake: current substance use type: does not use Assessment & Plan Post-op Postoperative Procedures: Procedures Operation Date: 08/29/22 10:45 Actual Procedure Side Surgeon p Laparoscopic Sigmoid Colectomy Burak Arambula MD Postoperative status narrative: 72-year-old man postoperative day 1 status post elective laparoscopic assisted sigmoid colectomy for diverticular disease. Doing well and progressing appropriately. -remove Wood catheter -DC IV fluids -out of bed ambulate physical therapy. -advanced regular diet -SCDs and prophylactic Lovenox Quality VTE Deep Vein Thrombosis/Pulmonary Embolism Present on Admission: No
--- NOTE | 2022-08-30 10:21 | OT.IP.EVAL ---
Addendum entered and electronically signed by Temitope Espino OT 08/30/22 12:51: edit Original Note: Current Diagnoses Diverticulitis of intestine, part unspecified, without perforation or abscess without bleeding (08/29/22) Surgery Performed Operation Date: 08/29/22 10:45 Actual Procedures p Laparoscopic Sigmoid Colectomy - Burak Arambula MD Past Medical History (Last Reviewed 08/23/22 @ 22:46 by Glenroy Joyce DO) CKD (chronic kidney disease) stage 3, GFR 30-59 ml/min CLL (chronic lymphocytic leukemia) Gout History of kidney stones HTN (hypertension) Surgical History (Last Reviewed 08/23/22 @ 11:40 by Burak Arambula MD) History of appendectomy History of carpal tunnel surgery of right wrist History of colonoscopy History of extraction of renal calculus History of inguinal hernia repair History of umbilical hernia repair Hx of arthroscopy of left knee Hx of arthroscopy of right knee Occupational Therapy Inpatient Evaluation/Re-Eval M1 PT/OT-IP Prior Functional Status Start: 08/30/22 11:22 Freq: NEEDED Status: Active Protocol: Document 08/30/22 10:21 [facility] (Rec: 08/30/22 11:39 [facility] [id number]) Medical Review Prior Functional Status Communication Indep Mobility and Gait Indep without AD Activities of Daily Living and IADL's Indep Prior Functional Level (Other details) Able to drive Social History Household Members spouse Living Arrangements House Number of Floors (Floors) Two Floors Number of Stairs To Enter/Railing? No steps to bedroom and 1/2 bath and flight 7 steps, landing and then another 7 steps with rail on the right side going up both sets of stairs. Home Environment Standard Height Toilet,Walk in Shower,Tub/Shower Home Equipment Front Wheel Walker,Supervisor Reclamation,Bed Rails Additional Social History Comment Pt has a built in seat. Per pt , his able to take a day or two off of work to assist with his needs initially. M2 OT-IP Current Condition Start: 08/30/22 11:22 Freq: Status: Active Protocol: Document 08/30/22 10:21 [facility] (Rec: 08/30/22 11:39 [facility] [id number]) Occupational Therapy Current Condition Current Condition Evaluation Date 08/30/22 Treatment Diagnosis S/P Laparoscopic assisted sigmoid colectomy Diagnosis Onset Date 6/21/23 Post Operative Precautions Abdominal Surgery Precautions Log Roll,Lifting Restrictions, Gait Belt above Incisional Area M3 OT- IP Subjective and Pain Start: 08/30/22 11:22 Freq: Status: Active Protocol: Document 08/30/22 10:21 [facility] (Rec: 08/30/22 11:39 [facility] [id number]) OT- Subjective Occupational Therapy Visit Type Type Initial Evaluation Visit Start Time 10:21 Visit Stop Time 10:53 Total Visit Minutes 32 Occupational Therapy Visit Comments Patient Comments Pt agreed to get up to the chair. Patient/Caregiver Goals To go home. OT Pain Assessment Pain When Pain Assessed At Rest Pain Present Pain Present Pain Reported Location abdomen Intensity 5 Scale Used Numeric (0 - 10) M4 OT- IP ADL's Start: 08/30/22 11:22 Freq: Status: Active Protocol: Document 08/30/22 10:21 [facility] (Rec: 08/30/22 11:39 [facility] [id number]) OT PTN-Wvch-Mrcpxty Comments OT Self-Feeding Comments Pt on clear liquids this AM and per pt suppose to have diet advanced today per surgeon. Educated pt to be sure to chew up his food thoroughly. OT ADL-Grooming Comments OT Grooming Comments Pt states did prior in bed. OT ADL-Oral Care General Eval Oral Care Ability Independent OT ADL-Dressing General Eval Lower Body Dressing Ability Maximum Assistance Comments OT Dressing Comments Pt needing assist for socks. Able to educated pt on LB dressing equipment and pt able to states good understanding. Pt states to not wear socks at this time and agreed on wearing loose clothing. OT ADL-Toileting Comments OT Toileting Comments Wood just taken out. Educated easier to stand and wipe at this time and use of wet-ones to assist. Suggested on use of urinal at night if pt still planning on sleeping in the lift chair at night. OT ADL-Bathing Comments OT Bathing Comments Pt states has a built in seat at home. M5 OT- IP IADL's Start: 08/30/22 11:22 Freq: Status: Active Protocol: Document 08/30/22 10:21 [facility] (Rec: 08/30/22 11:39 [facility] [id number]) OT-Instrumental Activities of Daily Living Deficits IADL Deficits Identified Deficits Home Safety Awareness Awareness of Need for Assistance at Home Good Awareness Ability to Problem Solve Emergency Able to Problem Solve Situations Home Safety Comments Pt has a supportive to be able to assist at home for a couple days. Medication Management Medication Management No Deficits Identified Money Management Money Management No Deficits Identified Meal Preparation Meal Preparation Caregiver Provides Assist Processing Supervisor Processing Supervisor Caregiver Provides Assist M6 OT- IP Functional Cognition Start: 08/30/22 11:22 Freq: Status: Active Protocol: Document 08/30/22 10:21 [facility] (Rec: 08/30/22 11:39 [facility] [id number]) Cognitive Factors Limiting Selfcare Function Cognitive Ability Level of Alertness Alert Patient Orientation Name,Age,Birthday,Month,Date, Year,Day of Week,Place, Situation Attention Span Ability Capable of Focused Attention, Capable of Sustained Attention Ability to Follow Commands Able to Follow Multi-Step Commands Cognitive Comments Cognitive Assessment Comments Intact no deficits. OT- Vision and Hearing OT- Hearing Assessment OT- Hearing Assessment WFL OT- Vision Assessment Visual Acuity Glasses All The Time Visual Attentiveness WFL Occular Pursuits WFL Visual Convergence WFL M7 OT- IP Mobility and Balance Start: 08/30/22 11:22 Freq: Status: Active Protocol: Document 08/30/22 10:21 [facility] (Rec: 08/30/22 11:39 [facility] [id number]) OT- Bed Mobility Assessment Supine to Sit Supine to Sit Assist Contact Guard Assistance OT-Transfer Assessment Sit to and From Stand Sit to and from Stand Contact Guard Assistance Transfers Transfer Ability Contact Guard Assistance Technique Transfer Destination Bed,Chair Transfer Technique Stand Step Pivot Devices Transfer Assistive Devices Gait Belt,Front Wheeled Walker Comments Mobility Comments CGA to assist to get his trunk upright. Educated on log rolling for bed mobility needs . Pt states can install a bedrail but looking into sleeping in a lift chair for now. SBA with FWW to walk in ght room. BP 110/68 supine, 129/72 sitting, 118/73 standing. Pt states has a fww at home somewhere if needed. OT- Balance Assessment Sitting Balance and Reactions Static Sitting Balance Ability Good Dynamic Sitting Balance Ability Good Standing Balance and Reactions Static Standing Balance Ability Good Dynamic Standing Balance Ability Fair M8 OT- IP Objective Assessments Start: 08/30/22 11:22 Freq: Status: Active Protocol: Document 08/30/22 10:21 [facility] (Rec: 08/30/22 11:39 [facility] [id number]) OT Gross Range of Motion Upper Extremity Range of Motion Assessment Within Functional Limits M9 OT- IP Assessment and Plan Start: 08/30/22 11:22 Freq: Status: Active Protocol: Document 08/30/22 10:21 [facility] (Rec: 08/30/22 11:39 [facility] [id number]) OT Summary Assessment and Plan Potential Rehabilitation Potential Excellent Analytic Complexity at Evaluation Low Summary OT Impairments Pain,Functional Mobility, Dressing,Toileting,Bathing, Toilet Transfers,Shower Transfers Progress Towards Goals Progressing Toward Goals,Safe For Discharge Assessment Summary Pt low complexity and main barrier are pain, and needing use of FWW at this time as first time getting up after sx . Pt has a supportive to assist with his needs. Able to go over equipment needs and OT suggestions of use of urinal at night, where loose clothing, sit for showering needs. Pt looking to go home with assist when medically stable. Goals Dressing Goal Minimal Assistance Toileting Goal Independent Bathing Goal Independent Toilet Transfer Goal Independent Shower Transfer Goal Independent Days to Meet Goals 2 Frequency of Treatment Frequency Of Treatment Once a Day Treatment Plan OT Treatment Plan ADL Training,Functional Mobility,Patient/Family Education,Discharge Planning Discharge Recommendations OT Discharge Recommendations Home with Assistance Transportation Needs at Discharge Private Vehicle
--- NOTE | 2022-08-30 11:03 | CM.DANOTE ---
DCP: Case received, EMR reviewed and met with patient. Introduced self and role. Was able to obtain information regarding patient's baseline activity level prior to surgery. DCP assessment completed with information currently available. Patient is a 72 year old male who admitted yesterday morning to the care of the surgical team. PCP: Dr. Conte. Payer: confirmed: [employer] Medicare. Patient came to the hospital for a surgical procedure. Patient had laparoscopic-assisted signoid colectomy. Patient has history of diverticulitis. Met with patient in his room. He is alert, sitting up in bed. Confirmed that he resides in [place] with his spouse, Sanjuana. Patient works at [employer]. Patient is independent at his baseline. P: DCP to continue to follow. Patient has therapy orders. Spoke to [facility] occupational therapist, who did ok with therapy. Patient should be able to go home when deemed medically stable. Tina Naik RN/Treatment Supervisor Discharge Planning/Care Management CM Discharge Assessment Start: 08/30/22 11:00 Freq: Status: Active Protocol: Document 08/30/22 11:00 (Rec: 08/30/22 11:03 [id number]) Discharge Planning Assessment Assigned Unionmelt Operator Tina Naik RN/Treatment Supervisor Advance Directives? No History Provided By Patient,Medical Record Prior Living Arrangements House Household Members spouse Type of transporation used prior to Drives own vehicle admit Independent with ADL's Yes Is patient alert and oriented? Yes Caregiver for Another No Barriers to Discharge No Discharge Plan Home Transportation Arrangement Spouse Referrals Initiated None needed Whiteboard Updated in Patient Room with Yes name and ext. # of Unionmelt Operator Review Status In Process Next Review Type Continued Stay Review Pre-Anesthesia Assessment Start: 08/21/22 08:42 Freq: Status: Complete Protocol: Document 08/21/22 08:42 CAB (Rec: 08/21/22 09:16 CAB [id number]) Pre-Anesthesia Assessment Preferred Name Juice Patient Information Reviewed Via Phone Assessment Assessment Completed With Patient Primary Care Provider Edi Conte Seen Specialist in Last 12 Months Yes Specialist Seen Remote Recruiter,Emergency,General surgeon,Oncologist Primary Language Wallisian Preferred Language Wallisian Desulphurizer Operator Required No Height 5 ft 10 in Weight 210 lb Body Mass Index (BMI) 30.1 Hearing Ability Normal Visual Assist Glasses Dentition Type Teeth, Natural Present Barriers to Learning None Hx Anesthesia Reactions No Hx Family Anesthesia Reaction No Hx Malignant Hyperthermia No Hx Blood Transfusions No Hx Blood Transfusion Reaction No Anesthesia Review Requested No Financial Representative No alcohol intake current alcohol intake frequency a few times a month Smoking Status Never smoker Substance Use Type does not use Pain Present Pain Reported Comment Abdominal Musculoskeletal Symptoms Joint Pain Patient is completely paralyzed or No completely immobile Mental Status Oriented to own ability Is patient on oxygen? No Does patient have [place]/SOB No Hx Sleep Apnea No CPAP/BIPAP use not prescribed Currently Taking a Beta Apoorva No Hx Chest Pain Yes Hx SOB No Hx Syncope or Dizziness No Anti-Coagulant Therapy No Has a Remote Recruiter Yes: Visit 08/09/[address] Liriano Cardiac Testing Yes: EKG 08/09/22 w/cardiology visit Hx Pacemaker/ICD No Pacemaker Rep Required? No Comment Cardiac records scanned Diet Type At Home Regular Dysphagia No Gastrointestinal Symptoms Abdominal Pain Urinary Catheter Present No Hx Urinary Self Catheterization No Diabetes No Presence of External or Internal Medical No Devices Received a COVID vaccine? Yes Received all doses? No Marital Status Lives With spouse Current Living Arrangements House Support System Spouse Does the Patient Have Assistance After Yes Surgery Patient Discharge Plan Description Return Home Comment Pt advised 3-5 day length of stay per surgeon Feels Safe in Current Environment Yes Been Physically Hurt or Threatened By a No Person in Current Environment Do you have thoughts of harming yourself None or others? Are you currently considering suicide? No Do you have a plan to hurt yourself or No Plan others? Do You Have Any Spiritual Beliefs That No May Affect Your HC Choices? Do You Have Any Cultural Practices That No May Affect Your HC Choices? Comment Alevism Who Can We Speak to About Patient's Care Family, friends Identifying Code for Release of Patient Declines to issue Information Health Care Proxy/Next of Kin Sanjuana Reyez () Health Care Proxy Emergency Contact Name Sanjuana Reyez () Emergency Contact Advance Directives? No Power of Heel Sander No PAC Instructions Medications to take/avoid,No ETOH/petroleum product on skin DOS,NPO,Pre-op antibiotic,Pre -surgical wash,Sensory aids, Sturdy shoes/comfortable clothes,Do not bring valuables and remove jewelry
--- NOTE | 2022-08-30 11:35 | PT.IIE ---
Current Diagnoses Diverticulitis of intestine, part unspecified, without perforation or abscess without bleeding (08/29/22) Surgery Performed Operation Date: 08/29/22 10:45 Actual Procedures p Laparoscopic Sigmoid Colectomy - Burak Arambula MD Surgical History (Last Reviewed 08/23/22 @ 11:40 by Burak Arambula MD) History of appendectomy History of carpal tunnel surgery of right wrist History of colonoscopy History of extraction of renal calculus History of inguinal hernia repair History of umbilical hernia repair Hx of arthroscopy of left knee Hx of arthroscopy of right knee Medical History (Last Reviewed 08/23/22 @ 22:46 by Glenroy Joyce DO) CKD (chronic kidney disease) stage 3, GFR 30-59 ml/min CLL (chronic lymphocytic leukemia) Gout History of kidney stones HTN (hypertension) Physical Therapy Inpatient Evaluation/Re-Eval M1 PT/OT-IP Prior Functional Status Start: 08/29/22 16:16 Freq: NEEDED Status: Active Protocol: Document 08/30/22 11:35 AB (Rec: 08/30/22 13:48 AB [id number]) Medical Review Prior Functional Status Medical History Reviewed Yes Communication able to make needs known Mobility and Gait pt stated that he is independent with all mobilities and ambulation without AD Social History Household Members spouse Living Arrangements House Number of Floors (Floors) 3 or More Floors Number of Stairs To Enter/Railing? 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 Additional Social History Comment pt works at [employer] M2 PT-IP Current Condition Start: 08/29/22 16:16 Freq: NEEDED Status: Active Protocol: Document 08/30/22 11:35 AB (Rec: 08/30/22 13:48 AB [id number]) Physical Therapy Current Condition Current Condition Evaluation Date 08/30/22 Treatment Diagnosis s/p colectomy; difficulty in walking Onset Date 08/29/22 M3 PT-IP Subjective Start: 08/29/22 16:16 Freq: NEEDED Status: Active Protocol: Document 08/30/22 11:35 AB (Rec: 08/30/22 13:48 AB [id number]) Subjective Physical Therapy Visit Type Type Initial Evaluation Visit Start Time 11:35 Visit Stop Time 12:10 Total Visit Minutes 35 Number of POST OFFICE MANAGER Visits 0 Physical Therapy Visit Comments Patient Comments agreeable to do PT Therapy Pain Assessment Pain When Pain Assessed At Rest Pain Present Pain Present Pain Reported Location abdomen Intensity 6 Scale Used Numeric (0 - 10) Pain Management Techniques Distraction,Modification of Treatment,Re-positioning, Timing of Activity with Medications M4 PT-IP Mobility and Gait Start: 08/29/22 16:16 Freq: NEEDED Status: Active Protocol: Document 08/30/22 11:35 AB (Rec: 08/30/22 13:48 AB [id number]) PT-Bed Mobility Assessment Rolling Type of Rolling Log Rolling Level of Assist Standby Assistance Supine to Sit Supine to Sit Standby Assistance Sit to Supine Sit to Supine Standby Assistance PT-Transfer Assessment Sit to and From Stand Sit to and from Stand Standby Assistance,1 Person Assistance,Use of Upper Extremities Equipment Transfer Assistive Device Gait Belt,Front Wheeled Walker Orthotic/Prosthetic Devices or Brace: No Transfers Transfer Destination Bed,Chair Transfer Technique ambulated Transfer Ability Level of Assist Standby Assistance,Contact Guard Assistance,1 Person Assistance,Use of Upper Extremities Comments Mobility Comments pt sitting on the chair and agreed to do PT. pt is aware of his abdominal precautions. completed sit to stand from the chair SBA and ambulated in room using FWW ~ 125 ft SBA to CGA. pt sat on EOB and demonstrated bed mobility log roll SBA. pt agreed to do stairs. sit to stand from EOB SBA and ambulated in the hallway using FWW SBA to occasional CGA especially towards end of ambulation with c/o slight tiredness. pt completed up/ down steps using L rail CGA and repeated using R rail CGA. assisted pt back to his room. ambulated ~ 20 ft without AD to chair CGA. presents with unsteady antalgic gait but without LOB. positioned on the chair and set up for lunch . call light within reach. Gait Assessment Gait Gait Assistance Required: Standby Assistance,Contact Guard Assist,1 Person Assist Distance (Feet) 125 Able to Maintain Weight Bearing Status Yes During Gait Assistive Devices Assistive Device None,Gait Belt,Front Wheeled Walker Orthotic/Prosthetic Devices or Brace: No Gait Deviations General Gait Pattern Decreased Stride Length, Decreased Feet Clearance Factors Limiting Gait Function Factors Limiting Gait Function Decreased Activity Tolerance, Decreased Strength,Difficulty Following Directions,Limited Range of Motion,Pain,Poor Balance Stair Climbing Assessment Evaluation Level of Assist On Stairs Contact Guard Assistance Devices Stair Climbing Assistive Devices Left Railing,Right Railing Technique/Endurance Stair Climbing Direction Ascend and Descend Stair Climbing Technique Step Over Step Number of Steps Climbed 3 Query Text: Stair Climbing Set # Repetitions (reps) 2 Comments Stair Climbing Comments please refer to mobility section for details PT-Balance Assessment Sitting Balance and Reactions Static Sitting Balance Ability Normal Dynamic Sitting Balance Ability Normal Standing Balance and Reactions Static Standing Balance Ability Good Dynamic Standing Balance Ability Fair Device Used without AD M5 PT-IP Objective Assessments Start: 08/29/22 16:16 Freq: NEEDED Status: Active Protocol: Document 08/30/22 11:35 AB (Rec: 08/30/22 13:48 [id number]) Orientation Orientation/Cognition Level of Alertness Alert Orientation Name,Age,Birthday,Month,Date, Year,Day of Week,Place, Situation Language Function Ability No Deficits Noted Safety Awareness Understands Safety Issues Memory Description No Deficits Noted Gross Range of Motion Lower Extremity ROM Assessment Within Functional Limits Strength Lower Extremity Strength Assessment Within Functional Limits Coordination Assessment Gross Coordination Gross Coordination WNL Sensation Assessment Sensation Gross Sensation WNL Muscle Tone Muscle Tone WNL Yes M6 PT-IP Treatment Start: 08/29/22 16:16 Freq: NEEDED Status: Active Protocol: Document 08/30/22 11:35 AB (Rec: 08/30/22 13:48 AB [id number]) Physical Therapy Treatment Education Education Provided Precautions,Weight Bearing Status,Post-Op Packet,Safety M7 PT-IP Assessment and Plan Start: 08/29/22 16:16 Freq: NEEDED Status: Active Protocol: Document 08/30/22 11:35 AB (Rec: 08/30/22 13:48 [id number]) PT Summary Assessment and Plan Potential Rehabilitation Potential Good Status of Condition at Evaluation Stable Summary Impairments Pain,ROM,Strength,Balance, Coordination,Sensation,Tone, Cognition,Bed Mobility, Transfers,Gait,Activity Tolerance Assessment Summary pt s/p colectomy POD1. pt requiring SBA to CGA with mobility but with decrease activity tolerance affecting level of independence. Recommending use of FWW for long distance/uneven surface ambulation for safety at this time. will continue to assess progress. pt plans to go home and spouse to assist him when needed. Goals Bed Mobility Goal Independent Transfer Goal Independent,Front Wheeled Walker Gait Goal Independent,Front Wheel Walker Gait Distance 300 Other Goals improve transfers and ambulation without AD 300 ft mod I up/down 8 steps L rail + 8 steps R rail mod I Days to Meet Goals 10 Frequency of Treatment Frequency Of Treatment Once a Day Treatment Plan Physical Therapy Treatment Plan Bed Mobility Training,Transfer Training,Gait Training, Therapeutic Exercise,Balance Retraining,Post Op Education, Discharge Planning,Hot or Cold Pack,Neuromuscular Re-ed, Coordination Retraining,Manual Therapy Precautions Abdominal Surgery Precautions Log Roll,Lifting Restrictions, Gait Belt above Incisional Area Recommendations To Nursing Amount of Assist Needed 1 Person Assist Discharge Recommendations PT Discharge Recommendations Home with Assistance Transportation Needs at Discharge Private Vehicle
[2022-08-30] MEDS: buPROPion XL 150 MG TAB 300 MG PO (17:59)
[2022-08-30] MEDS: LOSARTAN 50 MG TABLET 100 MG PO (20:52)
[2022-08-30] MEDS: allopurinoL 100 MG TABLET 200 MG PO (20:53)
[2022-08-30] MEDS: TAMSULOSIN 0.4 MG CAPSULE PO (20:53)
[2022-08-31] VITALS: BP 125/73; PULSE 69; RESP 20; TEMP 36.2; O2SAT 94
[2022-08-31] MEDS: ACETAMINOPHEN 325 MG TABLET 650 MG PO ×2 (08:39→15:37)
[2022-08-31] MEDS: IBUPROFEN 600 MG TABLET PO ×2 (08:39→15:39)
[2022-08-31 08:40] VITALS: BP 119/73; PULSE 79; RESP 18; TEMP 36.8; O2SAT 91
[2022-08-31] MEDS: ENOXAPARIN 40 MG/0.4 ML SYRINGE SUBCUT (08:40)
[2022-08-31] MEDS: OXYCODONE IR 5 MG TABLET PO ×2 (08:40→15:37)
--- NOTE | 2022-08-31 08:43 | OT.IPNOTE ---
Pt looking to go home today and no further OT needs. Pt states does have a walker at home that he can use as needed especially for longer distances and uneven terrain.
--- NOTE | 2022-08-31 09:00 | PT.IPTN ---
Current Diagnoses Diverticulitis of intestine, part unspecified, without perforation or abscess without bleeding (08/29/22) Surgery Performed Operation Date: 08/29/22 10:45 Actual Procedures p Laparoscopic Sigmoid Colectomy - Burak Arambula MD Physical Therapy Treatment Note M2 PT-IP Current Condition Start: 08/29/22 16:16 Freq: NEEDED Status: Active Protocol: Document 08/30/22 11:35 AB (Rec: 08/30/22 13:48 AB [email or web address]) Physical Therapy Current Condition Current Condition Evaluation Date 08/30/22 Treatment Diagnosis s/p colectomy; difficulty in walking Onset Date 08/29/22 M3 PT-IP Subjective Start: 08/29/22 16:16 Freq: NEEDED Status: Active Protocol: Document 08/31/22 09:14 TS (Rec: 08/31/22 09:31 TS [id number]) Subjective Physical Therapy Visit Type Type Treatment Note Visit Start Time 09:00 Visit Stop Time 09:13 Total Visit Minutes 13 Number of ELECTRICAL AND INSTRUMENT ENGINEER Visits 1 Physical Therapy Visit Comments Patient Comments agreeable to do PT M4 PT-IP Mobility and Gait Start: 08/29/22 16:16 Freq: NEEDED Status: Active Protocol: Document 08/31/22 09:14 TS (Rec: 08/31/22 09:31 TS [id number]) PT-Bed Mobility Assessment Rolling Type of Rolling Log Rolling Level of Assist Standby Assistance Supine to Sit Supine to Sit Standby Assistance Sit to Supine Sit to Supine Standby Assistance Scooting Scooting to Edge of Bed Standby Assistance PT-Transfer Assessment Sit to and From Stand Sit to and from Stand Standby Assistance,1 Person Assistance,Use of Upper Extremities Equipment Transfer Assistive Device None,Gait Belt Orthotic/Prosthetic Devices or Brace: No Transfers Transfer Destination Bed,Chair Transfer Technique ambulated Comments Mobility Comments Pt found resting in bed, agreeable to PT. Pt demonstrated good carryover of logroll and awareness with abdominal precautions with bed mobility. He performed sit to stand x1 SBA with no AD, slow /cautious to stand. He progressed his gait to ~250' SBA with no AD, x1 LOB required CGA for stability. He performed stairs x9 with single rail sidestepping up stairs step over step, no buckling or LOB. Provided education to pt on use of AD at home due to some stability issues with gait, pt reports at baseline he has balance issues. Pt ambualted back to bed, call light nearby, all needs met. Gait Assessment Gait Gait Assistance Required: Standby Assistance,Contact Guard Assist,1 Person Assist Distance (Feet) 250 Able to Maintain Weight Bearing Status Yes During Gait Assistive Devices Assistive Device None,Gait Belt Orthotic/Prosthetic Devices or Brace: No Gait Deviations General Gait Pattern Decreased Stride Length, Decreased Feet Clearance Factors Limiting Gait Function Factors Limiting Gait Function Decreased Activity Tolerance, Decreased Strength,Limited Range of Motion,Pain,Poor Balance Comments Gait Comments See mobility comments. Stair Climbing Assessment Evaluation Level of Assist On Stairs Standby Assistance Devices Stair Climbing Assistive Devices Left Railing,Right Railing Technique/Endurance Stair Climbing Direction Ascend and Descend Stair Climbing Technique Step Over Step Number of Steps Climbed 9 Comments Stair Climbing Comments See mobility comments. PT-Balance Assessment Sitting Balance and Reactions Static Sitting Balance Ability Normal Dynamic Sitting Balance Ability Normal Standing Balance and Reactions Static Standing Balance Ability Good Dynamic Standing Balance Ability Fair Device Used without AD M5 PT-IP Objective Assessments Start: 08/29/22 16:16 Freq: NEEDED Status: Active Protocol: Document 08/30/22 11:35 AB (Rec: 08/30/22 13:48 AB [id number]) Orientation Orientation/Cognition Level of Alertness Alert Orientation Name,Age,Birthday,Month,Date, Year,Day of Week,Place, Situation Language Function Ability No Deficits Noted Safety Awareness Understands Safety Issues Memory Description No Deficits Noted Gross Range of Motion Lower Extremity ROM Assessment Within Functional Limits Strength Lower Extremity Strength Assessment Within Functional Limits Coordination Assessment Gross Coordination Gross Coordination WNL Sensation Assessment Sensation Gross Sensation WNL Muscle Tone Muscle Tone WNL Yes M6 PT-IP Treatment Start: 08/29/22 16:16 Freq: NEEDED Status: Active Protocol: Document 08/31/22 09:14 TS (Rec: 08/31/22 09:31 TS [id number]) Physical Therapy Treatment Education Education Provided Precautions,Weight Bearing Status,Post-Op Packet,Safety M7 PT-IP Assessment and Plan Start: 08/29/22 16:16 Freq: NEEDED Status: Active Protocol: Document 08/31/22 09:14 TS (Rec: 08/31/22 09:31 TS [id number]) PT Summary Assessment and Plan Potential Rehabilitation Potential Good Summary Impairments Pain,ROM,Strength,Balance, Coordination,Sensation,Tone, Cognition,Bed Mobility, Transfers,Gait,Activity Tolerance Progress Towards Goals Progressing Toward Goals Assessment Summary Pt is progressing well with his mobility. He is SBA for all bed mobility and sit to stands with no AD. He progressed his ambulation to ~ 250' SBA, did have x1LOB requiring CGA for stability. He progressed his stairs to x9 with no buckling or LOB and use of single rail. PT is recommending return home with assist from spouse. Goals Bed Mobility Goal Independent Transfer Goal Independent,Front Wheeled Walker Gait Goal Independent,Front Wheel Walker Gait Distance 300 Other Goals improve transfers and ambulation without AD 300 ft mod I up/down 8 steps L rail + 8 steps R rail mod I Days to Meet Goals 10 Frequency of Treatment Frequency Of Treatment Once a Day Treatment Plan Physical Therapy Treatment Plan Bed Mobility Training,Transfer Training,Gait Training, Therapeutic Exercise,Balance Retraining,Post Op Education, Discharge Planning,Hot or Cold Pack,Neuromuscular Re-ed, Coordination Retraining,Manual Therapy Precautions Abdominal Surgery Precautions Log Roll,Lifting Restrictions, Gait Belt above Incisional Area Recommendations To Nursing Amount of Assist Needed Standby Assistance Discharge Recommendations PT Discharge Recommendations Home with Assistance Transportation Needs at Discharge Private Vehicle
--- NOTE | 2022-08-31 09:52 | PC.NURSE ---
Patients ml incision and smaller incisions are all cdi with durmobond. Patient given 5mg of oxycodone this morning. He just walked with physical therapy and is resting now.
--- NOTE | 2022-08-31 15:53 | CM.DPC ---
DCP Discharge Home Per RN, Surgeon has not rounded yet but pt doing well post lap truman and plan is likely d/c home tonight via spouse POV when she gets off work around 1800. Per PT/OT, pt ambulating well and recommend safe d/c home with assist and pt confirms he is feeling good about discharging home today. Plan: SW to follow for plan of d/c home via spouse POV tonight if he remains medically stable. No further SW needs at this time. MAI Palmer
--- NOTE | 2022-08-31 17:51 | P.DS_ITS ---
History of Present Illness History of Present Illness Date Patient Seen: 08/31/22 Time Patient Seen: 17:00 Chief complaint: Laparoscopically Assisted Colectomy Narrative: Mr. Lezama returns today for a preoperative appointment prior to laparoscopic sigmoid colectomy for benign disease.? In brief he is a 72-year-old male with a history of chronic lymphocytic leukemia who has had numerous episodes of uncomplicated diverticulitis and essentially smoldering disease.? There is a question as to whether he is able to entirely clear his disease and whether he is at elevated risk of complication from diverticular disease given that he is on chemotherapy for CLL.? Today he is overall feeling fairly well mild discomfort in the left lower quadrant.? I have spoken with Dr. Stack of Oncology who recommends holding? Zanubruitinib for one week prior to surgery and 1 week postop.? Overall today he is feeling fairly well.? Currently tolerating diet without fever or significant abdominal pain. Discharge Providers Provider Date of admission: 08/29/22 09:10 Discharge Date: 08/31/22 Primary care physician: Edi Conte MD Consults: 08/29/22 14:37 Consult to Discharge Planning Routine Comment: Consult to Occupational Therapy Evaluate & Treat Comment: Physician Instructions: Evaluate and treat Consult to Physical Therapy Evaluate & Treat Comment: Physician Instructions: Evaluate and Treat Discharge provider: Kathryn Meza MD Summary Hospital Course Discharge Diagnosis: s/p Laparoscopic-assisted sigmoid colectomy for diverticulitis Hospital Course: 72-year-old man history of chronic lymphocytic leukemia who has recurrent episodes of uncomplicated diverticulitis.? 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 He underwent Laparoscopic-assisted sigmoid colectomy which went well. On postop day 1 he was started on a clear liquid diet and advance as tolerated. His pain was controlled with oral pain medications and on postoperative day 2 he was doing well and was ready for discharge. Status at Discharge Cognitive/behavioral status at discharge: oriented Functional status at discharge: independent ambulation Exam Vital Signs (past 8 hours): - 08/31/22 12:00 08/31/22 16:00 Oxygen Delivery Method Room Air Room Air Oxygen Delivery Method Room Air Oxygen Flow Rate 0 Narrative Exam Narrative: Awake alert oriented in no acute distress healthy appearing The wound is clean dry and intact. Abdomen is appropriately tender Objective Labs 08/30/22 05:56 08/30/22 05:56 [facility] Medical History CKD (chronic kidney disease) stage 3, GFR 30-59 ml/min CLL (chronic lymphocytic leukemia) Gout History of kidney stones HTN (hypertension) Surgical History History of appendectomy History of carpal tunnel surgery of right wrist History of colonoscopy History of extraction of renal calculus History of inguinal hernia repair History of umbilical hernia repair Hx of arthroscopy of left knee Hx of arthroscopy of right knee Family History Mother Myocardial infarct Son Myocardial infarct Father Dementia Social History marital status: household members: spouse lives independently: Yes occupational status: employed Smoking Status: Never smoker alcohol intake: current substance use type: does not use Discharge Assessment & Plan Assessment and Plan Assessment: Postoperative day 2 status post laparoscopic assisted sigmoid colectomy doing well Plan of Treatment: Discharge home today. His discharge medications have already been sent in he can resume his home medications and follow-up as arranged with Dr. Arambula. His questions were answered and he was encouraged to call the answering service with any questions or concerns this weekend. Discharge Plan Discharge Plan Patient Disposition: Home Discharge orders & Medications Prescriptions: New oxycodone 5 mg tablet 5 mg PO Q6H PRN (Reason: pain) Qty: 20 0RF Continued ibuprofen [Advil Liqui-Gel] 200 MG capsule 200 mg PO Q DAY PRN (Reason: Pain (Scale Score 1-3)) Qty: 0 Patient Comments: A couple weeks ago Fiber (psyllium husk-sugar) 3.4 gram/7 gram powder 1 tbsp PO BID Qty: 822 0RF Rx Instructions: take daily to prevent diverticulitis. Sutab 1.479-0.188- 0.225 gram tablet See Rx Instructions PO PER PKG DIR Qty: 24 0RF Rx Instructions: Take as directed by Physician neomycin 500 mg tablet 1 g PO TID Qty: 6 0RF Rx Instructions: administer at 1 PM, 2 PM, and 10 PM the day prior to surgery metronidazole 500 mg tablet 500 mg PO TID Qty: 3 0RF Rx Instructions: administer at 1 PM, 2 PM, and 10 PM the day prior to surgery bupropion HCl [Wellbutrin XL] 300 mg Tablet Extended Release 24 Hr 300 mg PO QPM allopurinol 100 mg Tablet 200 mg PO BEDTIME tamsulosin [Flomax] 0.4 mg Capsule 0.4 mg PO BEDTIME losartan 100 mg Tablet 100 mg PO BEDTIME zanubrutinib 80 mg Capsule 160 mg PO BID Qty: 120 3RF Rx Instructions: Take 2 tablets in the morning and 2 tablets in evening Follow up/Referrals: Kathryn Meza MD [Physician] - (this is the office. follow up with Tyesha in 10-14 days ) Edi Conte MD [Primary Care Provider] - Diet/Activity/Treatments Diet: Diet as Tolerated and Regular Skin/Wound/Dressing Care Report to your healthcare provider any signs of infection, such as:: chills, fever, night sweats and increased pain Visit Report/Discharge Packet Instructions: DI for Colectomy, DI for Laparoscopy, Oxycodone, [facility]: Wound Care Stand Alone Forms: Patient Portal/API, Stroke Signs & Symptoms Discharge Data Primary Care Provider: Edi Conte Discharges patient from system. Discharge Date/Time: 08/31/22 18:24 Quality VTE Deep Vein Thrombosis/Pulmonary Embolism Present on Admission: No
== END 2022-08-31 18:24 | disposition home or self-care (01) | DRG 330 ==
PROVIDERS: Admitting Provider Surgery; Family Provider Family Medicine; PCP Internal Medicine; Referring Provider Surgery; Visit Provider Surgery
PROC: 0DTE0ZZ Resection of Large Intestine, Open Approach (ICD-10-PCS; principal; 2022-08-29 10:45)
DX: K57.32 Diverticulitis of large intestine without perforation or abscess without bleeding (principal); C91.10 Chronic lymphocytic leukemia of B-cell type not having achieved remission; D84.81 Immunodeficiency due to conditions classified elsewhere; M10.9 Gout, unspecified; I10 Essential (primary) hypertension; Z20.822 Contact with and (suspected) exposure to COVID-19
CPT/HCPCS: 36415; 44204; 80048; 82962; 85007; 85025; 97116; 97161; 97166; J1100; J1170; J1650; J1956; J2405; J2704; J3010; J3490

== ENCOUNTER 2022-09-13 17:48 | Emergency (ER) | payer MEDICARE, SELFPAY ==
[2022-08-29 15:17] VITALS: BMI 28.7
[2022-09-13 17:53] VITALS: PULSE 69; RESP 18; TEMP 36.4; O2SAT 98; BMI 27.2
[2022-09-13 17:58] VITALS: BP 152/92
[2022-09-13 18:14] LABS: Hematocrit 40.3 % (41-53); Hemoglobin 13.3 g/dL (13.5-17.5); Mean Corpuscular HGB Conc 33.1 % (30-36); Mean Corpuscular Hemoglobin 32.3 PG (26-34); Mean Corpuscular Volume 97.5 fL (80-100); Platelet Count 312 X10^3/uL (150-400); Red Blood Cell Count 4.13 X10^6/uL (4.5-5.9); Red Cell Distribution Width 14.3 % (11.6-14.8)
[2022-09-13 18:18] LABS: Add Manual Diff / Slide Review YES; White Blood Cell Count 146.9 X10^3/uL (4.5-11.0)
[2022-09-13 18:19] LABS: Neutrophils Absolute Manual 8814 /uL (3000-5900); RBC Morphology Normal Morphology; Smudge Cells 2+; Total Cells Counted 100
[2022-09-13 18:22] LABS: BUN Creatinine Ratio 10.8 (6-22); Blood Urea Nitrogen 21 mg/dL (9-20); Calcium 9.2 mg/dL (8.4-10.2); Carbon Dioxide 24 mmol/L (22-32); Chloride 108 mmol/L (98-107); Estimated Glomerular Filt Rate 36 mL/min (>60); Glucose 97 mg/dL (80-110); HEMOLYSIS 17 (0-50); Potassium 5.2 mmol/L (3.4-5.1); Sodium 141 mmol/L (137-145)
--- NOTE | 2022-09-13 18:25 | ED_ITS ---
HPI - Recheck/Abnormal Lab/Rx General Chief Complaint: Recheck/Abnormal Lab/Rx Stated Complaint: very high potassium, sent by MD Time Seen by Provider: 09/13/22 18:25 Source: patient Mode of arrival: Ambulatory Limitations: no limitations History of Present Illness HPI narrative: This is a 72-year-old male with CLL and known diverticulitis with recent sigmoid colectomy. Patient presents with outpatient labs that showed an elevated potassium at 6.2 but was noted to be hemolyzed. Patient states he is asymptomat ic. He states this was a regular blood draw from his oncologist. White count is also 146 which he states is improved from his normal. Patient states no symptoms, he has not had any chest pain, no shortness of breath, no lightheadedness no dizziness, no nausea or vomiting, no diarrhea constipation. States he saw Dr. Irena abernathy for evaluation after a sigmoidectomy and his incision has been healing well. He is no other complaints currently. He does take losartan daily. Related Data Home Medications Medication Instructions Recorded Confirmed ibuprofen 200 mg capsule (Advil 200 mg PO Q DAY PRN Pain (Scale 05/03/16 07/0 08/31 Liqui-Gel) Score 1-3) ##0 bupropion HCl 300 mg 24 hr tablet, 300 mg PO QPM 08/01/17 09/13/22 extended release (Wellbutrin XL) allopurinol 100 mg tablet 200 mg PO BEDTIME 04/05/20 09/13/22 losartan 100 mg tablet 100 mg PO BEDTIME 05/23/22 09/13/22 tamsulosin 0.4 mg capsule (Flomax) 0.4 mg PO BEDTIME 05/23/22 09/13/22 Previous Rx's Medication Instructions Recorded zanubrutinib 80 mg capsule 160 mg PO BID #120 caps 06/19/22 metronidazole 500 mg tablet 500 mg PO TID #3 tabs 08/10/22 neomycin 500 mg tablet 1 g PO TID 3 doses #6 tabs 08/10/22 sodium sul 1.479 gram-potas ch See Rx Instructions PO PER PKG DIR 08/10/22 0.188 gram-magnes sul 0.225 gram #24 tabs tablet (Sutab) psyllium husk (with sugar) 3.4 1 tbsp PO BID #822 grams 06/03/23 gram/7 gram oral powder (Fiber (psyllium husk-sugar)) oxycodone 5 mg tablet 5 mg PO Q6H PRN pain #20 tabs 08/30/22 Allergies Allergy/AdvReac Type Severity Reaction Status Date / Time penicillin G Allergy Severe ANAPHALATIC Verified 09/13/22 17:58 SHOCK codeine Allergy Unknown REALLY Verified 09/13/22 17:58 SICK WITH NAUSEA. lisinopril AdvReac Intermediate Cough Verified 09/13/22 17:58 Review of Systems Review of Systems ROS Unobtainable: All systems reviewed & are unremarkable except as noted in HPI and below Patient History Medical History CKD (chronic kidney disease) stage 3, GFR 30-59 ml/min CLL (chronic lymphocytic leukemia) Gout History of kidney stones HTN (hypertension) Surgical History History of appendectomy History of carpal tunnel surgery of right wrist History of colonoscopy History of extraction of renal calculus History of inguinal hernia repair History of umbilical hernia repair Hx of arthroscopy of left knee Hx of arthroscopy of right knee Family History Mother Myocardial infarct Son Myocardial infarct Father Dementia Social History marital status: household members: spouse lives independently: Yes occupational status: employed Smoking Status: Never smoker alcohol intake: current substance use type: does not use Smoking Status: Never smoker alcohol intake frequency: a few times a month Substance Use Type: does not use Exam Narrative Exam Narrative: GENERAL: Alert and oriented x three, male in no acute distress HEENT: Head normocephalic, atraumatic, EOMI, pupils reactive, face symmetric, moist mucous membranes NECK: Supple, full range of motion CARDIOVASCULAR: Regular rate and rhythm without murmurs, rubs or gallops. RESPIRATORY: Breath sounds equal bilaterally, no wheezes rales or rhonchi. ABDOMEN: Soft, nontender. Normoactive bowel sounds all 4 quadrants. No guarding or rebound, rigidity, no mass, patient has midline incisions of the lower abdomen as well as 3 small horizontal incisions that are clean dry and intact small amount of scabbing that have no warmth, erythema or other changes and appear to be healing well. : No CVA tenderness EXTREMITIES: Normal range of motion, no clubbing or edema. Neurovascularly intact NEUROLOGICAL: Cranial nerves II through XII grossly intact. Moving all extremities SKIN: Warm, dry, no petechiae, no rashes or lesions appreciated other than above. Initial Vital Signs Initial Vital Signs: Vital Signs Temperature 97.6 F 09/13/22 17:53 Pulse Rate 69 09/13/22 17:53 Respiratory Rate 18 09/13/22 17:53 Pulse Oximetry 98 09/13/22 17:53 Oxygen Delivery Method Room Air 09/13/22 17:53 Course Orders Ordered: ED Orders 09/13/22 17:59 EKG-12 Lead Stat 09/13/22 18:00 BMP [Basic Metabolic Panel] Stat Complete Blood Count AUTO DIFF Stat Vital Signs Vital signs: Vital Signs - 8 hr 09/13/22 17:53 09/13/22 17:58 Temperature 97.6 F Pulse Rate 69 Respiratory Rate 18 Blood Pressure 152/92 H Pulse Oximetry 98 Oxygen Delivery Method Room Air MDM - Recheck/Abnormal Lab/Rx Lab Data 09/13/22 18:00 09/13/22 18:00 Labs: Lab Results 09/13/22 09/13/22 Range/Units 18:00 18:00 WBC 146.9 H* (4.5-11.0) X10^3/uL RBC 4.13 L (4.5-5.9) X10^6/uL Hgb 13.3 L (13.5-17.5) g/dL Hct 40.3 L (41-53) % MCV 97.5 (80-100) fL MCH 32.3 (26-34) PG MCHC 33.1 (30-36) % RDW 14.3 (11.6-14.8) % Plt Count 312 (150-400) X10^3/uL Neut % (Auto) Not Reportable Lymph % (Auto) Not Reportable Kinney % (Auto) Not Reportable Eos % (Auto) Not Reportable Baso % (Auto) Not Reportable Lymph # (Auto) Not Reportable Kinney # (Auto) Not Reportable Baso # (Auto) Not Reportable Total Counted 100 Band Neutrophils % 6.0 (3-7) % Lymphocytes % (Manual) 93.0 H (25-45) % Monocytes % (Manual) 1.0 L (2-11) % Neutrophils # (Manual) 8814 H (8080-0091) /uL Smudge Cells 2+ H RBC Morphology Normal morphology Sodium 141 (137-145) mmol/L Potassium 5.2 H D (3.4-5.1) mmol/L Chloride 108 H (98-107) mmol/L Carbon Dioxide 24 (22-32) mmol/L BUN 21 H (9-20) mg/dL Creatinine 1.94 H (0.66-1.25) mg/dL Estimated GFR 36 L (>60) mL/min BUN/Creatinine Ratio 10.8 (6-22) Glucose 97 (80-110) mg/dL Calcium 9.2 (8.4-10.2) mg/dL Imaging Data Chest x-ray: Radiologist's Impression: [address] [address] XRay Report Signed Patient: Jesus Lezama MR#: [id number] : 1950 Acct:[id number] Age/Sex: 72 / M Date of Service: 08/23/22 Loc: ED Accession Number: [id number] ?? Procedure: XR chest 1V Ordering Provider: Glenroy Joyce D.O. PROCEDURE:? XR CHEST 1V ? INDICATIONS:? eval for PNA ? TECHNIQUE:? One view of the chest was acquired.? ? COMPARISON:? [facility], , XR CHEST 1V, 06/04/2022, 16:27. ? FINDINGS:? ? Surgical changes and devices:? None.? ? Lungs and pleura:? Lungs are clear.? No pleural effusions or pneumothorax.? ? Mediastinum:? Mediastinal contours appear normal.? Heart size is normal.? ? Bones and chest wall:? No suspicious bony lesions.? Overlying soft tissues appear unremarkable.? ? IMPRESSION:? No acute process. ? ? Dictated by: Lisseth Martins M.D. on 08/23/2022 at 19:32 ? ? Approved by: Lisseth Martins M.D. on 08/23/2022 at 19:32?? ECG Data Attestation: I personally reviewed and interpreted this ECG as follows: Prior ECG tracings: available for review Interpretation: Sinus rhythm with premature atrial complexes. Rate of 65 [place] 156 QRS is 68 and QTC of 403. No acute ST changes. MDM Narrative Medical decision making narrative: This is a 72-year-old male who presents with complaint of elevated potassium on outpatient labs. Outpatient labs were noted to be hemolyzed repeat shows 5.2, creatinine is 1.94 slightly bumped up from 1.7 but up to 1.8 in the past, white count is 146 which he states is improved from prior. Patient has currently no symptoms. Discussed can continue home medications he has follow-up with his oncologist in the short term with plan for repeat outpatient labs. Discharge Plan Departure Patient Disposition: Home Clinical Impression: Chronic kidney disease (CKD) Activity Restrictions/Additional Instructions: Your potassium today is 5.2 which is more appropriate and your previous lab draw showed that the potassium was hemolyzed. Creatinine is slightly elevated at 1.94 please follow up with your physician about this. Please return if you have new or worsening or concerning symptoms. Prescriptions: No Action ibuprofen [Advil Liqui-Gel] 200 MG capsule 200 mg PO Q DAY PRN (Reason: Pain (Scale Score 1-3)) Qty: 0 Patient Comments: A couple weeks ago Fiber (psyllium husk-sugar) 3.4 gram/7 gram powder 1 tbsp PO BID Qty: 822 0RF Rx Instructions: take daily to prevent diverticulitis. Sutab 1.479-0.188- 0.225 gram tablet See Rx Instructions PO PER PKG DIR Qty: 24 0RF Rx Instructions: Take as directed by Physician neomycin 500 mg tablet 1 g PO TID Qty: 6 0RF Rx Instructions: administer at 1 PM, 2 PM, and 10 PM the day prior to surgery metronidazole 500 mg tablet 500 mg PO TID Qty: 3 0RF Rx Instructions: administer at 1 PM, 2 PM, and 10 PM the day prior to surgery bupropion HCl [Wellbutrin XL] 300 mg Tablet Extended Release 24 Hr 300 mg PO QPM allopurinol 100 mg Tablet 200 mg PO BEDTIME tamsulosin [Flomax] 0.4 mg Capsule 0.4 mg PO BEDTIME losartan 100 mg Tablet 100 mg PO BEDTIME zanubrutinib 80 mg Capsule 160 mg PO BID Qty: 120 3RF Rx Instructions: Take 2 tablets in the morning and 2 tablets in evening oxycodone 5 mg tablet 5 mg PO Q6H PRN (Reason: pain) Qty: 20 0RF Referrals: Edi Conte MD [Primary Care Provider] - Stand Alone Forms: Patient Portal/API
== END 2022-09-13 18:47 | disposition home or self-care (01) ==
PROVIDERS: Emergency Medicine; Emergency Provider Emergency Medicine; Family Provider Family Medicine; PCP Internal Medicine
DX: N18.9 Chronic kidney disease, unspecified (principal); I49.1 Atrial premature depolarization; C91.10 Chronic lymphocytic leukemia of B-cell type not having achieved remission
CPT/HCPCS: 36415; 80048; 80053; 85007; 85025; 93005; 93010; 99283; 99284

== ENCOUNTER 2024-03-30 17:20 | Emergency (ER) | payer MEDICARE, SELFPAY ==
[2022-08-29 15:17] VITALS: BMI 28.7
[2024-03-30] VITALS (13 sets, daily range): BP systolic 143–196; BP diastolic 80–95; PULSE 50–69; RESP 17–26; TEMP 37.3; O2SAT 94–99; BMI 30.1
--- NOTE | 2024-03-30 17:27 | DI.RAD.S_ITS ---
PROCEDURE: XR CHEST 1V INDICATIONS: chest pain TECHNIQUE: One view of the chest was acquired. COMPARISON: [facility], CR, XR CHEST 1V, 08/23/2022, 19:12. [facility], CR, XR CHEST 1V, 06/04/2022, 16:27. FINDINGS: Surgical changes and devices: None. Lungs and pleura: Lungs are clear. No pleural effusions or pneumothorax. Mediastinum: Mediastinal contours appear normal. Heart size is normal. Bones and chest wall: No suspicious bony lesions. Overlying soft tissues appear unremarkable. IMPRESSION: No acute cardiopulmonary abnormality is seen. Dictated by: Brant Mari M.D. on 03/30/2024 at 17:55 Approved by: Brant Mari M.D. on 03/30/2024 at 17:55
--- NOTE | 2024-03-30 17:29 | EKG_ITS ---
[address] [address] [place] [address] Test Date: 2024-03-30 Pat Name: Jesus Lezama Department: [facility] Room: Gender: Male Setter Off: REA : 1950 Requested By: Order Number: [id number] Reading MD: Measurements Intervals [place] Rate: 51 P: 24 DC: 154 QRS: -17 QRSD: 74 T: 10 QT: 418 QTc: 385 Interpretive Statements Sinus bradycardia with sinus arrhythmia Minimal voltage criteria for LVH, may be normal variant ( R in aVL )
[2024-03-30 18:42] LABS: Add Manual Diff / Slide Review NO; Basophils Absolute Auto 0 /uL (0-100); Basophils Percent Auto 0.4 % (0-2); Eosinophils Absolute Auto 200 /uL (0-450); Eosinophils Percent Auto 2.2 % (2-4); Hematocrit 42.8 % (41-53); Hemoglobin 14.3 g/dL (13.5-17.5); Lymphocytes Absolute Auto 5100 /uL (1100-4500); Lymphocytes Percent Auto 48.7 % (25-40); Mean Corpuscular HGB Conc 33.5 % (30-36); Mean Corpuscular Hemoglobin 31.4 PG (26-34); Mean Corpuscular Volume 93.9 fL (80-100); Monocytes Absolute Auto 800 /uL (0-900); Monocytes Percent Auto 7.8 % (3-14); Neutrophils Absolute Auto 4300 /uL (1500-7000); Neutrophils Percent Auto 40.9 % (50-75); Platelet Count 178 X10^3/uL (150-400); Red Blood Cell Count 4.56 X10^6/uL (4.5-5.9); Red Cell Distribution Width 14.6 % (11.6-14.8); White Blood Cell Count 10.4 X10^3/uL (4.5-11.0)
[2024-03-30 18:45] LABS: Prothrombin Time 11.6 SECONDS (9.4-12.5)
[2024-03-30 18:47] LABS: PTT Partial Thromboplastin Tim 45 SECONDS (25.1-36.5)
[2024-03-30 18:49] LABS: Alanine Aminotransferase 26 IU/L (<50); Albumin 4.3 g/dL (3.5-5.0); Albumin Globulin Ratio 1.7 (1.0-2.8); Alkaline Phosphatase 115 U/L (38-126); Aspartate Aminotransferase 32 IU/L (17-59); BUN Creatinine Ratio 12.5 (6-22); Bilirubin Total 0.6 mg/dL (0.2-1.3); Blood Urea Nitrogen 20 mg/dL (9-20); Calcium 9.1 mg/dL (8.4-10.2); Carbon Dioxide 22 mmol/L (22-32); Chloride 108 mmol/L (98-107); Creatine Kinase 125 U/L (55-170); Estimated Glomerular Filt Rate 45 mL/min (>60); Globulin 2.5 g/dL (1.7-4.1); Glucose 91 mg/dL (80-110); HEMOLYSIS < 15 (0-50); Lipase 81 U/L (23-300); Magnesium 2.2 mg/dL (1.6-2.3); Sodium 137 mmol/L (137-145); Total Protein 6.8 g/dL (6.3-8.2)
[2024-03-30 19:01] LABS: NT-proBNP (BNP-Adult 18+) 83 pg/mL (<125); Troponin I < 0.012 ng/mL (0.01-0.034)
--- NOTE | 2024-03-30 20:51 | ED.CHESTPAIN ---
HPI - Chest Pain General Chief Complaint: Chest Pain Stated Complaint: Chest pain started late morning Time Seen by Provider: 03/30/24 20:51 Source: patient Mode of arrival: Ambulatory Limitations: no limitations History of Present Illness HPI narrative: 73-year-old male history of CLL, CKD, DVT not on any anticoagulation comes into the ED from home for evaluation of chest pain. States that it started several hours ago, states that he has had symptoms like this in the past he describes it as twitching sensation to his left PAC, also states that he felt some twitching sensation to his left shoulder no trauma no falls states it is completely resolved, he states that he is currently on chemo pills and is following up with all his specialists, states he has not having issues or concerns with this today. He is not complaining of any other symptoms at this time. Does have a manager room that he followed with a about a year ago in [place]. Related Data Home Medications Medication Instructions Recorded Confirmed ibuprofen 200 mg capsule (Advil 200 mg PO Q DAY PRN Pain (Scale 05/03/16 10/04/22 Liqui-Gel) Score 1-3) ##0 bupropion HCl 300 mg 24 hr tablet, 300 mg PO QPM 08/01/17 10/04/22 extended release (Wellbutrin XL) allopurinol 100 mg tablet 200 mg PO BEDTIME 04/05/20 10/04/22 losartan 100 mg tablet 100 mg PO BEDTIME 05/23/22 10/04/22 tamsulosin 0.4 mg capsule (Flomax) 0.4 mg PO BEDTIME 05/23/22 10/04/22 Previous Rx's Medication Instructions Recorded zanubrutinib 80 mg capsule 160 mg (2 x 80 mg) PO BID #120 caps 06/19/22 metronidazole 500 mg tablet 500 mg PO TID #3 tabs 08/10/22 neomycin 500 mg tablet 1 g (2 x 500 mg) PO TID 3 doses #6 08/10/22 tabs sodium sul 1.479 gram-potas ch See Rx Instructions PO PER PKG DIR 08/10/22 0.188 gram-magnes sul 0.225 gram #24 tabs tablet (Sutab) psyllium husk (with sugar) 3.4 1 tbsp PO BID #822 grams 08/11/22 gram/7 gram oral powder (Fiber (psyllium husk-sugar)) Allergies Allergy/AdvReac Type Severity Reaction Status Date / Time penicillin G Allergy Severe ANAPHALATIC Verified 10/04/22 08:56 SHOCK codeine Allergy Unknown REALLY Verified 10/04/22 08:56 SICK WITH NAUSEA. lisinopril AdvReac Intermediate Cough Verified 10/04/22 08:56 Review of Systems Review of Systems Narrative: General: Denies fever, chills, weight loss HEENT: Denies headache, eye drainage, eye irritation, head trauma, sore throat, voice change Cardiovascular: Positive chest pain, denies palpitations, shortness of breath, tachycardia Respiratory: Denies any shortness of breath, cough, wheeze, stridor GI/: Denies any abdominal pain, nausea, vomiting, diarrhea, bright red blood per rectum, melanotic stools, urinary frequency, urinary retention, dysuria, hematuria MSK: Denies any joint pain, muscle pains, swelling Skin: Denies any rashes, lesions, discoloration Neuro: Denies any headache, lightheadedness, dizziness, fainting, weakness Psych: Denies SI/HI Patient History Medical History CKD (chronic kidney disease) stage 3, GFR 30-59 ml/min CLL (chronic lymphocytic leukemia) Gout History of kidney stones HTN (hypertension) Surgical History History of appendectomy History of carpal tunnel surgery of right wrist History of colonoscopy History of extraction of renal calculus History of inguinal hernia repair History of umbilical hernia repair Hx of arthroscopy of left knee Hx of arthroscopy of right knee Family History Mother Myocardial infarct Son Myocardial infarct Father Dementia Social History marital status: household members: spouse lives independently: Yes occupational status: employed Smoking Status: Never smoker alcohol intake: current substance use type: does not use Smoking Status: Never smoker alcohol intake frequency: a few times a month Exam Narrative Exam Narrative: General: Cooperative, comfortable, well-developed, not in acute distress HEENT: Normocephalic, atraumatic, PERRLA, normal sclera, eyelids normal, Neck: Active full range of motion, atraumatic Chest: Normal to inspection, negative crepitus, no overlying erythema ecchymosis Respiratory: Normal respiratory effort, not in acute respiratory distress, clear to auscultation bilaterally negative cough, wheeze, tachypnea, rhonchi, rales Cardiology: Regular rate rhythm negative gallop, murmur, rubs GI/: Normal to inspection, soft, nonrigid, no tenderness to palpation, exam deferred MSK: Full range of active range of motion of all 4 extremities, atraumatic Skin: No rashes lesions noted Neuro: Alert awake oriented x3, moves all 4 extremities spontaneously, cranial nerves intact, able to answer all questions appropriately follows commands appropriately Psych: Cooperative, negative suicidal or homicidal ideations Initial Vital Signs Initial Vital Signs: Vital Signs Pulse Rate 56 L 03/30/24 17:50 Respiratory Rate 18 03/30/24 17:50 Blood Pressure 196/95 H 03/30/24 17:50 Pulse Oximetry 98 03/30/24 17:50 Oxygen Delivery Method Room Air 03/30/24 17:50 Course Orders Ordered: ED Orders 03/30/24 17:27 XR chest 1V Stat EKG-12 Lead Stat 03/30/24 18:25 Complete Blood Count AUTO DIFF Stat Comprehensive Metabolic Panel Stat Lipase Stat Magnesium Stat NT-proBNP (BNP-Adult 18+) Stat PTT Partial Thromboplastin Sanjiv Stat Prothrombin Time INR Stat Troponin & CK Cardiac Panel Stat 03/30/24 20:25 Troponin I Stat Discontinued Medications Aspirin (Aspirin 81 Mg Chew Tab) 324 mg PO NOW ONE Stop: 03/30/24 17:28 Last Admin: 03/30/24 18:24 Dose: Not Given Documented By: MARIANA Vital Signs Vital signs: Vital Signs - 8 hr 03/30/24 17:50 03/30/24 17:57 03/30/24 18:04 Temperature 99.2 F Pulse Rate 56 L 56 L Respiratory Rate 18 18 Blood Pressure 196/95 H Pulse Oximetry 98 Oxygen Delivery Method Room Air 03/30/24 18:32 03/30/24 18:34 03/30/24 18:34 Temperature Pulse Rate 69 54 L Respiratory Rate 20 Blood Pressure 172/89 H Pulse Oximetry 99 Oxygen Delivery Method 03/30/24 19:00 03/30/24 19:01 03/30/24 19:01 Temperature Pulse Rate 52 L 51 L Respiratory Rate 17 19 Blood Pressure 162/84 H Pulse Oximetry 98 Oxygen Delivery Method 03/30/24 19:29 03/30/24 19:30 03/30/24 19:30 Temperature Pulse Rate 51 L 51 L Respiratory Rate 17 17 Blood Pressure 148/81 H Pulse Oximetry 96 97 Oxygen Delivery Method 03/30/24 20:00 03/30/24 20:00 Temperature Pulse Rate 50 L Respiratory Rate 17 Blood Pressure 143/80 H Pulse Oximetry 94 Oxygen Delivery Method MDM - Chest Pain Differential Diagnosis Differential diagnosis: Likely other (ACS, pneumonia, electrolyte abnormality, muscle spasm) Lab Data 03/30/24 18:25 03/30/24 18:25 Labs: Lab Results 03/30/24 Range/Units 18:25 WBC 10.4 (4.5-11.0) X10^3/uL RBC 4.56 (4.5-5.9) X10^6/uL Hgb 14.3 (13.5-17.5) g/dL Hct 42.8 (41-53) % MCV 93.9 (80-100) fL MCH 31.4 (26-34) PG MCHC 33.5 (30-36) % RDW 14.6 (11.6-14.8) % Plt Count 178 (150-400) X10^3/uL Neut % (Auto) 40.9 L (50-75) % Lymph % (Auto) 48.7 H (25-40) % Phillips % (Auto) 7.8 (3-14) % Eos % (Auto) 2.2 (2-4) % Baso % (Auto) 0.4 (0-2) % Neut # (Auto) 4300 (6167-1468) /uL Lymph # (Auto) 5100 H (3848-6750) /uL Phillips # (Auto) 800 (0-900) /uL Eos # (Auto) 200 (0-450) /uL Baso # (Auto) 0 (0-100) /uL PT 11.6 (9.4-12.5) SECONDS INR 1.0 (0.9-1.3) APTT 45 H (25.1-36.5) SECONDS Sodium 137 (137-145) mmol/L Potassium 4.0 (3.4-5.1) mmol/L Chloride 108 H (98-107) mmol/L Carbon Dioxide 22 (22-32) mmol/L BUN 20 (9-20) mg/dL Creatinine 1.60 H (0.66-1.25) mg/dL Estimated GFR 45 L (>60) mL/min BUN/Creatinine Ratio 12.5 (6-22) Glucose 91 (80-110) mg/dL Calcium 9.1 (8.4-10.2) mg/dL Magnesium 2.2 (1.6-2.3) mg/dL Total Bilirubin 0.6 (0.2-1.3) mg/dL AST 32 (17-59) IU/L ALT 26 (<50) IU/L Alkaline Phosphatase 115 (38-126) U/L Total Creatine Kinase 125 (55-170) U/L Troponin I < 0.012 (0.01-0.034) ng/mL NT-Pro-B Natriuret Pep 83 (<125) pg/mL Total Protein 6.8 (6.3-8.2) g/dL Albumin 4.3 (3.5-5.0) g/dL Globulin 2.5 (1.7-4.1) g/dL Albumin/Globulin Ratio 1.7 (1.0-2.8) Lipase 81 (23-300) U/L Imaging Data Chest x-ray: Radiologist's Impression: [address] [address] XRay Report Signed Patient: Jesus Lezama MR#: [id number] : 1950 Acct:[id number] Age/Sex: 73 / M Date of Service: 03/30/24 Loc: ED Accession Number: [id number] Procedure: XR chest 1V Ordering Provider: Myra Barone D.O. PROCEDURE: XR CHEST 1V INDICATIONS: chest pain TECHNIQUE: One view of the chest was acquired. COMPARISON: [facility], CR, XR CHEST 1V, 08/23/2022, 19:12. [facility], , XR CHEST 1V, 06/04/2022, 16:27. FINDINGS: Surgical changes and devices: None. Lungs and pleura: Lungs are clear. No pleural effusions or pneumothorax. Mediastinum: Mediastinal contours appear normal. Heart size is normal. Bones and chest wall: No suspicious bony lesions. Overlying soft tissues appear unremarkable. IMPRESSION: No acute cardiopulmonary abnormality is seen. ECG Data Interpretation: EKG interpreted ED physician sinus bradycardia 51 beats per minute, QTC 385, left axis deviation, nonspecific ST changes, No STEMI MDM Narrative Medical decision making narrative: Patient 73-year-old male history of CLL on chemo, hypertension, comes into the ED from home for evaluation of left chest/PAC spasming, states it started several hours prior to arrival, states that he has had this in the past and follow up with Cardiology and they told him that everything was ?fine at that time. Patient states that he has not having the symptoms at this time, was also complaining of the same sensation to his left shoulder, he states that he just wanted to be ?checked out. Patient did have lab work imaging EKG performed here. Chest x-ray no cardiopulmonary abnormalities, EKG nonischemic, troponin negative x2, heart score 3, patient instructed to follow up with his manager room outpatient setting and PCP strict return precautions given verbalized understanding of this agrees to being discharged home with outpatient follow up Discharge Plan Departure Patient Disposition: Home Clinical Impression: Chest pain Instructions: DI for Chest Pain Activity Restrictions/Additional Instructions: Please read the discharge instructions sheet carefully and bring all papers to all doctor follow-up visits, as it may contain information that your doctor may want to see. Disease processes change and evolve, if your symptoms worsen or if you develop any new symptoms that are concerning to you please return for evaluation. Your evaluation today does not show any evidence of any life-threatening/serious illnesses requiring admission to the hospital or surgery. Please follow-up with your doctor for re-evaluation in approximately 1 day. Seek immediate medical attention for any worrisome symptoms. *If you do not have a primary care provider please contact the [facility] Resource line at [phone]. They will ask some questions about your medical history and help get you set up with a doctor in the community. Prescriptions: No Action ibuprofen [Advil Liqui-Gel] 200 MG capsule 200 mg PO Q DAY PRN (Reason: Pain (Scale Score 1-3)) Qty: 0 Patient Comments: A couple weeks ago Fiber (psyllium husk-sugar) 3.4 gram/7 gram powder 1 tbsp PO BID Qty: 822 0RF Rx Instructions: take daily to prevent diverticulitis. Sutab 1.479-0.188- 0.225 gram tablet See Rx Instructions PO PER PKG DIR Qty: 24 0RF Rx Instructions: Take as directed by Physician neomycin 500 mg tablet 1 g PO TID Qty: 6 0RF Rx Instructions: administer at 1 PM, 2 PM, and 10 PM the day prior to surgery metronidazole 500 mg tablet 500 mg PO TID Qty: 3 0RF Rx Instructions: administer at 1 PM, 2 PM, and 10 PM the day prior to surgery bupropion HCl [Wellbutrin XL] 300 mg Tablet Extended Release 24 Hr 300 mg PO QPM allopurinol 100 mg Tablet 200 mg PO BEDTIME tamsulosin [Flomax] 0.4 mg Capsule 0.4 mg PO BEDTIME losartan 100 mg Tablet 100 mg PO BEDTIME zanubrutinib 80 mg Capsule 160 mg PO BID Qty: 120 3RF Rx Instructions: Take 2 tablets in the morning and 2 tablets in evening Referrals: Edi Conte MD [Primary Care Provider] - Stand Alone Forms: Patient Portal/API/Survey
[2024-03-30 21:00] LABS: Troponin I < 0.012 ng/mL (0.01-0.034)
== END 2024-03-30 21:19 | disposition home or self-care (01) ==
PROVIDERS: Emergency Medicine; Emergency Provider Student in an Organized Health Care Education/Training Program; Family Provider Family Medicine; PCP Internal Medicine
DX: R07.9 Chest pain, unspecified (principal); C91.90 Lymphoid leukemia, unspecified not having achieved remission; I10 Essential (primary) hypertension
CPT/HCPCS: 36415; 71045; 80053; 82550; 83690; 83735; 83880; 84484; 85025; 85610; 85730; 93005; 99283; 99284

== ENCOUNTER → 2025-01-12 15:27 | Outpatient (CLI) | payer MEDICARE, SELFPAY ==
[2022-08-29 15:17] VITALS: BMI 28.7
--- NOTE | 2025-01-12 15:28 | DI.US.S_ITS ---
PROCEDURE: US SCROTUM INDICATIONS: Black mole on scrotum/ swelling TECHNIQUE: Real-time scanning was performed of the scrotum and testicles, with image documentation. Color and pulse Doppler interrogation was performed of both testicles. COMPARISON: None. FINDINGS: Right: Testicle is normal in size, and homogenous in echotexture. Epididymis is normal in overall size and morphology. Small epididymal cyst measuring 6 mm. [id number] hydrocele with septations. No varicocele Left: Testicle is normal in size, and homogeneous in echotexture. Epididymis is normal in overall size and morphology. Small epididymal cyst measuring 8 mm. Small hydrocele with septations. No varicocele. No scrotal skin thickening, however there is hyperemia. No discrete mass or fluid collection seen at the mole area. Doppler: Color and pulse Doppler demonstrate normal and symmetric arterial flow in both testicles. IMPRESSION: Scrotal skin hyperemia, without significant wall thickening. No discrete mass lesion by ultrasound at the area of the mole. Clinical followup is recommended. If there is new or worsening clinical concern, reimaging or sampling could be obtained. Right greater than left small hydroceles with septations. Bilateral epididymal cysts Dictated by: Romero Jacobson M.D. on 01/13/2025 at 1:42 Approved by: Romero Jacobson M.D. on 01/13/2025 at 1:46
== END ==
LOC: US 15:28
PROVIDERS: Family Provider Family Medicine; PCP Family Medicine; Referring Provider Family Medicine; Visit Provider Family Medicine
DX: N50.3 Cyst of epididymis (principal); N43.3 Hydrocele, unspecified; D22.9 Melanocytic nevi, unspecified; N50.89 Other specified disorders of the male genital organs
CPT/HCPCS: 76870

== ENCOUNTER → 2025-02-01 07:14 | Outpatient (CLI) | payer MEDICARE, SELFPAY ==
[2022-08-29 15:17] VITALS: BMI 28.7
[2025-02-01 07:50] LABS: Add Manual Diff / Slide Review NO; Hematocrit 44.8 % (41-53); Hemoglobin 15.3 g/dL (13.5-17.5); Lymphocytes Absolute Auto 4400 /uL (1100-4500); Mean Corpuscular HGB Conc 34.2 % (30-36); Mean Corpuscular Hemoglobin 32.0 PG (26-34); Mean Corpuscular Volume 93.4 fL (80-100); Platelet Count 162 X10^3/uL (150-400)
[2025-02-01 08:04] LABS: Alanine Aminotransferase 21 IU/L (<50); Albumin 4.3 g/dL (3.5-5.0); Albumin Globulin Ratio 2.0 (1.0-2.8); Alkaline Phosphatase 112 U/L (38-126); Blood Urea Nitrogen 17 mg/dL (9-20); Calcium 9.0 mg/dL (8.4-10.2); Carbon Dioxide 23 mmol/L (22-32); Chloride 110 mmol/L (98-107); Cholesterol 144 mg/dL (140-199); Estimated Glomerular Filt Rate 45 mL/min (>60); Globulin 2.2 g/dL (1.7-4.1); Glucose 97 mg/dL (70-99); HDL Cholesterol 48 mg/dL (40-60); HEMOLYSIS 17 (0-50); Potassium 4.5 mmol/L (3.4-5.1); Sodium 142 mmol/L (137-145); Total Protein 6.5 g/dL (6.3-8.2); Triglycerides 89 mg/dL (35-150); Uric Acid 5.1 mg/dL (3.5-8.5)
== END ==
PROVIDERS: Family Provider Family Medicine; PCP Family Medicine; Referring Provider Family Medicine; Visit Provider Family Medicine
DX: N18.30 Chronic kidney disease, stage 3 unspecified (principal); C91.90 Lymphoid leukemia, unspecified not having achieved remission; I10 Essential (primary) hypertension
CPT/HCPCS: 36415; 80053; 80061; 84550; 85025